=== PATIENT | male | born 1935 | race African-American/Black ===

== ENCOUNTER 2019-06-19 01:58 | Inpatient (IN) | payer MEDICARE, BC ==
[~2019-06-19] VITALS: Ht 160 cm; Wt 45.0 kg
[2019-06-19] VITALS (14 sets, daily range): BP systolic 89–118; BP diastolic 54–69
[2019-06-19 02:16] LABS: BASO # 0.1 x10^3/uL (0.0-0.2); BASO % 1 % (0-3); EOS # 0.1 x10^3/uL (0.0-0.7); EOS % 1 % (0-3); HEMATOCRIT 27.3 % (39.0-53.0); HEMOGLOBIN 8.3 g/dL (13.0-17.5); LYMPH # 0.4 x10^3/uL (1.0-4.8); LYMPH % 3 % (24-48); MEAN CORPUSCULAR HEMOGLOBIN 25 pg (25-35); MEAN CORPUSCULAR HGB CONC 31 g/dL (31-37); MEAN CORPUSCULAR VOLUME 82 fL (79-100); MONO % 7 % (0-9); NEUT # 12.7 x10^3/uL (1.8-7.7); NEUT % 90 % (31-73); PLATELET COUNT 272 x10^3/uL (140-400); RED BLOOD COUNT 3.32 x10^6/uL (4.30-5.70); RED CELL DISTRIBUTION WIDTH 20.6 % (11.5-14.5); WHITE BLOOD COUNT 14.2 x10^3/uL (4.0-11.0)
[2019-06-19 02:28] LABS: PROTHROMBIN TIME PATIENT 12.4 SEC (11.7-14.0)
[2019-06-19] MEDS ORDERED: methylPREDNISolone SOD SUCC PF 125 MG/2 ML VIAL. IV ONE (02:30)
[2019-06-19] MEDS ORDERED: ALBUTEROL SULFATE 2.5 MG/3 ML NEBU. CONT NEB ONE (02:30)
[2019-06-19 02:34] LABS: CALCIUM 9.3 mg/dL (8.5-10.1); CREATININE 0.8 mg/dL (0.7-1.3); GFR 111.2; POTASSIUM 4.4 mmol/L (3.5-5.1)
[2019-06-19 02:40] LABS: ALBUMIN 2.8 g/dL (3.4-5.0); ALBUMIN/GLOBULIN RATIO 0.6 (1.0-1.7); TOTAL BILIRUBIN 0.3 mg/dL (0.2-1.0); TOTAL PROTEIN 7.4 g/dL (6.4-8.2)
[2019-06-19] MEDS ORDERED: IV NORMAL SALINE 500ML BAG 500 ML IV ONE (03:00)
[2019-06-19] MEDS ORDERED: IV NORMAL SALINE 1000ML BAG 1,000 ML IV ONE (03:00)
[2019-06-19] MEDS ORDERED: PIPERACILLIN/TAZOBACTAM 3.375 GM in IV NORMAL SALINE 50ML 50 ML IV ONE (03:00)
[2019-06-19] MEDS ORDERED: NOREPINEPHRIN 8MG/250ML PREMIX 250 ML IV ONE (03:00)
[2019-06-19 03:03] LABS: BASE EXCESS ABG 10 mmol/L (-3-3); HCO3 ABG 36 mmol/L (21-28); PCO2 ABG 56 mmHg (35-46); PO2 ABG 85 mmHg (65-108); SAT O2 ABG 96 % (92-99)
[2019-06-19 03:14] LABS: FIO2 ABG 100
[2019-06-19] MEDS ORDERED: VANCOMYCIN 1.25 GM in IV NORMAL SALINE 250ML 250 ML IV ONE (03:30)
--- NOTE | 2019-06-19 04:18 | PHYS DOC ---
Adult General Chief Complaint Chief Complaint: DYSPNEA/RESPIRATOY DISTRESS HPI HPI Patient is a 84 year old male who is presenting with in by ambulance shortness of breath C MDM for history of present illness Review of Systems Review of Systems limited by acuity Current Medications Current Medications Current Medications Medications (Trade) Dose Ordered Sig/Roberta Start Time Stop Time Status Last Admin Dose Admin Albuterol Sulfate (Ventolin Neb Soln) 10 mg 1X ONCE 06/19/19 02:30 06/19/19 02:31 DC 06/19/19 02:47 10 MG Albuterol/ Ipratropium (Duoneb) 3 ml RTQID 06/19/19 08:00 06/20/19 07:59 UNV Methylprednisolone Sodium Succinate (SOLU-Medrol 125MG VIAL) 125 mg 1X ONCE 06/19/19 02:30 06/19/19 02:31 DC 06/19/19 02:27 125 MG Norepinephrine Bitartrate 250 ml @ 8.438 mls/ hr 1X ONCE 06/19/19 03:00 06/20/19 08:37 Piperacillin Sod/ Tazobactam Sod 3.375 gm/Sodium Chloride 50 ml @ 100 mls/hr 1X ONCE 06/19/19 03:00 06/19/19 03:29 DC 06/19/19 03:15 100 MLS/HR Sodium Chloride 500 ml @ 500 mls/hr 1X ONCE 06/19/19 03:00 06/19/19 03:59 DC Vancomycin HCl (Vanco Per Pharmacy) 1 each PRN DAILY PRN 06/19/19 02:45 UNV Vancomycin HCl 1.25 gm/Sodium Chloride 250 ml @ 166.667 mls/hr 1X ONCE 06/19/19 03:30 06/19/19 04:59 06/19/19 02:45 166.667 MLS/HR Allergies Allergies Allergies Coded Allergies Type Severity Reaction Last Updated Verified Unable to Assess 06/19/19 No Physical Exam Physical Exam Constitutional: Well developed cachectic and ill-appearing HENT: Normocephalic, atraumatic, bilateral external ears normal, oropharynx moist, no oral exudates, nose normal. [] Eyes: PERRLA Neck: Normal range of motion, no tenderness, supple, no stridor. [] Cardiovascular:Heart rate regular rhythm,difficult exam due to bipap Lungs & Thorax: Patient has decreased breath sounds throughout both lungs but worse on the right base there are some rhonchi there faint wheezing Abdomen: Bowel sounds normal, soft, no tenderness, no masses, no pulsatile masses. [] Skin: Warm, dry, no erythema, no rash. [] Back: No tenderness, no CVA tenderness. [] Extremities: No tenderness, no cyanosis, no clubbing, ROM intact 1+ edema bila terally Neurologic: Alert and oriented X 3, normal motor function, normal sensory function, no focal deficits noted. [] Psychologic: Affect normal, judgement normal, mood normal. [] Current Patient Data Vital Signs Vital Signs Date Time Temp Pulse Resp B/P (MAP) Pulse Ox O2 Delivery O2 Flow Rate FiO2 06/19/19 03:05 BiPAP/CPAP 06/19/19 02:30 93 Lab Values Laboratory Tests Test 06/19/19 02:02 06/19/19 02:03 White Blood Count 14.2 x10^3/uL (4.0-11.0) H Red Blood Count 3.32 x10^6/uL (4.30-5.70) L Hemoglobin 8.3 g/dL (13.0-17.5) L Hematocrit 27.3 % (39.0-53.0) L Mean Corpuscular Volume 82 fL (79-100) Mean Corpuscular Hemoglobin 25 pg (25-35) Mean Corpuscular Hemoglobin Concent 31 g/dL (31-37) Red Cell Distribution Width 20.6 % (11.5-14.5) H Platelet Count 272 x10^3/uL (140-400) Neutrophils (%) (Auto) 90 % (31-73) H Lymphocytes (%) (Auto) 3 % (24-48) L Monocytes (%) (Auto) 7 % (0-9) Eosinophils (%) (Auto) 1 % (0-3) Basophils (%) (Auto) 1 % (0-3) Neutrophils # (Auto) 12.7 x10^3/uL (1.8-7.7) H Lymphocytes # (Auto) 0.4 x10^3/uL (1.0-4.8) L Monocytes # (Auto) 1.0 x10^3/uL (0.0-1.1) Eosinophils # (Auto) 0.1 x10^3/uL (0.0-0.7) Basophils # (Auto) 0.1 x10^3/uL (0.0-0.2) Platelet Estimate Pending Prothrombin Time 12.4 SEC (11.7-14.0) Prothrombin Time INR 1.0 (0.8-1.1) Sodium Level 148 mmol/L (136-145) H Potassium Level 4.4 mmol/L (3.5-5.1) Chloride Level 104 mmol/L (98-107) Carbon Dioxide Level 39 mmol/L (21-32) H Anion Gap 5 (6-14) L Blood Urea Nitrogen 15 mg/dL (8-26) Creatinine 0.8 mg/dL (0.7-1.3) Estimated GFR (Cockcroft-Gault) 111.2 BUN/Creatinine Ratio 19 (6-20) Glucose Level 184 mg/dL (70-99) H Lactic Acid Level 1.0 mmol/L (0.4-2.0) Calcium Level 9.3 mg/dL (8.5-10.1) Total Bilirubin 0.3 mg/dL (0.2-1.0) Aspartate Amino Transferase (AST) 24 U/L (15-37) Alanine Aminotransferase (ALT) 23 U/L (16-63) Alkaline Phosphatase 80 U/L (46-116) Troponin I Quantitative < 0.017 ng/mL (0.000-0.055) TG-Xeb-J-Type Natriuretic Peptide 429 pg/mL (0-449) Total Protein 7.4 g/dL (6.4-8.2) Albumin 2.8 g/dL (3.4-5.0) L Albumin/Globulin Ratio 0.6 (1.0-1.7) L Procalcitonin < 0.10 ng/mL (0.00-0.10) O2 Saturation 96 % (92-99) Arterial Blood pH 7.43 (7.35-7.45) Arterial Blood pCO2 at Patient Temp 56 mmHg (35-46) H Arterial Blood pO2 at Patient Temp 85 mmHg (65-108) Arterial Blood HCO3 36 mmol/L (21-28) H Arterial Blood Base Excess 10 mmol/L (-3-3) H FiO2 100 Laboratory Tests 06/19/19 02:02 Laboratory Tests 06/19/19 02:02 EKG EKG [] Interpretation Time: EKG shows sinus tach rate 102 no acute ischemic changes noted QTC 484 Radiology/Procedures Radiology/Procedures [] Impressions: Right lower lobe pneumonia Course & Med Decision Making Course & Med Decision Making Pertinent Labs and Imaging studies reviewed. (See chart for details) [] Critical care time was 40 minutes exclusive of procedures. 84-year-old male with chief complaint of respiratory distress patient has a history of frequent recurrent pneumonia 8 times this year at according to the son history of CHF COPD basically just come home from rehabilitation yesterday and then today had increasing shortness of breath on bruise trimmer arrival was quite tachypneic and hypoxic they put patient on CPAP but only could get the oxygen up to the high 80s. Patient really denies chest pain has been coughing no fever that he knows of history is limited by the patient's acuity as well as the respiratory distress patient arrived on CPAP mdm/ed course Patient was immediately placed on cardiac monitors and BiPAP as well oxygenation did come up into the mid 90s which is quite. There was one she transient hypotensive episode down into around 60/40 however as soon as we initiated fluids and reposition the patient this resolved completely and did not recur as of the time of this dictation at 4:15 AM. We gave 30 mL per kilo fluid bolus we gave broad-spectrum antibiotics chest x- ray does show a right lower lobe pneumonia Lactic acid was 1.0 on reevaluation at 4:15 AM I noted the blood gas actually look pretty good there was no significant acidosis the oxygenation was adequate patient was stable on BiPAP I think we will keep him there for now. I spoke with his son who is in agreement patient is full code. i d/w sanjana for admit Dragon Disclaimer Dragon Disclaimer This electronic medical record was generated, in whole or in part, using a voice recognition dictation system. Departure Departure Impression: Primary Impression: Pneumonia Additional Impression: Acute respiratory failure Disposition: ADMITTED INPATIENT Admitting Physician: Clarence May Condition: GUARDED Referrals: VERONICA GUTIÉRREZ (PCP) Problem Qualifiers NYLA MILLS MD Jun 19, 2019 04:18
[2019-06-19] MEDS: VANCOMYCIN PER PHARMACY MC PRN ×2 (04:39→10:42)
--- NOTE | 2019-06-19 04:43 | NUR ---
Pharmacy Vancomycin Dosing Note S:Consulted to monitor and dose vancomycin started 06/19/19. O:LAVERNE HERRING is a 84 year old M with Pneumonia . Height: 5 feet, 3 inches Weight: 49.625230 kg [place] Body Weight: 56.90 Adjusted Body Weight: 54.10 Dosing Weight: Actual Other Antibiotics: ZOSYN 3.375GM IV X1 IN ER (06/19) LABS: Last BUN: 15 Last Creatinine: 0.8 Creatinine Clearance: 38 mL/min Last WBC: 14.2 Last Procalcitonin: Tmax (past 24 hours): Microbiology: I/O: Drug Levels: Last level: on at Last dose given at Vancomycin Dosing: Loading Dose: 1250 mg x1 06/19/19 0245 Dosing Weight: Actual Target Trough: 15-20 A: Based on: Actual Wt and CrCl P: 1. 06/20/19 0300 Vancomycin 750 mg IV q24h 2. Follow up Trough level on 06/21/19 at 0230 3. Pharmacy will continue to monitor, follow and adjust therapy as needed. KRISTA PHILLIPS RPH, 06/19/19 0443 Signed: 06/19/19 at 0444 by KRISTA PHILLIPS RPH PHA
--- NOTE | 2019-06-19 05:00 | NUR ---
pt admitted to ICU via bed at 0500. Pt is awake on Nasal canula and able to transfer self to ICU bed. Pt connected to monitor and vital signs taken. Pt requested to use the restroom and was able to walk over to toilet with minimal assistance. Pt walked back into bed and placed back on BIPAP. Current vital signs are HR 86, BP 118/61, RR 18, SP02 86%. SP02 trended up to 95% within 1 minute, pt is A/OX3 and was able to answer all admission questions. Pt currently stable, will continue to monitor.
[2019-06-19 05:01] LABS: % EOS 1 % (0-5); % LYMPHS 3 % (24-48); % SEGS 96 % (35-66); ANISOCYTOSIS MOD; PLT ESTIMATE ADEQUATE (ADEQUATE); POLYCHROMASIA SLIGHT; TARGET CELLS FEW
[2019-06-19] MEDS ORDERED: IPRATRPIUM/ALBUTEROL 0.5/2.5MG 3 ML NEBU. NEB SCH (08:00)
--- NOTE | 2019-06-19 08:40 | RAD ---
Indication:Shortness of breath. TECHNIQUE:Portable AP chest X-ray COMPARISON: None FINDINGS: Heart is normal in size. Opacification is seen of the right lower lung zone. Mild bronchiectasis in the medial aspect of the left upper lobe. Otherwise, left lung is clear. No pneumothorax. Visualized bony thorax is within normal limits. IMPRESSION: Opacification in the right lung base may be secondary to atelectasis, pneumonia or aspiration. Underlying lung malignancy not ruled out. Repeat chest x-ray recommended after medical therapy to ensure resolution. Electronically signed by: Sha Batista DO (06/19/2019 8:37 AM) [facility]
[2019-06-19] MEDS ORDERED: TORS20TA2 PO (09:31)
[2019-06-19] MEDS ORDERED: ENOX60DI SQ (09:31)
[2019-06-19] MEDS ORDERED: SITA100T PO (09:31)
[2019-06-19] MEDS ORDERED: TIOT4MIS3 IH (09:31)
[2019-06-19] MEDS ORDERED: AMIO200T4 PO (09:31)
[2019-06-19] MEDS ORDERED: MAGN300C PO (09:31)
[2019-06-19] MEDS ORDERED: GUAI600T47 PO (09:31)
[2019-06-19] MEDS ORDERED: CARV25TA2 PO (09:31)
[2019-06-19] MEDS ORDERED: SENN-37 PO (09:31)
[2019-06-19] MEDS ORDERED: PRED50TA PO (09:31)
[2019-06-19] MEDS ORDERED: TAMS0.4C97 PO (09:31)
[2019-06-19] MEDS ORDERED: LOVA20TA2 PO (09:31)
[2019-06-19] MEDS ORDERED: ASPI81TA59 PO (09:31)
--- NOTE | 2019-06-19 09:38 | CONS ---
DATE OF CONSULTATION: PULMONARY CONSULTATION ATTENDING PHYSICIAN: Clarence May MD REASON FOR CONSULTATION: Respiratory failure, pneumonia. HISTORY OF PRESENT ILLNESS: The patient is an 84-year-old male who was brought into [facility] because of shortness of breath. He has been coughing. He had no chest pain. No fever, no chills, no headaches, no nausea, vomiting or diarrhea. He was seen in the Emergency Room and I have reviewed the patient's chest x-ray, it shows extensive consolidation involving the right lower lobe. There is a pocket of air as well and possibility of lung abscess cannot be ruled out. The patient was started on vancomycin and Zosyn, I have been asked to see him for further evaluation. He was initially on BiPAP and currently on 6 liters cannula. His ABG showed a pH of 7.43, pCO2 of 56 and a pO2 of 85 with bicarbonate of 36 and 100% of oxygen. PAST MEDICAL HISTORY: Suspect severe COPD, smoked for at least 45-50 years. PAST SURGICAL HISTORY: No recent surgeries. ALLERGIES: None mentioned in [employer]. MEDICATIONS: Reviewed as listed in the MRAD. REVIEW OF SYSTEMS: Twelve-point system obtained. Pertinent positives discussed in my history of present illness, otherwise noncontributory. All systems that were negative were reviewed as well. FAMILY HISTORY: Noncontributory to lungs. PHYSICAL EXAMINATION: VITAL SIGNS: His blood pressure is on the low side 93 systolic, but not on any pressors. Pulse ox is around 95% on 5 liters. HEENT: Sclerae nonicteric. NECK: Supple. LUNGS: With diminished breath sounds, right base. CARDIOVASCULAR: With a regular rate. ABDOMEN: Soft. EXTREMITIES: With no pitting edema. LABORATORY DATA: Labs were reviewed. White cell count 14.2, hemoglobin 8.3 and platelets are 272. ABG discussed in my history of present illness. BUN and creatinine normal. IMPRESSION: 1. Acute on chronic hypoxic respiratory failure secondary to extensive community-acquired pneumonia involving the right lung. Cannot exclude the possibility of lung abscess. 2. Abnormal chest x-ray consistent with right lower lobe consolidation/pneumonia. 3. Moderate protein-calorie malnutrition. 4. Long history of tobacco use, suspect severe chronic obstructive pulmonary disease. 5. Mild hypernatremia. 6. Procalcitonin level less than 0.1, but clinical suspicion for pneumonia is high. RECOMMENDATIONS: 1. Continue with present oxygen at 5-6 liters. Keep saturation 94% and above and use p.r.n. BiPAP. 2. Noncontrast CT chest to better assess for consolidation and to rule out any abscess or empyema. 3. Broad-spectrum antibiotic with vancomycin and Zosyn. 4. We will follow the response to antibiotics in few days. 5. Obtain cultures if fever spikes. 6. Bronchodilators. 7. DVT prophylaxis. 8. Discussed with RN. Critical care time 35 minutes. HARIS ROBLEDO MD DR: ANNABELLA/rosanna JOB#: [id number] / [id number]
--- NOTE | 2019-06-19 10:31 | RAD ---
PQRS Compliance statement: One or more of the following individualized dose reduction techniques were utilized for this examination: 1. Automated exposure control. 2. Adjustment of the mA and/or kV according to patient size. 3. Use of iterative reconstruction technique. Indication:Pneumonia. TECHNIQUE: CT chest without IV contrast with multiplanar reformats. COMPARISON:None FINDINGS: Limited exam due to lack of IV contrast. Heart is moderately enlarged in size. No pericardial effusion. Trace loculated right pleural effusion. Ascending aortic ectasia measuring 3.8 cm in diameter. No enlarged axillary adenopathy. Enlarged mediastinal lymph nodes are seen, the largest measuring 1.7 x 1.3 cm. Evaluation of hilar lymphadenopathy is limited due to lack of IV contrast. Calcified subcarinal lymph nodes are seen likely old healed granulomatous disease. Mild emphysema. Subpleural scarring is seen along the medial aspect of the left upper lobe. Large area of consolidation is seen involving the entire right lower lobe with air bronchograms. Consolidation also seen of the right middle lobe with air bronchograms and interstitial opacities. Multifocal nodular opacities are seen in the dependent portion of the left lower lobe. Visualized noncontrast sections through the liver, spleen, pancreas, adrenals and kidneys within normal limits. Gallstones noted. Compression deformity seen of the T5 vertebral body. No suspicious bony lesion. IMPRESSION: 1. Mediastinal lymphadenopathy may be reactive or metastatic. 2. Large area of consolidations involving the right middle lobe and right lower lobe with air bronchograms. Differential diagnoses includes aspiration or pneumonia. Underlying lung malignancy is not ruled out. Follow-up imaging recommended after medical therapy to ensure resolution. 3. Loculated trace amount of right lower lobe pleural effusion likely parapneumonic effusion. 4. Few nodular opacities in the dependent portion of the left lower lobe likely infectious or aspiration 5. Moderate diffuse emphysema. Electronically signed by: Sha Batista DO (06/19/2019 10:28 AM) [facility]
--- NOTE | 2019-06-19 11:19 | EKG ---
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
--- NOTE | 2019-06-19 11:59 | PDOC ---
Provider Note Provider Note Pt seen.H&P dictated.#[id number]. RON CARBALLO MD Jun 19, 2019 11:59
[2019-06-19] MEDS ORDERED: SENNOSIDES/DOCUSATE 8.6/50MG TABLET. PO PRN (12:00)
[2019-06-19] MEDS ORDERED: DEXTROSE 50% 25 GM / 50ML DISP.SYRIN. IV PRN (12:00)
[2019-06-19] MEDS: PIPERACILLIN/TAZOBACTAM 3.375 GM in IV NORMAL SALINE 50ML 50 ML IV SCH ×3 (12:18→23:01)
[2019-06-19] MEDS: AMIODARONE HCL 200 MG TABLET. PO SCH (12:19)
[2019-06-19] MEDS: CARVEDILOL 3.125 MG TABLET. PO SCH ×2 (12:19→17:20)
[2019-06-19] MEDS: TAMSULOSIN 0.4 MG CAP.ER.24H. PO SCH (12:19)
[2019-06-19] MEDS: ASPIRIN CHEWABLE 81 MG TABLET. PO SCH (12:19)
[2019-06-19] MEDS: LINAGLIPTIN 5 MG TABLET PO SCH (12:19)
[2019-06-19] MEDS: ENOXAPARIN 40 MG/0.4 ML SYRINGE. SQ SCH ×2 (12:20→23:01)
[2019-06-19] MEDS: INSULIN LISPRO 300 UNITS/3 ML VIAL. SQ SCH ×2 (12:27→17:00)
[2019-06-19] MEDS: TORSEMIDE 20 MG TABLET. PO SCH (12:30)
[2019-06-19] MEDS: IPRATRPIUM/ALBUTEROL 0.5/2.5MG 3 ML NEBU. NEB SCH ×3 (12:36→20:00)
--- NOTE | 2019-06-19 13:44 | HP ---
ADMIT DATE: 06/19/2019 MEDICAL HISTORY AND PHYSICAL LOCATION: 107. REASON FOR ADMISSION TO THE HOSPITAL: Respiratory failure, pneumonia, community acquired. HISTORY OF PRESENT ILLNESS: The patient is an 84-year-old male, patient of Dr. Vu. He has been in and out of the hospital. He usually goes to [facility] and was there with pneumonia in the past. He came with shortness of breath, was hypoxic. X-ray shows right lung infiltrate. White count elevated to 14,000, was placed on BiPAP initially and his condition improved. He was also hypotension, was given fluids and was admitted to the ICU. The patient was seen by Dr. Gupta, Pulmonology and ordered a CT of the chest and the patient is started on broad-spectrum antibiotics. PAST MEDICAL HISTORY: Severe COPD, smoker for at least 50 years. Denies any heart problems, diabetes, heart disease. The patient has history of diabetes, hypertension, hyperlipidemia, COPD, and cardiac arrhythmias. PAST SURGICAL HISTORY: No surgeries. ALLERGIES: None available. MEDICATIONS AT HOME: Amiodarone 200 mg daily, aspirin 81 mg daily, Mucinex, senna, Flomax 0.4 daily, Lasix 20 mg daily, Coreg 25 mg twice a day, lovastatin 20 mg daily, magnesium daily, prednisone 10 mg daily, Januvia 100 mg daily, Stiolto daily. FAMILY HISTORY: Unremarkable. REVIEW OF SYMPTOMS: The patient says he is weak, has pain in the right side of the chest and coughing up some sputum. Rest of the 14-system was reviewed. PHYSICAL EXAMINATION: GENERAL: The patient looks older and cachectic. VITAL SIGNS: Temperature 97, pulse 107, respirations 28, blood pressure 115/66, 88 on BiPAP. HEENT: Head is atraumatic. Pupils equal. Oral cavity, slight congestion. NECK: Supple. Thyroid not enlarged. JVD not elevated. CHEST: COPD pattern. CARDIOVASCULAR: S1, S2. LUNGS: Diminished breath sounds and crackles in the right side of the base. ABDOMEN: Soft, bowel sounds present, no mass palpable. EXTERNAL GENITALIA: No Wright. RECTAL: Deferred. EXTREMITIES: No calf tenderness, no edema. NEUROLOGIC: Moving all extremities. LABORATORY DATA: Shows a white count of 14, hemoglobin 8.3, platelets 272. INR 1.0. Electrolytes show sodium 148, potassium 4.4, chloride 104, bicarbonate 39. BUN 15, creatinine 0.8, glucose 184. Lactic acid 1.0. LFTs normal. Troponin is negative. Blood gas shows pH 7.43, pCO2 of 56, pO2 of 85, bicarbonate 36, 96 saturation 100%, FiO2. Chest x-ray, right lung infiltrates. EKG done, report is pending. FINAL IMPRESSION: 1. Health care-acquired pneumonia. 2. Chronic obstructive pulmonary disease. 3. Acute hypoxic respiratory failure, requiring BiPAP. 4. History of cardiac arrhythmias, on amiodarone. 5. History of hypertension. 6. Diabetes. 7. Hyperlipidemia. 8. Benign prostatic hypertrophy. 9.H/o lung cancer 3 yrs ago ,had radiation and chemo, do not want to pursue any more. 10.Recent small pulmonary embolism, diagnosed at . PLAN: At this time, was admit to hospital after blood cultures, sputum and broad-spectrum antibiotics, Zosyn and vancomycin. Pulmonary is consulted and breathing treatments. Was given Solu-Medrol 1 dose and we will check for sputum and blood cultures. CT scan of the chest was ordered and see how the patient can respond and DVT prophylaxis.Poor health,poor prognosis. RON CARBALLO MD DR: MELVIN/rosanna JOB#: [id number] / [id number] VERONICA Crowley VINAYA MD MTDD
--- NOTE | 2019-06-19 15:33 | NUR ---
Bedside swallow evaluation completed. Please refer to full report in intervention section for additional information. Impressions: Mild oropharyngeal dysphagia. Pt demonstrated minimally prolonged mastication w/ solids and mildly increased respiratory effort especially as trials progressed as well as possible subtle s/s aspiration w/ straw drinking of thin liquids. .Suspect possible mild timing or weakness component. Pt has a significant history of multiple pneumonias as reported by pt and family including statement from family that "they have been told his recurrent pneumonia is due to aspiration." Pt and family report no knowledge of prior videoswallow assessment and no hx of modified diet such as soft food or thickened liquids when asked by PATHOLOGIST. Recommendations: Dysphagia II diet w/ thin liquids. No straws. ST f/u for dysphagia per POC. Consider possible videoswallow in future if concerns for aspiration are ongoing. Precautions d/w pt and family and posted in room.
--- NOTE | 2019-06-19 15:55 | NUR ---
Spoke with Dr. May regarding lovenox dosage. Orders received to keep current dosage till tomorrow and to get the most recent medication list from . Will continue to monitor. Addendum: 06/19/19 at 1715 by CURTIS SAWYER RN This RN spoke to pt daughter, whom stated that did not start the lovenox, [facility] did this past Thursday before discharge. This RN called R, spoke to CARLINE Ascencio who looked back into the chart and saw that the medication comment stated it is for PPX. This RN also made a copy of the medication report from [facility] that states the lovenox 60 mg SQ BID for PPX. The doctor following the patient at [facility] was Darline Maxwell, but no further information was able to be obtained at this time. Will continue to monitor.
[2019-06-19] MEDS: LACTOBACILLUS RHAMNOSUS GG 1 CAPSULE. PO SCH (23:00)
[2019-06-19] MEDS: ATORVASTATIN CALCIUM 10 MG TABLET. PO SCH (23:00)
[2019-06-20] VITALS (17 sets, daily range): BP systolic 92–127; BP diastolic 52–84
[2019-06-20] MEDS ORDERED: VANCOMYCIN 750 MG in IV NORMAL SALINE 250ML 250 ML IV SCH (03:00)
[2019-06-20 04:47] LABS: BASO % 0 % (0-3); EOS % 0 % (0-3); HEMATOCRIT 24.2 % (39.0-53.0); HEMOGLOBIN 7.3 g/dL (13.0-17.5); LYMPH # 0.2 x10^3/uL (1.0-4.8); LYMPH % 2 % (24-48); MEAN CORPUSCULAR HEMOGLOBIN 25 pg (25-35); MEAN CORPUSCULAR HGB CONC 30 g/dL (31-37); MEAN CORPUSCULAR VOLUME 82 fL (79-100); MONO % 7 % (0-9); NEUT # 13.9 x10^3/uL (1.8-7.7); NEUT % 91 % (31-73); PLATELET COUNT 224 x10^3/uL (140-400); RED BLOOD COUNT 2.95 x10^6/uL (4.30-5.70); RED CELL DISTRIBUTION WIDTH 20.6 % (11.5-14.5); WHITE BLOOD COUNT 15.2 x10^3/uL (4.0-11.0)
[2019-06-20 05:28] LABS: CALCIUM 9.2 mg/dL (8.5-10.1); CREATININE 0.8 mg/dL (0.7-1.3); GFR 111.2
[2019-06-20] MEDS: PIPERACILLIN/TAZOBACTAM 3.375 GM in IV NORMAL SALINE 50ML 50 ML IV SCH (05:40)
[2019-06-20] MEDS: IPRATRPIUM/ALBUTEROL 0.5/2.5MG 3 ML NEBU. NEB SCH ×4 (07:11→19:48)
[2019-06-20 07:15] LABS: BILIRUBIN,URINE NEGATIVE (NEG); CLARITY,URINE CLEAR; COLOR,URINE YELLOW; NITRITE,URINE NEGATIVE (NEG); PH,URINE 5.5; PROTEIN,URINE NEGATIVE (NEG-TRACE); UROBILINOGEN,URINE 0.2 mg/dL (0.2 mg/dL)
[2019-06-20 07:26] LABS: SQUAMOUS EPITHELIAL CELL,UR FEW /LPF
[2019-06-20 07:27] LABS: WBC,URINE OCC /HPF (0-4)
[2019-06-20 07:29] LABS: BACTERIA,URINE FEW /HPF (0-FEW); RBC,URINE OCC /HPF (0-2)
--- NOTE | 2019-06-20 08:05 | RAD ---
PORTABLE CHEST 1V 06/20/2019 5:00 AM INDICATION: Pneumonia COMPARISON: 06/19/2019 TECHNIQUE: Portable frontal view of the chest is provided. FINDINGS: The cardiomediastinal silhouette is similar in appearance. Airspace consolidation at the right lung base appears similar. There is increased patchy interstitial changes at the left lung base compared to prior examination. There is biapical pleural-parenchymal scarring, left greater than right. There is increased right hilar prominence which may represent lymphadenopathy versus vascular prominence. There are no significant pleural effusions. There is no pulmonary vascular congestion. No pneumothorax. IMPRESSION: There is worsened aeration of the left lung base with similar aeration of the right lung. Findings may reflect worsening pulmonary infiltrates. Persistent right hilar prominence which may represent lymphadenopathy versus vascular prominence. Electronically signed by: Arlette Bahena MD (06/20/2019 8:03 AM) [facility]
[2019-06-20] MEDS: LINAGLIPTIN 5 MG TABLET PO SCH (08:22)
[2019-06-20] MEDS: CARVEDILOL 3.125 MG TABLET. PO SCH ×2 (08:22→17:44)
[2019-06-20] MEDS: TORSEMIDE 20 MG TABLET. PO SCH (08:23)
[2019-06-20] MEDS: AMIODARONE HCL 200 MG TABLET. PO SCH (08:31)
[2019-06-20] MEDS: TAMSULOSIN 0.4 MG CAP.ER.24H. PO SCH (08:31)
[2019-06-20] MEDS: ASPIRIN CHEWABLE 81 MG TABLET. PO SCH (08:31)
[2019-06-20] MEDS: LACTOBACILLUS RHAMNOSUS GG 1 CAPSULE. PO SCH ×2 (08:31→20:36)
[2019-06-20] MEDS: ENOXAPARIN 40 MG/0.4 ML SYRINGE. SQ SCH ×3 (08:37→19:20)
[2019-06-20] MEDS: INSULIN LISPRO 300 UNITS/3 ML VIAL. SQ SCH ×3 (08:52→17:53)
[2019-06-20] MEDS ORDERED: NON FORMULARY ITEM (Tiotropium Br/Olodaterol HCl (Stiolto Respimat Inhal Spray) 4 GM) IH SCH (09:00)
[2019-06-20] MEDS ORDERED: ALBUTEROL SULFATE 2.5 MG/3 ML NEBU. NEB PRN (09:45)
--- NOTE | 2019-06-20 09:46 | PDOC ---
Infectious Disease Note Vital Sign Vital Signs Vital Signs Date Time Temp Pulse Resp B/P (MAP) Pulse Ox O2 Delivery O2 Flow Rate FiO2 06/20/19 08:31 114 117/75 06/20/19 08:00 Nasal Cannula 4.5 06/20/19 07:23 97.9 20 92 97.9 Labs Lab Laboratory Tests Test 06/19/19 12:22 06/19/19 16:43 06/20/19 03:35 06/20/19 06:15 Glucose (Fingerstick) 251 mg/dL (70-99) 183 mg/dL (70-99) White Blood Count 15.2 x10^3/uL (4.0-11.0) Red Blood Count 2.95 x10^6/uL (4.30-5.70) Hemoglobin 7.3 g/dL (13.0-17.5) Hematocrit 24.2 % (39.0-53.0) Mean Corpuscular Volume 82 fL (79-100) Mean Corpuscular Hemoglobin 25 pg (25-35) Mean Corpuscular Hemoglobin Concent 30 g/dL (31-37) Red Cell Distribution Width 20.6 % (11.5-14.5) Platelet Count 224 x10^3/uL (140-400) Neutrophils (%) (Auto) 91 % (31-73) Lymphocytes (%) (Auto) 2 % (24-48) Monocytes (%) (Auto) 7 % (0-9) Eosinophils (%) (Auto) 0 % (0-3) Basophils (%) (Auto) 0 % (0-3) Neutrophils # (Auto) 13.9 x10^3/uL (1.8-7.7) Lymphocytes # (Auto) 0.2 x10^3/uL (1.0-4.8) Monocytes # (Auto) 1.0 x10^3/uL (0.0-1.1) Eosinophils # (Auto) 0.0 x10^3/uL (0.0-0.7) Basophils # (Auto) 0.0 x10^3/uL (0.0-0.2) Sodium Level 149 mmol/L (136-145) Potassium Level 4.0 mmol/L (3.5-5.1) Chloride Level 108 mmol/L (98-107) Carbon Dioxide Level 36 mmol/L (21-32) Anion Gap 5 (6-14) Blood Urea Nitrogen 12 mg/dL (8-26) Creatinine 0.8 mg/dL (0.7-1.3) Estimated GFR (Cockcroft-Gault) 111.2 Glucose Level 165 mg/dL (70-99) Calcium Level 9.2 mg/dL (8.5-10.1) Urine Collection Type Unknown Urine Color Yellow Urine Clarity Clear Urine pH 5.5 Urine Specific [place] 1.020 Urine Protein Negative mg/dL (NEG-TRACE) Urine Glucose (UA) Negative mg/dL (NEG) Urine Ketones (Stick) Negative mg/dL (NEG) Urine Blood Negative (NEG) Urine Nitrite Negative (NEG) Urine Bilirubin Negative (NEG) Urine Urobilinogen Dipstick 0.2 mg/dL (0.2 mg/dL) Urine Leukocyte Esterase Negative (NEG) Urine RBC Occ /HPF (0-2) Urine WBC Occ /HPF (0-4) Urine Squamous Epithelial Cells Few /LPF Urine Bacteria Few /HPF (0-FEW) Urine Mucus Slight /LPF Test 06/20/19 08:46 Glucose (Fingerstick) 161 mg/dL (70-99) Micro Microbiology 06/19/19 Blood Culture - Preliminary, Resulted NO GROWTH AFTER 1 DAY Objective Assessment GNR sepsis - POA 06/19 Acute hypoxic resp failure Pneumonia cannot r/o ? Lung abscess Leukocytosis - S/p steroid DM Arrhythmias Plan Plan of Care Cont vanc Change to Meropenem to cover potential rest bacteria states he thinks he had been on abx at home Add Micafungin with abx exposure and risk for yeast in lung with ? abscess F/u labs and cults Thank you Tried to call daughter Cleo [phone] but no answer #[id number] NEIL ORELLANA MD Jun 20, 2019 09:46
--- NOTE | 2019-06-20 10:15 | PDOC ---
PROGRESS NOTES Subjective Subjective transferred out of ICU Objective Objective Vital Signs Date Time Temp Pulse Resp B/P (MAP) Pulse Ox O2 Delivery O2 Flow Rate FiO2 06/20/19 08:31 114 117/75 06/20/19 08:00 Nasal Cannula 4.5 06/20/19 07:23 97.9 20 92 97.9 Intake and Output 06/20/19 06:59 Intake Total 500 ml Output Total 1150 ml Balance -650 ml Intake Oral 200 ml IV Total 300 ml Output Urine Total 1150 ml Physical Exam Abdomen: Normal bowel sounds, Soft Heart: Regular rate, Normal S1 Extremities: Other (edema) General: mild distress Lungs: Other (dec breath sounds, wheezing and rales) Neck: Supple Neuro: Normal speech Psych/Mental Status: Mood NL Skin: No breakdown Assessment Assessment FINAL IMPRESSION:Gram neg bacteremia. 1. Health care associated pneumonia. 2. Chronic obstructive pulmonary disease. 3. Acute hypoxic respiratory failure, requiring BiPAP. 4. History of cardiac arrhythmias, on amiodarone. 5. History of hypertension. 6. Diabetes. 7. Hyperlipidemia. 8. Benign prostatic hypertrophy. 9.Lung cancer had radiation and chemo at [facility] 10.Recent PE on Lovenox PLAN: blood c/s positive for gram neg bactermia. spoke with pts daughter, he was in and out of hospitals with recenet Pneumonias. [facility] with [facility]enox bid shots. spoke with pulmoanry. ID on the case. poor prognosis. pt want everything done. At this time, was admit to hospital after blood cultures, sputum and broad-spectrum antibiotics, Zosyn and vancomycin. Pulmonary is consulted and breathing treatments. Was given Solu-Medrol 1 dose and we will check for sputum and blood cultures. CT scan of the chest was ordered and see how the patient can respond and DVT prophylaxis. Comment Review of Relevant I have reviewed the following items татьяна (where applicable) has been applied. Labs Laboratory Tests Test 06/19/19 12:22 06/19/19 16:43 06/20/19 03:35 06/20/19 06:15 Glucose (Fingerstick) 251 mg/dL (70-99) 183 mg/dL (70-99) White Blood Count 15.2 x10^3/uL (4.0-11.0) Red Blood Count 2.95 x10^6/uL (4.30-5.70) Hemoglobin 7.3 g/dL (13.0-17.5) Hematocrit 24.2 % (39.0-53.0) Mean Corpuscular Volume 82 fL (79-100) Mean Corpuscular Hemoglobin 25 pg (25-35) Mean Corpuscular Hemoglobin Concent 30 g/dL (31-37) Red Cell Distribution Width 20.6 % (11.5-14.5) Platelet Count 224 x10^3/uL (140-400) Neutrophils (%) (Auto) 91 % (31-73) Lymphocytes (%) (Auto) 2 % (24-48) Monocytes (%) (Auto) 7 % (0-9) Eosinophils (%) (Auto) 0 % (0-3) Basophils (%) (Auto) 0 % (0-3) Neutrophils # (Auto) 13.9 x10^3/uL (1.8-7.7) Lymphocytes # (Auto) 0.2 x10^3/uL (1.0-4.8) Monocytes # (Auto) 1.0 x10^3/uL (0.0-1.1) Eosinophils # (Auto) 0.0 x10^3/uL (0.0-0.7) Basophils # (Auto) 0.0 x10^3/uL (0.0-0.2) Sodium Level 149 mmol/L (136-145) Potassium Level 4.0 mmol/L (3.5-5.1) Chloride Level 108 mmol/L (98-107) Carbon Dioxide Level 36 mmol/L (21-32) Anion Gap 5 (6-14) Blood Urea Nitrogen 12 mg/dL (8-26) Creatinine 0.8 mg/dL (0.7-1.3) Estimated GFR (Cockcroft-Gault) 111.2 Glucose Level 165 mg/dL (70-99) Calcium Level 9.2 mg/dL (8.5-10.1) Urine Collection Type Unknown Urine Color Yellow Urine Clarity Clear Urine pH 5.5 Urine Specific [place] 1.020 Urine Protein Negative mg/dL (NEG-TRACE) Urine Glucose (UA) Negative mg/dL (NEG) Urine Ketones (Stick) Negative mg/dL (NEG) Urine Blood Negative (NEG) Urine Nitrite Negative (NEG) Urine Bilirubin Negative (NEG) Urine Urobilinogen Dipstick 0.2 mg/dL (0.2 mg/dL) Urine Leukocyte Esterase Negative (NEG) Urine RBC Occ /HPF (0-2) Urine WBC Occ /HPF (0-4) Urine Squamous Epithelial Cells Few /LPF Urine Bacteria Few /HPF (0-FEW) Urine Mucus Slight /LPF Test 06/20/19 08:46 Glucose (Fingerstick) 161 mg/dL (70-99) Microbiology 06/19/19 Blood Culture - Preliminary, Resulted NO GROWTH AFTER 1 DAY Medications Current Medications Albuterol Sulfate (Ventolin Neb Soln) 2.5 mg PRN Q4HRS PRN NEB SHORTNESS OF BREATH; Start 06/20/19 at 09:45 Albuterol/ Ipratropium (Duoneb) 3 ml RTQID NEB Last administered on 06/20/19 07:11; Start 06/19/19 at 12:00 Amiodarone HCl (Cordarone) 200 mg DAILY PO Last administered on 06/20/19 08:31; Start 06/19/19 at 12:30 Aspirin (Children'S Aspirin) 81 mg DAILY PO Last administered on 06/20/19 08:31; Start 06/19/19 at 12:30 Atorvastatin Calcium (Lipitor) 5 mg QHS PO Last administered on 06/19/19 23:00; Start 06/19/19 at 21:00 Carvedilol (Coreg) 3.125 mg BIDWMEALS PO Last administered on 06/20/19 08:22; Start 06/19/19 at 12:30 Dextrose (Dextrose 50%-Water Syringe) 12.5 gm PRN Q15MIN PRN IV SEE COMMENTS; Start 06/19/19 at 12:00 Enoxaparin Sodium (Lovenox 40mg Syringe) 40 mg Q12HR SQ Last administered on 06/19/19at 23:01; Start 06/19/19 at 12:30 Ferrous Sulfate (Iron Oral Solution) 300 mg BIDWMEALS PO ; Start 06/20/19 at 17:00 Guaifenesin (Mucinex) 600 mg BID PO Last administered on 06/20/19 08:31; Start 06/19/19 at 12:30 Insulin Human Lispro (HumaLOG) 0-7 UNITS TIDWMEALS SQ Last administered on 10/7/19at 08:52; Start 06/19/19 at 12:00 Lactobacillus Rhamnosus (Culturelle) 1 cap BID PO Last administered on 06/20/19 08:31; Start 06/19/19 at 21:00 Linagliptin (Tradjenta) 5 mg DAILY PO Last administered on 06/20/19 08:22; Start 06/19/19 at 12:30 Meropenem 500 mg/ Sodium Chloride 50 ml @ 100 mls/hr Q6HRS IV ; Start 06/20/19 at 12:00 Micafungin Sodium 100 mg/Dextrose 100 ml @ 100 mls/hr Q24H IV ; Start 06/20/19 at 11:00 Non-Formulary Medication (Tiotropium Br/ Olodaterol HCl (Stiolto Respimat Inhal [place])) 4 gm DAILY IH ; Start 06/20/19 at 09:00; Status UNV Piperacillin Sod/ Tazobactam Sod 3.375 gm/Sodium Chloride 50 ml @ 100 mls/hr Q6HRS IV Last administered on 06/20/19at 05:40; Start 06/19/19 at 12:00; Stop 06/20/19 at 09:37; Status DC Senna/Docusate Sodium (Senna Plus) 2 tab PRN BID PRN PO CONSTIPATION; Start 06/19/19 at 12:00 Tamsulosin HCl (Flomax) 0.8 mg DAILY PO Last administered on 06/20/19at 08:31; Start 06/19/19 at 12:30 Torsemide (Demadex) 5 mg DAILY PO Last administered on 06/20/19at 08:23; Start 06/19/19 at 12:30 Vancomycin HCl (Vancomycin Trough Level) 1 each 1X ONCE MC ; Start 06/21/19 at 02:30; Stop 06/21/19 at 02:31 Vancomycin HCl 750 mg/Sodium Chloride 250 ml @ 250 mls/hr Q24H IV Last administered on 06/20/19at 03:00; Start 06/20/19 at 03:00 Vitals/I & O Vital Sign - Last 24 Hours 06/19/19 06/19/19 06/19/19 06/19/19 12:00 12:19 12:19 12:36 Temp 97.9 97.9 Pulse 95 Resp 20 B/P (MAP) 111/64 (80) 111/64 111/64 Pulse Ox 100 90 O2 Delivery Nasal Cannula Nasal Cannula O2 Flow Rate 6.0 4.0 06/19/19 06/19/19 06/19/19 06/19/19 13:53 15:00 15:15 17:20 Temp 97.6 97.6 Pulse 95 116 Resp 24 B/P (MAP) 116/68 (84) 116/68 Pulse Ox 96 O2 Delivery Nasal Cannula Nasal Cannula Nasal Cannula O2 Flow Rate 6.0 6.0 4.0 06/19/19 06/19/19 06/19/19 06/19/19 19:15 19:35 20:06 22:20 Temp 97.9 97.9 Pulse 113 Resp 20 B/P (MAP) 113/65 (81) Pulse Ox 95 94 86 O2 Delivery Nasal Cannula Nasal Cannula Nasal Cannula BiPAP/CPAP O2 Flow Rate 6.0 6.0 6.0 06/19/19 06/20/19 06/20/19 06/20/19 23:36 03:18 03:32 05:44 Temp 97.9 97.6 97.9 97.6 Pulse 113 113 Resp 18 20 B/P (MAP) 102/69 (80) 107/64 (78) Pulse Ox 97 92 O2 Delivery BiPAP/CPAP Nasal Cannula BiPAP/CPAP BiPAP/CPAP O2 Flow Rate 6.0 06/20/19 06/20/19 06/20/19 06/20/19 07:11 07:23 08:00 08:22 Temp 97.9 97.9 Pulse 114 114 Resp 20 B/P (MAP) 117/75 (89) 117/75 Pulse Ox 91 92 O2 Delivery Nasal Cannula Nasal Cannula Nasal Cannula O2 Flow Rate 4.0 6.0 4.5 06/20/19 08:31 Pulse 114 B/P (MAP) 117/75 Intake and Output 06/19/19 06/19/19 06/20/19 14:59 22:59 06:59 Intake Total 500 ml Output Total 700 ml 450 ml Balance -700 ml 50 ml RON CARBALLO MD Jun 20, 2019 10:15
--- NOTE | 2019-06-20 10:44 | CONS ---
DATE OF CONSULTATION: 06/20/2019 LOCATION: The patient's room is 654. REQUESTING PHYSICIAN: Clarence May MD REASON FOR CONSULTATION: Positive blood cultures. HISTORY OF PRESENT ILLNESS: The patient is an 84-year-old gentleman, who is somewhat of a poor historian. According to the notes, he normally seeks care at and was apparently there recently for pneumonia. He presented to [facility] with shortness of breath and hypoxia. X-rays showed infiltrate with a white blood cell count elevation at 14,000. He underwent a chest CT, also showed some mediastinal lymphadenopathy, large area of consolidation involving the right middle lobe and right lower lobe with air bronchograms, and loculated trace amount of right lower lobe pleural effusion, likely parapneumonic and a few nodular opacities, likely infectious or aspiration and mild diffuse emphysema. He was placed on vancomycin and Zosyn. Blood cultures on are now positive for gram-negative rods. Currently, the patient is lying in bed. He is uncertain if he had fevers or chills or sweats prior to coming. He is coughing some sputum up. Has no gross chest pain. Denies any hemoptysis. No nausea, vomiting. No diarrhea. No dysuria, frequency, or urgency. PAST MEDICAL HISTORY: Positive for severe COPD, smoker for 50 years, diabetes, hypertension, hyperlipidemia, cardiac arrhythmias. Does have a history of pneumonia, and denies any history of Staph or strep, uncertain if he has ever had any urinary tract infections. REVIEW OF SYSTEMS: Otherwise negative. ALLERGIES: He denies any allergies. SOCIAL HISTORY: He is a former smoker. FAMILY HISTORY: Noncontributory. Denies any ill contacts. CURRENT MEDICATIONS: Include vancomycin, Zosyn, amiodarone, aspirin, Lipitor, Coreg, ferrous sulfate, guaifenesin, insulin, lactobacillus, Tradjenta, Flomax, torsemide. PHYSICAL EXAMINATION: VITAL SIGNS: He has been afebrile, current temperature is 97.9, pulse 114, respirations 20, blood pressure 117/75, 4.5 nasal cannula. CONSTITUTIONAL: He is alert. He looks tired. He is not in any acute distress. HEENT: He has normal conjunctivae. Oral cavity, oropharynx was dry. NECK: Without JVD. LUNGS: Without wheeze, decreased in the bases. HEART: S1, S2. ABDOMEN: Soft, no guarding, no rebound. EXTREMITIES: Thin. No clubbing, cyanosis. SKIN: Warm to touch without signs of rash. NEUROLOGIC: He is nonfocal, answered questions. PSYCHIATRIC: Affect appears tired, but was appropriate. LABORATORY DATA: Today, white count 15.2, hemoglobin 7.3, platelets of 91, lymphocytes are 2. Creatinine 0.8. Glucose of 165. Lactic acid was 1. Normal liver function study tests. Urine had a few bacteria, few squamous cells, occasional WBCs, nitrite and leukocyte esterase were negative. Radiology this morning, worsening aeration of left lung base compared to aeration of the right, may reflect worsening pulmonary infiltrates, persistent right hilar prominence. IMPRESSION: 1. Gram-negative sepsis, present on admission on 06/19. 2. Acute hypoxic respiratory failure. 3. Pneumonia, cannot rule out questionable lung abscess. 4. Leukocytosis, status post steroids. 5. Diabetes. 6. Arrhythmias. RECOMMENDATIONS: 1. We will continue vancomycin for now. We will change to meropenem to cover potential resistant bacteria. He states he thinks he had been on antibiotics at home. Also, we will add micafungin with antibiotic exposure risk for yeast in the lung with questionable abscess. 2. Follow up labs and cultures. I did try to call his daughter, Cleo, , but there was no answer. Thank you for allowing me to participate in the patient's care. Should you have any questions, please do not hesitate to contact me. NEIL ORELLANA MD DR: ROSA/rosanna JOB#: [id number] / [id number]
--- NOTE | 2019-06-20 10:56 | PDOC ---
PULMONARY PROGRESS NOTES Subjective MILD soa ON CANULA Vitals Vital Signs Date Time Temp Pulse Resp B/P (MAP) Pulse Ox O2 Delivery O2 Flow Rate FiO2 06/20/19 08:31 114 117/75 06/20/19 08:00 Nasal Cannula 4.5 06/20/19 07:23 97.9 20 92 97.9 General: Alert, Mild Distress Lungs: Other (crackles right side) Cardiovascular: S1 Abdomen: Soft Neuro Exam: Alert Extremities: No Edema Skin: Warm Labs Laboratory Tests Test 06/19/19 02:02 06/19/19 02:03 06/19/19 12:22 06/19/19 16:43 White Blood Count 14.2 x10^3/uL (4.0-11.0) Red Blood Count 3.32 x10^6/uL (4.30-5.70) Hemoglobin 8.3 g/dL (13.0-17.5) Hematocrit 27.3 % (39.0-53.0) Mean Corpuscular Volume 82 fL (79-100) Mean Corpuscular Hemoglobin 25 pg (25-35) Mean Corpuscular Hemoglobin Concent 31 g/dL (31-37) Red Cell Distribution Width 20.6 % (11.5-14.5) Platelet Count 272 x10^3/uL (140-400) Neutrophils (%) (Auto) 90 % (31-73) Lymphocytes (%) (Auto) 3 % (24-48) Monocytes (%) (Auto) 7 % (0-9) Eosinophils (%) (Auto) 1 % (0-3) Basophils (%) (Auto) 1 % (0-3) Neutrophils # (Auto) 12.7 x10^3/uL (1.8-7.7) Lymphocytes # (Auto) 0.4 x10^3/uL (1.0-4.8) Monocytes # (Auto) 1.0 x10^3/uL (0.0-1.1) Eosinophils # (Auto) 0.1 x10^3/uL (0.0-0.7) Basophils # (Auto) 0.1 x10^3/uL (0.0-0.2) Segmented Neutrophils % 96 % (35-66) Lymphocytes % 3 % (24-48) Eosinophils % 1 % (0-5) Platelet Estimate Adequate (ADEQUATE) Polychromasia Slight Anisocytosis Mod Target Cells Few Prothrombin Time 12.4 SEC (11.7-14.0) Prothromb Time International Ratio 1.0 (0.8-1.1) Sodium Level 148 mmol/L (136-145) Potassium Level 4.4 mmol/L (3.5-5.1) Chloride Level 104 mmol/L (98-107) Carbon Dioxide Level 39 mmol/L (21-32) Anion Gap 5 (6-14) Blood Urea Nitrogen 15 mg/dL (8-26) Creatinine 0.8 mg/dL (0.7-1.3) Estimated GFR (Cockcroft-Gault) 111.2 BUN/Creatinine Ratio 19 (6-20) Glucose Level 184 mg/dL (70-99) Lactic Acid Level 1.0 mmol/L (0.4-2.0) Calcium Level 9.3 mg/dL (8.5-10.1) Total Bilirubin 0.3 mg/dL (0.2-1.0) Aspartate Amino Transf (AST/SGOT) 24 U/L (15-37) Alanine Aminotransferase (ALT/SGPT) 23 U/L (16-63) Alkaline Phosphatase 80 U/L (46-116) Troponin I Quantitative < 0.017 ng/mL (0.000-0.055) WN-Tti-R-Type Natriuretic Peptide 429 pg/mL (0-449) Total Protein 7.4 g/dL (6.4-8.2) Albumin 2.8 g/dL (3.4-5.0) Albumin/Globulin Ratio 0.6 (1.0-1.7) Procalcitonin < 0.10 ng/mL (0.00-0.10) O2 Saturation 96 % (92-99) Arterial Blood pH 7.43 (7.35-7.45) Arterial Blood pCO2 at Patient Temp 56 mmHg (35-46) Arterial Blood pO2 at Patient Temp 85 mmHg (65-108) Arterial Blood HCO3 36 mmol/L (21-28) Arterial Blood Base Excess 10 mmol/L (-3-3) FiO2 100 Glucose (Fingerstick) 251 mg/dL (70-99) 183 mg/dL (70-99) Test 06/20/19 03:35 06/20/19 06:15 06/20/19 08:46 White Blood Count 15.2 x10^3/uL (4.0-11.0) Red Blood Count 2.95 x10^6/uL (4.30-5.70) Hemoglobin 7.3 g/dL (13.0-17.5) Hematocrit 24.2 % (39.0-53.0) Mean Corpuscular Volume 82 fL (79-100) Mean Corpuscular Hemoglobin 25 pg (25-35) Mean Corpuscular Hemoglobin Concent 30 g/dL (31-37) Red Cell Distribution Width 20.6 % (11.5-14.5) Platelet Count 224 x10^3/uL (140-400) Neutrophils (%) (Auto) 91 % (31-73) Lymphocytes (%) (Auto) 2 % (24-48) Monocytes (%) (Auto) 7 % (0-9) Eosinophils (%) (Auto) 0 % (0-3) Basophils (%) (Auto) 0 % (0-3) Neutrophils # (Auto) 13.9 x10^3/uL (1.8-7.7) Lymphocytes # (Auto) 0.2 x10^3/uL (1.0-4.8) Monocytes # (Auto) 1.0 x10^3/uL (0.0-1.1) Eosinophils # (Auto) 0.0 x10^3/uL (0.0-0.7) Basophils # (Auto) 0.0 x10^3/uL (0.0-0.2) Sodium Level 149 mmol/L (136-145) Potassium Level 4.0 mmol/L (3.5-5.1) Chloride Level 108 mmol/L (98-107) Carbon Dioxide Level 36 mmol/L (21-32) Anion Gap 5 (6-14) Blood Urea Nitrogen 12 mg/dL (8-26) Creatinine 0.8 mg/dL (0.7-1.3) Estimated GFR (Cockcroft-Gault) 111.2 Glucose Level 165 mg/dL (70-99) Calcium Level 9.2 mg/dL (8.5-10.1) Urine Collection Type Unknown Urine Color Yellow Urine Clarity Clear Urine pH 5.5 Urine Specific [place] 1.020 Urine Protein Negative mg/dL (NEG-TRACE) Urine Glucose (UA) Negative mg/dL (NEG) Urine Ketones (Stick) Negative mg/dL (NEG) Urine Blood Negative (NEG) Urine Nitrite Negative (NEG) Urine Bilirubin Negative (NEG) Urine Urobilinogen Dipstick 0.2 mg/dL (0.2 mg/dL) Urine Leukocyte Esterase Negative (NEG) Urine RBC Occ /HPF (0-2) Urine WBC Occ /HPF (0-4) Urine Squamous Epithelial Cells Few /LPF Urine Bacteria Few /HPF (0-FEW) Urine Mucus Slight /LPF Glucose (Fingerstick) 161 mg/dL (70-99) Laboratory Tests Test 06/19/19 12:22 06/19/19 16:43 06/20/19 03:35 06/20/19 06:15 Glucose (Fingerstick) 251 mg/dL (70-99) 183 mg/dL (70-99) White Blood Count 15.2 x10^3/uL (4.0-11.0) Red Blood Count 2.95 x10^6/uL (4.30-5.70) Hemoglobin 7.3 g/dL (13.0-17.5) Hematocrit 24.2 % (39.0-53.0) Mean Corpuscular Volume 82 fL (79-100) Mean Corpuscular Hemoglobin 25 pg (25-35) Mean Corpuscular Hemoglobin Concent 30 g/dL (31-37) Red Cell Distribution Width 20.6 % (11.5-14.5) Platelet Count 224 x10^3/uL (140-400) Neutrophils (%) (Auto) 91 % (31-73) Lymphocytes (%) (Auto) 2 % (24-48) Monocytes (%) (Auto) 7 % (0-9) Eosinophils (%) (Auto) 0 % (0-3) Basophils (%) (Auto) 0 % (0-3) Neutrophils # (Auto) 13.9 x10^3/uL (1.8-7.7) Lymphocytes # (Auto) 0.2 x10^3/uL (1.0-4.8) Monocytes # (Auto) 1.0 x10^3/uL (0.0-1.1) Eosinophils # (Auto) 0.0 x10^3/uL (0.0-0.7) Basophils # (Auto) 0.0 x10^3/uL (0.0-0.2) Sodium Level 149 mmol/L (136-145) Potassium Level 4.0 mmol/L (3.5-5.1) Chloride Level 108 mmol/L (98-107) Carbon Dioxide Level 36 mmol/L (21-32) Anion Gap 5 (6-14) Blood Urea Nitrogen 12 mg/dL (8-26) Creatinine 0.8 mg/dL (0.7-1.3) Estimated GFR (Cockcroft-Gault) 111.2 Glucose Level 165 mg/dL (70-99) Calcium Level 9.2 mg/dL (8.5-10.1) Urine Collection Type Unknown Urine Color Yellow Urine Clarity Clear Urine pH 5.5 Urine Specific [place] 1.020 Urine Protein Negative mg/dL (NEG-TRACE) Urine Glucose (UA) Negative mg/dL (NEG) Urine Ketones (Stick) Negative mg/dL (NEG) Urine Blood Negative (NEG) Urine Nitrite Negative (NEG) Urine Bilirubin Negative (NEG) Urine Urobilinogen Dipstick 0.2 mg/dL (0.2 mg/dL) Urine Leukocyte Esterase Negative (NEG) Urine RBC Occ /HPF (0-2) Urine WBC Occ /HPF (0-4) Urine Squamous Epithelial Cells Few /LPF Urine Bacteria Few /HPF (0-FEW) Urine Mucus Slight /LPF Test 06/20/19 08:46 Glucose (Fingerstick) 161 mg/dL (70-99) Medications Active Scripts Medications Dose Route/Sig Max Daily Dose Days Date Category Torsemide 20 Mg Tablet 5 Mg PO DAILY 06/19/19 Reported Flomax (Tamsulosin Hcl) 0.4 Mg Cap.er.24h 0.8 Mg PO DAILY 06/19/19 Reported Stiolto Respimat Inhal [place] (Tiotropium Br/Olodaterol HCl) 4 Gm Mist.inhal 4 Gm IH DAILY 06/19/19 Reported Januvia (Sitagliptin Phosphate) 100 Mg Tablet 1 Tab PO DAILY 06/19/19 Reported Senokot-S Tablet (Sennosides/Docusate Sodium) 1 Each Tablet 2 Tab PO PRN BID 06/19/19 Reported Magnesium 300 Mg Capsule (Magnesium Oxide/Mag Aa Chelate) 300 Mg Capsule 400 Mg PO DAILY 06/19/19 Reported Lovenox (Enoxaparin Sodium) 60 Mg/0.6 Ml Disp.syrin 60 Mg SQ BID 06/19/19 Reported Lovastatin 20 Mg Tablet 20 Mg PO HS 06/19/19 Reported Mucinex (Guaifenesin) 600 Mg Tablet.er 600 Mg PO BID 06/19/19 Reported Prednisone 50 Mg Tablet 10 Mg PO DAILY 06/19/19 Reported Carvedilol 25 Mg Tablet 3.125 Mg PO BIDWMEALS 06/19/19 Reported Children's Aspirin (Aspirin) 81 Mg Tab.chew 81 Mg PO DAILY 06/19/19 Reported Amiodarone Hcl 200 Mg Tablet 200 Mg PO DAILY 06/19/[address] CHEST IMPRESSION: 1. Mediastinal lymphadenopathy may be reactive or metastatic. 2. Large area of consolidations involving the right middle lobe and right lower lobe with air bronchograms. Differential diagnoses includes aspiration or pneumonia. Underlying lung malignancy is not ruled out. Follow-up imaging recommended after medical therapy to ensure resolution. 3. Loculated trace amount of right lower lobe pleural effusion likely parapneumonic effusion. 4. Few nodular opacities in the dependent portion of the left lower lobe likely infectious or aspiration 5. Moderate diffuse emphysema. Electronically signed by: Sha Batista DO (06/19/2019 10:28 AM) [email or web address] Impression . 1. Acute on chronic hypoxic respiratory failure secondary to extensive HCAP involving the right lung. 2. Per records from [facility], h/o Left lung cancer , treated with XRT/ Chemo at , ct chest with residual para-aortic SHERYL residual density 3. Moderate protein-calorie malnutrition. 4. Long history of tobacco use, suspect severe chronic obstructive pulmonary disease. 5. Mild hypernatremia. 6. Recent h/o pulmonary embolism at , will get records from , on lovenox. Plan . RECOMMENDATIONS: 1. Continue with present oxygen at 5-6 liters. Keep saturation 94% and above and use p.r.n. BiPAP. 2. CT chest reviewed. 3. Broad-spectrum antibiotic with vancomycin and Meropenum 4. We will follow the response to antibiotics in few days. 5. Obtain cultures if fever spikes. 6. Bronchodilators. 7. full dose AC 8. Obtain records from regarding PE, lung cancer history 9. Discussed with RN.and DR May d/w patient advance directives, wants full code but short term intubation if needed. HARIS ROBLEDO MD Jun 20, 2019 10:56
[2019-06-20] MEDS ORDERED: predniSONE 20 MG TABLET PO ONE (11:00)
[2019-06-20] MEDS: MICAFUNGIN 100 MG in IV DEXTROSE 5% 100ML 100 ML IV SCH (11:40)
--- NOTE | 2019-06-20 11:47 | NUR ---
Assumed care, Venous doppler completed
--- NOTE | 2019-06-20 11:51 | RAD ---
EXAM: Bilateral lower extremity venous Doppler. HISTORY: Bilateral lower extremity pain/swelling. Recent pulmonary embolism. Anticoagulated. COMPARISON: None. FINDINGS: Grayscale and Doppler analysis of the both lower extremity deep venous systems was performed with graded compression and augmentation. The common femoral, greater saphenous, superficial femoral, popliteal and calf veins were assessed. There is no evidence of deep venous thrombosis. IMPRESSION: 1. No evidence of deep venous thrombosis. Electronically signed by: Ron Hu MD (06/20/2019 11:49 AM) [email or web address]
[2019-06-20] MEDS: MEROPENEM 500 MG in IV NORMAL SALINE 50ML 50 ML IV SCH ×3 (12:27→23:56)
[2019-06-20 12:40] LABS: BASE EXCESS ABG 7 mmol/L (-3-3); HCO3 ABG 34 mmol/L (21-28); PO2 ABG 98 mmHg (65-108); SAT O2 ABG 97 % (92-99)
[2019-06-20 12:43] LABS: FIO2 ABG 65; PCO2 ABG 61 mmHg (35-46)
[2019-06-20] MEDS: methylPREDNISolone SOD SUCC PF 40 MG/ML VIAL. IV SCH ×2 (14:36→21:30)
--- NOTE | 2019-06-20 14:44 | NUR ---
1410 Up to bedside per request to use urinal, voided 200cc became unresponsive & fell back into bed, was on oxygen at 5L/nc, sat level 77%, placed back on Bi-pap with same settings as previous 03/05, rate 16 @ 65 %, sat level up to 85%, rearranged in bed, HOB elevated, called for rapid response, sat level 91% @ 1414 opening eyes, , vital signs 100/59-100, RR team present, Don Harrison RT, Jumana Duarte RN nursing dive supervisor, ICU Jodie Castillo RN also present, [address] May received order to transfer to ICU. Continues to cough up delgado sputum, HOB elevated.
--- NOTE | 2019-06-20 15:06 | NUR ---
Transferred to ICU per bed by Jodie Castillo< RN
[2019-06-20] MEDS: VANCOMYCIN PER PHARMACY MC PRN (15:11)
--- NOTE | 2019-06-20 15:15 | NUR ---
Rapid resp: Called to rm 654 for c/o resp distress, low sat upon standing to urinate.Pt was on 5l n/c at that time. Pt familiar to this nurse. On arrioval, pt on Bipap with sat 94%. A&O TURNER VSS. Pt denied any discomfort and talking under mask. pt spit up mod amt creamy foamy sputum unchanged from yesterday. Spoke with Dr Gupta and would prefer pt to be back in ICU with fragile resp status (pneumonia and lung cancer) To ICU per bed and NC 5L then Bipap in ICU
--- NOTE | 2019-06-20 15:45 | NUR ---
SW following pt for dc planning. Chart reviewed and discussed with RN. Pt is an ICU transfer from the weekend. Pt is currently living with his son and was admitted to [facility] after leaving a day before from [facility]. PT/OT- recommends home health but on hold today. ID following pt. Pt is going to be transferred to ICU. SW will provide a handoff to ICU SS.
--- NOTE | 2019-06-20 17:00 | NUR ---
Pt transferred to ICU RM 109 @ 1515 today. Bipap placed with 65% FiO2. Pt alert and oriented. No complaints of pain.
[2019-06-20] MEDS: FERROUS SULFATE ORAL 300 MG/5 ML SOLUTION. PO SCH (17:43)
--- NOTE | 2019-06-20 18:34 | PDOC2 ---
PALLIATIVE CARE Palliative Care Note Palliative Care Consult requested to address goals of care Medical Assessment per medical record;. 1. Acute on chronic hypoxic respiratory failure secondary to extensive HCAP involving the right lung. 2. Per records from [facility], h/o Left lung cancer , treated with XRT/ Chemo at , ct chest with residual para-aortic SHERYL residual density 3. Moderate protein-calorie malnutrition. 4. Long history of tobacco use, suspect severe chronic obstructive pulmonary disease. 5. Mild hypernatremia. 6. Recent h/o pulmonary embolism at , Patient alert. Spoke with daughter. States decisions are made as a family. Will arrange family meeting when family available. Full Code. ASHLEY FUENTES Jun 20, 2019 18:34
[2019-06-20] MEDS: ATORVASTATIN CALCIUM 10 MG TABLET. PO SCH (20:36)
[2019-06-21] VITALS (27 sets, daily range): BP systolic 84–125; BP diastolic 54–78
[2019-06-21] MEDS ORDERED: VANCOMYCIN 750 MG in IV NORMAL SALINE 250ML 250 ML IV SCH (03:00)
[2019-06-21 03:08] LABS: VANC TR 5.4 mcg/mL (10.0-20.0)
[2019-06-21] MEDS: VANCOMYCIN PER PHARMACY MC PRN (03:21)
--- NOTE | 2019-06-21 03:32 | NUR ---
Pharmacy Vancomycin Dosing Note S: Consulted to monitor and dose vancomycin started 06/19/19. O: LAVERNE HERRING is a 84 year old M with Pneumonia, . Other Antibiotics: MERREM 500MG IV Q6H (06/20 - ) MYCAMINE 100MG IV Q24H (06/20 - ) ZOSYN - D/C'D LABS: Last BUN: 12 Last Creatinine: 0.8 Creatinine Clearance: 34 mL/min Last WBC: 15.2 Last Procalcitonin: <0.1 Tmax (past 24 hours): 98.2 Microbiology: BLOOD: GNR IN / BOTTLES I/O: 500/1150 Drug Levels: Last Trough level: 5.4 on 06/21/19 at 0235 Last dose given 06/20/19 at 0300 Vancomycin Dosing: Dosing Weight: Actual Target Trough: 15-20 A: Based on: Katherine Church Wt and CrCl P: 1. 06/21/19 0300 Increase Vancomycin 750 mg IV q12h 2. Follow up Trough level on 06/22/19 at 0230 3. Pharmacy will continue to monitor, follow and adjust therapy as needed. KRISTA PHILLIPS RPH, 06/21/19331 Signed: 06/21/19 at 0333 by KRISTA PHILLIPS RPH PHA
[2019-06-21 04:56] LABS: BASO % 0 % (0-3); EOS % 0 % (0-3); HEMATOCRIT 23.1 % (39.0-53.0); LYMPH # 0.2 x10^3/uL (1.0-4.8); LYMPH % 2 % (24-48); MEAN CORPUSCULAR HEMOGLOBIN 25 pg (25-35); MEAN CORPUSCULAR HGB CONC 30 g/dL (31-37); MEAN CORPUSCULAR VOLUME 81 fL (79-100); MONO # 0.2 x10^3/uL (0.0-1.1); MONO % 2 % (0-9); NEUT # 11.3 x10^3/uL (1.8-7.7); NEUT % 96 % (31-73); PLATELET COUNT 183 x10^3/uL (140-400); RED BLOOD COUNT 2.84 x10^6/uL (4.30-5.70); RED CELL DISTRIBUTION WIDTH 20.2 % (11.5-14.5); WHITE BLOOD COUNT 11.8 x10^3/uL (4.0-11.0)
[2019-06-21 04:58] LABS: HEMOGLOBIN 6.9 g/dL (13.0-17.5)
[2019-06-21 05:02] LABS: CALCIUM 9.2 mg/dL (8.5-10.1); GFR 85.9; POTASSIUM 4.2 mmol/L (3.5-5.1)
[2019-06-21] MEDS: MEROPENEM 500 MG in IV NORMAL SALINE 50ML 50 ML IV SCH ×4 (05:35→23:51)
[2019-06-21] MEDS: methylPREDNISolone SOD SUCC PF 40 MG/ML VIAL. IV SCH ×4 (05:35→21:30)
--- NOTE | 2019-06-21 07:10 | PDOC ---
Infectious Disease Note Subjective Subjective More comfortable. Still cough but less. No blood No F/C/D/N/itch ROS ROS o/w neg Vital Sign Vital Signs Vital Signs Date Time Temp Pulse Resp B/P (MAP) Pulse Ox O2 Delivery O2 Flow Rate FiO2 06/21/19 06:00 80 18 98/62 (74) 95 BiPAP/CPAP 06/21/19 05:04 4.0 06/21/19 04:00 98.1 98.1 Physical Exam PHYSICAL EXAM CONSTITUTIONAL: He is alert. He looks less tired. He is not in any acute distress.Coop - looks kendrick HEENT: He has normal conjunctivae. Oral cavity, oropharynx was dry. NECK: Without JVD. LUNGS: mild right rhonchi HEART: S1, S2. ABDOMEN: Soft, no guarding, no rebound. EXTREMITIES: Thin. No clubbing, cyanosis. SKIN: Warm to touch without signs of rash. NEUROLOGIC: He is nonfocal, answered questions. PSYCHIATRIC: Affect appropriate Labs Lab Laboratory Tests Test 06/20/19 08:46 06/20/19 11:37 06/20/19 12:15 06/20/19 17:43 Glucose (Fingerstick) 161 mg/dL (70-99) 140 mg/dL (70-99) 153 mg/dL (70-99) O2 Saturation 97 % (92-99) Arterial Blood pH 7.36 (7.35-7.45) Arterial Blood pCO2 at Patient Temp 61 mmHg (35-46) Arterial Blood pO2 at Patient Temp 98 mmHg (65-108) Arterial Blood HCO3 34 mmol/L (21-28) Arterial Blood Base Excess 7 mmol/L (-3-3) FiO2 65 Test 06/20/19 20:35 06/21/19 02:35 06/21/19 04:30 Glucose (Fingerstick) 131 mg/dL (70-99) Vancomycin Level Trough 5.4 mcg/mL (10.0-20.0) Vancomycin Last Dose Date 06/20/19 Vancomycin Last Dose Time 0300 White Blood Count 11.8 x10^3/uL (4.0-11.0) Red Blood Count 2.84 x10^6/uL (4.30-5.70) Hemoglobin 6.9 g/dL (13.0-17.5) Hematocrit 23.1 % (39.0-53.0) Mean Corpuscular Volume 81 fL (79-100) Mean Corpuscular Hemoglobin 25 pg (25-35) Mean Corpuscular Hemoglobin Concent 30 g/dL (31-37) Red Cell Distribution Width 20.2 % (11.5-14.5) Platelet Count 183 x10^3/uL (140-400) Neutrophils (%) (Auto) 96 % (31-73) Lymphocytes (%) (Auto) 2 % (24-48) Monocytes (%) (Auto) 2 % (0-9) Eosinophils (%) (Auto) 0 % (0-3) Basophils (%) (Auto) 0 % (0-3) Neutrophils # (Auto) 11.3 x10^3/uL (1.8-7.7) Lymphocytes # (Auto) 0.2 x10^3/uL (1.0-4.8) Monocytes # (Auto) 0.2 x10^3/uL (0.0-1.1) Eosinophils # (Auto) 0.0 x10^3/uL (0.0-0.7) Basophils # (Auto) 0.0 x10^3/uL (0.0-0.2) Sodium Level 148 mmol/L (136-145) Potassium Level 4.2 mmol/L (3.5-5.1) Chloride Level 108 mmol/L (98-107) Carbon Dioxide Level 38 mmol/L (21-32) Anion Gap 2 (6-14) Blood Urea Nitrogen 16 mg/dL (8-26) Creatinine 1.0 mg/dL (0.7-1.3) Estimated GFR (Cockcroft-Gault) 85.9 Glucose Level 187 mg/dL (70-99) Calcium Level 9.2 mg/dL (8.5-10.1) Micro Microbiology 06/19/19 Blood Culture - Preliminary, Resulted NO GROWTH AFTER 1 DAY Objective Assessment GNR sepsis - POA 06/19 Acute hypoxic resp failure - U/S - neg for DVT - improved this am - on Bipap overnight Pneumonia cannot r/o ? Lung abscess Leukocytosis - S/p steroid - better Anemia DM Arrhythmias Plan Plan of Care Discont vanc as improving with low Level Cont Meropenem to cover potential rest bacteria states he thinks he had been on abx at home Cont Micafungin with abx exposure and risk for yeast in lung with ? abscess F/u labs and cults Anemia per primary D/w nursing NEIL ORELLANA MD Jun 21, 2019 07:10
--- NOTE | 2019-06-21 07:51 | RAD ---
PORTABLE CHEST 1V 06/21/2019 5:00 AM INDICATION: CHF, pneumonia COMPARISON: 06/20/2019 TECHNIQUE: Portable frontal view of the chest is provided. FINDINGS: The cardiomediastinal silhouette is similar in appearance. Similar consolidative change at the right lung base with small to moderate right pleural effusion. Coarse interstitial changes appears stable. Patchy interstitial airspace disease at the left lung base is not significantly changed. Similar left retrocardiac density is noted. No new airspace consolidation. No pneumothorax. Similar appearance of the visualized osseous structures. IMPRESSION: Aeration of the lungs appears similar to the prior examination. Electronically signed by: Arlette Bahena MD (06/21/2019 7:48 AM) [facility]
--- NOTE | 2019-06-21 08:14 | NUR ---
Pt transferred to ICU and will require new orders to resume therapy services. Will await new orders once medically stable. Addendum: 06/21/19 at 0815 by PARAG STOUT PT Amended: Links added.
[2019-06-21] MEDS: LACTOBACILLUS RHAMNOSUS GG 1 CAPSULE. PO SCH ×2 (08:26→21:29)
[2019-06-21] MEDS: FERROUS SULFATE ORAL 300 MG/5 ML SOLUTION. PO SCH ×2 (08:26→17:33)
[2019-06-21] MEDS: TORSEMIDE 20 MG TABLET. PO SCH (08:26)
[2019-06-21] MEDS: AMIODARONE HCL 200 MG TABLET. PO SCH (08:27)
[2019-06-21] MEDS: LINAGLIPTIN 5 MG TABLET PO SCH (08:27)
[2019-06-21] MEDS: ASPIRIN CHEWABLE 81 MG TABLET. PO SCH (08:27)
[2019-06-21] MEDS: TAMSULOSIN 0.4 MG CAP.ER.24H. PO SCH (08:27)
[2019-06-21] MEDS: CARVEDILOL 3.125 MG TABLET. PO SCH ×2 (08:27→17:34)
[2019-06-21] MEDS: BUMETANIDE 1 MG/4 ML VIAL. IV SCH ×2 (08:28→13:57)
[2019-06-21] MEDS: ENOXAPARIN 40 MG/0.4 ML SYRINGE. SQ SCH ×2 (08:28→21:29)
[2019-06-21] MEDS: INSULIN LISPRO 300 UNITS/3 ML VIAL. SQ SCH ×3 (08:28→17:35)
[2019-06-21] MEDS: IPRATRPIUM/ALBUTEROL 0.5/2.5MG 3 ML NEBU. NEB SCH ×4 (08:46→20:04)
[2019-06-21] MEDS ORDERED: predniSONE 10 MG TABLET PO SCH (09:00)
--- NOTE | 2019-06-21 09:30 | PDOC ---
PULMONARY PROGRESS NOTES Subjective TRANSFERRED TO ICU PLACE ON BIPAP LAST VONDA PT NOT MORE SOA NOW OFF BIPAP ON 02 Vitals Vital Signs Date Time Temp Pulse Resp B/P (MAP) Pulse Ox O2 Delivery O2 Flow Rate FiO2 06/21/19 09:19 98.7 102 20 110/63 98.7 06/21/19 08:46 97 Nasal Cannula 5.0 ROS: No Nausea, No Chest Pain, No Abdominal Pain, No Increase Cough General: Alert, Mild Distress Lungs: Crackles Cardiovascular: S1, S2 Abdomen: Soft Neuro Exam: Alert Extremities: No Edema Skin: Warm Labs Laboratory Tests Test 06/19/19 12:22 06/19/19 16:43 06/20/19 03:35 06/20/19 06:15 Glucose (Fingerstick) 251 mg/dL (70-99) 183 mg/dL (70-99) White Blood Count 15.2 x10^3/uL (4.0-11.0) Red Blood Count 2.95 x10^6/uL (4.30-5.70) Hemoglobin 7.3 g/dL (13.0-17.5) Hematocrit 24.2 % (39.0-53.0) Mean Corpuscular Volume 82 fL (79-100) Mean Corpuscular Hemoglobin 25 pg (25-35) Mean Corpuscular Hemoglobin Concent 30 g/dL (31-37) Red Cell Distribution Width 20.6 % (11.5-14.5) Platelet Count 224 x10^3/uL (140-400) Neutrophils (%) (Auto) 91 % (31-73) Lymphocytes (%) (Auto) 2 % (24-48) Monocytes (%) (Auto) 7 % (0-9) Eosinophils (%) (Auto) 0 % (0-3) Basophils (%) (Auto) 0 % (0-3) Neutrophils # (Auto) 13.9 x10^3/uL (1.8-7.7) Lymphocytes # (Auto) 0.2 x10^3/uL (1.0-4.8) Monocytes # (Auto) 1.0 x10^3/uL (0.0-1.1) Eosinophils # (Auto) 0.0 x10^3/uL (0.0-0.7) Basophils # (Auto) 0.0 x10^3/uL (0.0-0.2) Sodium Level 149 mmol/L (136-145) Potassium Level 4.0 mmol/L (3.5-5.1) Chloride Level 108 mmol/L (98-107) Carbon Dioxide Level 36 mmol/L (21-32) Anion Gap 5 (6-14) Blood Urea Nitrogen 12 mg/dL (8-26) Creatinine 0.8 mg/dL (0.7-1.3) Estimated GFR (Cockcroft-Gault) 111.2 Glucose Level 165 mg/dL (70-99) Calcium Level 9.2 mg/dL (8.5-10.1) Urine Collection Type Unknown Urine Color Yellow Urine Clarity Clear Urine pH 5.5 Urine Specific [place] 1.020 Urine Protein Negative mg/dL (NEG-TRACE) Urine Glucose (UA) Negative mg/dL (NEG) Urine Ketones (Stick) Negative mg/dL (NEG) Urine Blood Negative (NEG) Urine Nitrite Negative (NEG) Urine Bilirubin Negative (NEG) Urine Urobilinogen Dipstick 0.2 mg/dL (0.2 mg/dL) Urine Leukocyte Esterase Negative (NEG) Urine RBC Occ /HPF (0-2) Urine WBC Occ /HPF (0-4) Urine Squamous Epithelial Cells Few /LPF Urine Bacteria Few /HPF (0-FEW) Urine Mucus Slight /LPF Test 06/20/19 08:46 06/20/19 11:37 06/20/19 12:15 06/20/19 17:43 Glucose (Fingerstick) 161 mg/dL (70-99) 140 mg/dL (70-99) 153 mg/dL (70-99) O2 Saturation 97 % (92-99) Arterial Blood pH 7.36 (7.35-7.45) Arterial Blood pCO2 at Patient Temp 61 mmHg (35-46) Arterial Blood pO2 at Patient Temp 98 mmHg (65-108) Arterial Blood HCO3 34 mmol/L (21-28) Arterial Blood Base Excess 7 mmol/L (-3-3) FiO2 65 Test 06/20/19 20:35 06/21/19 02:35 06/21/19 04:30 06/21/19 08:25 Glucose (Fingerstick) 131 mg/dL (70-99) 155 mg/dL (70-99) Vancomycin Level Trough 5.4 mcg/mL (10.0-20.0) Vancomycin Last Dose Date 06/20/19 Vancomycin Last Dose Time 0300 White Blood Count 11.8 x10^3/uL (4.0-11.0) Red Blood Count 2.84 x10^6/uL (4.30-5.70) Hemoglobin 6.9 g/dL (13.0-17.5) Hematocrit 23.1 % (39.0-53.0) Mean Corpuscular Volume 81 fL (79-100) Mean Corpuscular Hemoglobin 25 pg (25-35) Mean Corpuscular Hemoglobin Concent 30 g/dL (31-37) Red Cell Distribution Width 20.2 % (11.5-14.5) Platelet Count 183 x10^3/uL (140-400) Neutrophils (%) (Auto) 96 % (31-73) Lymphocytes (%) (Auto) 2 % (24-48) Monocytes (%) (Auto) 2 % (0-9) Eosinophils (%) (Auto) 0 % (0-3) Basophils (%) (Auto) 0 % (0-3) Neutrophils # (Auto) 11.3 x10^3/uL (1.8-7.7) Lymphocytes # (Auto) 0.2 x10^3/uL (1.0-4.8) Monocytes # (Auto) 0.2 x10^3/uL (0.0-1.1) Eosinophils # (Auto) 0.0 x10^3/uL (0.0-0.7) Basophils # (Auto) 0.0 x10^3/uL (0.0-0.2) Sodium Level 148 mmol/L (136-145) Potassium Level 4.2 mmol/L (3.5-5.1) Chloride Level 108 mmol/L (98-107) Carbon Dioxide Level 38 mmol/L (21-32) Anion Gap 2 (6-14) Blood Urea Nitrogen 16 mg/dL (8-26) Creatinine 1.0 mg/dL (0.7-1.3) Estimated GFR (Cockcroft-Gault) 85.9 Glucose Level 187 mg/dL (70-99) Calcium Level 9.2 mg/dL (8.5-10.1) Laboratory Tests Test 06/20/19 11:37 06/20/19 12:15 06/20/19 17:43 06/20/19 20:35 Glucose (Fingerstick) 140 mg/dL (70-99) 153 mg/dL (70-99) 131 mg/dL (70-99) O2 Saturation 97 % (92-99) Arterial Blood pH 7.36 (7.35-7.45) Arterial Blood pCO2 at Patient Temp 61 mmHg (35-46) Arterial Blood pO2 at Patient Temp 98 mmHg (65-108) Arterial Blood HCO3 34 mmol/L (21-28) Arterial Blood Base Excess 7 mmol/L (-3-3) FiO2 65 Test 06/21/19 02:35 06/21/19 04:30 06/21/19 08:25 Vancomycin Level Trough 5.4 mcg/mL (10.0-20.0) Vancomycin Last Dose Date 06/20/19 Vancomycin Last Dose Time 0300 White Blood Count 11.8 x10^3/uL (4.0-11.0) Red Blood Count 2.84 x10^6/uL (4.30-5.70) Hemoglobin 6.9 g/dL (13.0-17.5) Hematocrit 23.1 % (39.0-53.0) Mean Corpuscular Volume 81 fL (79-100) Mean Corpuscular Hemoglobin 25 pg (25-35) Mean Corpuscular Hemoglobin Concent 30 g/dL (31-37) Red Cell Distribution Width 20.2 % (11.5-14.5) Platelet Count 183 x10^3/uL (140-400) Neutrophils (%) (Auto) 96 % (31-73) Lymphocytes (%) (Auto) 2 % (24-48) Monocytes (%) (Auto) 2 % (0-9) Eosinophils (%) (Auto) 0 % (0-3) Basophils (%) (Auto) 0 % (0-3) Neutrophils # (Auto) 11.3 x10^3/uL (1.8-7.7) Lymphocytes # (Auto) 0.2 x10^3/uL (1.0-4.8) Monocytes # (Auto) 0.2 x10^3/uL (0.0-1.1) Eosinophils # (Auto) 0.0 x10^3/uL (0.0-0.7) Basophils # (Auto) 0.0 x10^3/uL (0.0-0.2) Sodium Level 148 mmol/L (136-145) Potassium Level 4.2 mmol/L (3.5-5.1) Chloride Level 108 mmol/L (98-107) Carbon Dioxide Level 38 mmol/L (21-32) Anion Gap 2 (6-14) Blood Urea Nitrogen 16 mg/dL (8-26) Creatinine 1.0 mg/dL (0.7-1.3) Estimated GFR (Cockcroft-Gault) 85.9 Glucose Level 187 mg/dL (70-99) Calcium Level 9.2 mg/dL (8.5-10.1) Glucose (Fingerstick) 155 mg/dL (70-99) Medications Active Scripts Medications Dose Route/Sig Max Daily Dose Days Date Category Torsemide 20 Mg Tablet 5 Mg PO DAILY 06/19/19 Reported Flomax (Tamsulosin Hcl) 0.4 Mg Cap.er.24h 0.8 Mg PO DAILY 06/19/19 Reported Stiolto Respimat Inhal [place] (Tiotropium Br/Olodaterol HCl) 4 Gm Mist.inhal 4 Gm IH DAILY 06/19/19 Reported Januvia (Sitagliptin Phosphate) 100 Mg Tablet 1 Tab PO DAILY 06/19/19 Reported Senokot-S Tablet (Sennosides/Docusate Sodium) 1 Each Tablet 2 Tab PO PRN BID 06/19/19 Reported Magnesium 300 Mg Capsule (Magnesium Oxide/Mag Aa Chelate) 300 Mg Capsule 400 Mg PO DAILY 06/19/19 Reported Lovenox (Enoxaparin Sodium) 60 Mg/0.6 Ml Disp.syrin 60 Mg SQ BID 06/19/19 Reported Lovastatin 20 Mg Tablet 20 Mg PO HS 06/19/19 Reported Mucinex (Guaifenesin) 600 Mg Tablet.er 600 Mg PO BID 06/19/19 Reported Prednisone 50 Mg Tablet 10 Mg PO DAILY 06/19/19 Reported Carvedilol 25 Mg Tablet 3.125 Mg PO BIDWMEALS 06/19/19 Reported Children's Aspirin (Aspirin) 81 Mg Tab.chew 81 Mg PO DAILY 06/19/19 Reported Amiodarone Hcl 200 Mg Tablet 200 Mg PO DAILY 06/19/[address] CHEST IMPRESSION: 1. Mediastinal lymphadenopathy may be reactive or metastatic. 2. Large area of consolidations involving the right middle lobe and right lower lobe with air bronchograms. Differential diagnoses includes aspiration or pneumonia. Underlying lung malignancy is not ruled out. Follow-up imaging recommended after medical therapy to ensure resolution. 3. Loculated trace amount of right lower lobe pleural effusion likely parapneumonic effusion. 4. Few nodular opacities in the dependent portion of the left lower lobe likely infectious or aspiration 5. Moderate diffuse emphysema. Electronically signed by: Sha Batista DO (06/19/2019 10:28 AM) [facility] – [place], [id number] Impression . 1. Acute on chronic hypoxic respiratory failure secondary to extensive HCAP involving the right lung. SUPSPECT GRAM POS/ NEGATIVE 2. Per records from health care resort, h/o Left lung cancer , treated with XRT/ Chemo at , ct chest with residual para-aortic SHERYL residual density 3. Moderate protein-calorie malnutrition. 4. Long history of tobacco use, suspect severe chronic obstructive pulmonary disease. 5. Mild hypernatremia. 6. Recent h/o pulmonary embolism at , will get records from , on lovenox. 7. SEVERE MALNUTRITION POA 8. ACUTE BLOOD LOSS ANEMIA 9. VENOUS DOPPLER OF LOWER EXR NEGATIVE Plan . TRANSFUSE PRN BIPAP ANITBX PER ID ON ANTICOAGULANT IF CONTINUE TO DROP HGB MAY NEED TO HOLD AC NUTRITION SUPPORT CCT 30 MINUTES REVIEWING DATA/ XRAYS/ D/W FAMILY AT BEDSIDE/RN AND FORMULATION A PLAN GRETCHEN PAULSON MD Jun 21, 2019 09:30
--- NOTE | 2019-06-21 10:22 | PDOC ---
PROGRESS NOTES Subjective Subjective moved back to ICU last evening due to sob and hypoxia, rapid response. Objective Objective Vital Signs Date Time Temp Pulse Resp B/P (MAP) Pulse Ox O2 Delivery O2 Flow Rate FiO2 06/21/19 09:19 98.7 102 20 110/63 98.7 06/21/19 09:00 100 Nasal Cannula 5.0 Intake and Output 06/21/19 07:00 Intake Total 410 ml Output Total 1000 ml Balance -590 ml Intake Oral 60 ml IV Total 350 ml Output Urine Total 1000 ml Physical Exam Abdomen: Normal bowel sounds, Soft Heart: Regular rate, Normal S1 Extremities: Other (edema) General: mild distress Lungs: Other (dec breath sounds, wheezing and rales) Neck: Supple Neuro: Normal speech Psych/Mental Status: Mood NL Skin: No breakdown Assessment Assessment FINAL IMPRESSION: Gram neg bacteremia. 1. Health care associated pneumonia.left lung complete involment 2. Chronic obstructive pulmonary disease. 3. Acute hypoxic respiratory failure, requiring BiPAP. 4. History of cardiac arrhythmias, on amiodarone. 5. History of hypertension. 6. Diabetes. 7. Hyperlipidemia. 8. Benign prostatic hypertrophy. 9.Lung cancer had radiation and chemo at 10.Recent PE on Lovenox PLAN: hb 6.9, holding lovenox, transfused 1 unit blood c/s positive for gram neg bactermia. spoke with pts son at bedside, he was in and out of hospitals with recent Pneumonias.at least 5-6 times d/c from health care resort with lovenox bid shots. spoke with pulmoanry, reviewed records from . spoke with ID poor prognosis. Palliative team consult.,No intubation At this time, was admit to hospital after blood cultures, sputum and broad-spectrum antibiotics, Zosyn and vancomycin. Pulmonary is consulted and breathing treatments. Was given Solu-Medrol 1 dose and we will check for sputum and blood cultures. CT scan of the chest was ordered and see how the patient can respond and DVT prophylaxis. Comment Review of Relevant I have reviewed the following items татьяна (where applicable) has been applied. Labs Laboratory Tests Test 06/20/19 11:37 06/20/19 12:15 06/20/19 17:43 06/20/19 20:35 Glucose (Fingerstick) 140 mg/dL (70-99) 153 mg/dL (70-99) 131 mg/dL (70-99) O2 Saturation 97 % (92-99) Arterial Blood pH 7.36 (7.35-7.45) Arterial Blood pCO2 at Patient Temp 61 mmHg (35-46) Arterial Blood pO2 at Patient Temp 98 mmHg (65-108) Arterial Blood HCO3 34 mmol/L (21-28) Arterial Blood Base Excess 7 mmol/L (-3-3) FiO2 65 Test 06/21/19 02:35 06/21/19 04:30 06/21/19 08:25 Vancomycin Level Trough 5.4 mcg/mL (10.0-20.0) Vancomycin Last Dose Date 06/20/19 Vancomycin Last Dose Time 0300 White Blood Count 11.8 x10^3/uL (4.0-11.0) Red Blood Count 2.84 x10^6/uL (4.30-5.70) Hemoglobin 6.9 g/dL (13.0-17.5) Hematocrit 23.1 % (39.0-53.0) Mean Corpuscular Volume 81 fL (79-100) Mean Corpuscular Hemoglobin 25 pg (25-35) Mean Corpuscular Hemoglobin Concent 30 g/dL (31-37) Red Cell Distribution Width 20.2 % (11.5-14.5) Platelet Count 183 x10^3/uL (140-400) Neutrophils (%) (Auto) 96 % (31-73) Lymphocytes (%) (Auto) 2 % (24-48) Monocytes (%) (Auto) 2 % (0-9) Eosinophils (%) (Auto) 0 % (0-3) Basophils (%) (Auto) 0 % (0-3) Neutrophils # (Auto) 11.3 x10^3/uL (1.8-7.7) Lymphocytes # (Auto) 0.2 x10^3/uL (1.0-4.8) Monocytes # (Auto) 0.2 x10^3/uL (0.0-1.1) Eosinophils # (Auto) 0.0 x10^3/uL (0.0-0.7) Basophils # (Auto) 0.0 x10^3/uL (0.0-0.2) Sodium Level 148 mmol/L (136-145) Potassium Level 4.2 mmol/L (3.5-5.1) Chloride Level 108 mmol/L (98-107) Carbon Dioxide Level 38 mmol/L (21-32) Anion Gap 2 (6-14) Blood Urea Nitrogen 16 mg/dL (8-26) Creatinine 1.0 mg/dL (0.7-1.3) Estimated GFR (Cockcroft-Gault) 85.9 Glucose Level 187 mg/dL (70-99) Calcium Level 9.2 mg/dL (8.5-10.1) Glucose (Fingerstick) 155 mg/dL (70-99) Microbiology 06/19/19 Blood Culture - Preliminary, Resulted NO GROWTH AFTER 2 DAYS Medications Current Medications Bumetanide (Bumex) 1 mg BID92 IV Last administered on 06/21/19 08:28; Start 06/21/19 at 09:00 Ferrous Sulfate (Iron Oral Solution) 300 mg BIDWMEALS PO Last administered on 06/21/19at 08:26; Start 06/20/19 at 17:00 Meropenem 500 mg/ Sodium Chloride 50 ml @ 100 mls/hr Q6HRS IV Last administered on 06/21/19at 05:35; Start 06/20/19 at 12:00 Methylprednisolone Sodium Succinate (SOLU-Medrol 40MG VIAL) 60 mg Q8HRS IV Last administered on 06/21/19at 05:35; Start 06/20/19 at 14:00 Micafungin Sodium 100 mg/Dextrose 100 ml @ 100 mls/hr Q24H IV Last administered on 06/20/19at 11:40; Start 06/20/19 at 11:00 Prednisone (Prednisone) 10 mg DAILY PO ; Start 06/21/19 at 09:00; Stop 06/20/19 at 17:19; Status DC Prednisone (Prednisone) 20 mg 1X ONCE PO ; Start 06/20/19 at 11:00; Stop 06/20/19 at 11:01; Status DC Vancomycin HCl (Vancomycin Trough Level) 1 each 1X ONCE MC Last administered on 06/21/19at 02:30; Start 06/21/19 at 02:30; Stop 06/21/19 at 02:31; Status DC Vancomycin HCl (Vancomycin Trough Level) 1 each 1X ONCE MC Last administered on 06/21/19at 02:30; Start 06/21/19 at 02:30; Stop 06/21/19 at 07:00; Status DC Vancomycin HCl 750 mg/Sodium Chloride 250 ml @ 250 mls/hr Q12H IV Last administered on 06/21/19at 03:29; Start 06/21/19 at 03:00; Stop 06/21/19 at 07:21; Status DC Vitals/I & O Vital Sign - Last 24 Hours 06/20/19 06/20/19 06/20/19 06/20/19 10:45 11:39 14:37 15:15 Temp 98.2 98.1 98.2 98.1 Pulse 104 101 102 Resp 20 24 24 B/P (MAP) 127/84 (98) 121/72 (88) 107/70 (82) Pulse Ox 89 96 95 92 O2 Delivery BiPAP/CPAP Nasal Cannula Nasal Cannula O2 Flow Rate 6.0 6.0 6.0 06/20/19 06/20/19 06/20/19 06/20/19 15:30 15:45 16:00 16:00 Pulse 94 94 92 Resp 24 24 24 B/P (MAP) 101/63 (76) 104/57 (73) 93/64 (74) Pulse Ox 93 91 98 O2 Delivery BiPAP/CPAP BiPAP/CPAP Bi-pap BiPAP/CPAP 06/20/19 06/20/19 06/20/19 06/20/19 16:15 17:00 17:23 17:30 Pulse 100 88 88 Resp 24 24 24 B/P (MAP) 102/59 (73) 93/52 (66) 96/54 (68) Pulse Ox 98 100 94 100 O2 Delivery BiPAP/CPAP BiPAP/CPAP BiPAP/CPAP BiPAP/CPAP 06/20/19 06/20/19 06/20/19 06/20/19 17:44 18:00 19:00 19:30 Pulse 96 108 93 Resp 24 28 B/P (MAP) 96/54 92/52 (65) 96/57 (70) Pulse Ox 91 100 O2 Delivery Nasal Cannula Nasal Cannula O2 Flow Rate 6.0 6.0 6.0 06/20/19 06/20/19 06/20/19 06/20/19 19:30 19:50 19:56 20:56 Temp 98.0 98.0 Pulse 96 87 Resp 30 14 B/P (MAP) 101/58 (72) 92/59 (70) Pulse Ox 98 100 97 O2 Delivery Nasal Cannula Nasal Cannula Nasal Cannula Nasal Cannula O2 Flow Rate 6.0 6.0 5.0 5.0 06/20/19 06/20/19 06/20/19 06/20/19 21:25 22:08 22:08 23:00 Pulse 85 91 Resp 16 22 B/P (MAP) 105/62 (76) 96/53 (67) Pulse Ox 100 96 95 O2 Delivery BiPAP/CPAP BiPAP/CPAP BiPAP/CPAP O2 Flow Rate 06/20/19 06/21/19 06/21/19 06/21/19 23:25 00:00 00:00 00:28 Temp 98.5 98.5 Pulse 82 Resp 14 B/P (MAP) 101/58 (72) Pulse Ox 94 95 96 O2 Delivery BiPAP/CPAP BiPAP/CPAP Bi-pap BiPAP/CPAP 06/21/19 06/21/19 06/21/19 06/21/19 01:00 02:00 03:00 03:40 Pulse 83 78 77 Resp 18 15 16 B/P (MAP) 93/57 (69) 92/58 (69) 95/54 (68) Pulse Ox 96 98 97 O2 Delivery BiPAP/CPAP BiPAP/CPAP BiPAP/CPAP Nasal Cannula O2 Flow Rate 5.0 06/21/19 06/21/19 06/21/19 06/21/19 03:40 04:00 05:04 06:00 Temp 98.1 98.1 Pulse 81 80 80 Resp 12 16 18 B/P (MAP) 103/59 (74) 84/62 (69) 98/62 (74) Pulse Ox 100 98 95 O2 Delivery Nasal Cannula Nasal Cannula BiPAP/CPAP O2 Flow Rate 5.0 4.0 4.0 06/21/19 06/21/19 06/21/19 06/21/19 07:00 07:30 07:45 08:00 Temp 98.1 97.8 98.1 97.8 Pulse 83 83 87 Resp 20 20 21 B/P (MAP) 116/78 (91) 116/78 112/69 Pulse Ox 96 O2 Delivery Nasal Cannula O2 Flow Rate 5.0 5.0 06/21/19 06/21/19 06/21/19 06/21/19 08:00 08:00 08:27 08:27 Temp 97.8 97.8 Pulse 84 97 94 Resp 19 B/P (MAP) 113/69 (84) 120/71 120/71 Pulse Ox 95 O2 Delivery Nasal Cannula Nasal Cannula O2 Flow Rate 5.0 5.0 06/21/19 06/21/19 06/21/19 08:46 09:00 09:19 Temp 98.7 98.7 Pulse 98 102 Resp 23 20 B/P (MAP) 113/62 (79) 110/63 Pulse Ox 97 100 O2 Delivery Nasal Cannula Nasal Cannula O2 Flow Rate 5.0 5.0 Intake and Output 06/20/19 06/20/19 06/21/19 15:00 23:00 07:00 Intake Total 60 ml 50 ml 300 ml Output Total 200 ml 550 ml 250 ml Balance -140 ml -500 ml 50 ml RON CARBALLO MD Jun 21, 2019 10:21
[2019-06-21] MEDS: MICAFUNGIN 100 MG in IV DEXTROSE 5% 100ML 100 ML IV SCH (10:42)
[2019-06-21] MEDS ORDERED: FUROSEMIDE 20 MG/2 ML VIAL. IVP ONE (11:15)
--- NOTE | 2019-06-21 11:18 | PDOC2 ---
CARDIAC CONSULT DATE OF CONSULT Date of Consult DATE: 06/21/19 TIME: 10:41 REASON FOR CONSULT Reason for Consult: CHF REFERRING PHYSICIAN Referring Physician: Yadira SOURCE Source: Chart review, Patient HISTORY OF PRESENT ILLNESS HISTORY OF PRESENT ILLNESS This is a pleasant 84 yo male admitted for complains of SOA. Reports that he has been SOA for a while and came from [facility]. He has past hx of lung CA and treated with chemo and radiation. Upon admission he has been noted with pneumonia with severe COPD. He sees Dr. Velazquez as his pcb designer and has had pacemaker before but removed due to infection. He has not had any arrhythmias but has hx of AFIB. He also was noted with PE about 2 months ago and was on eliquis. He has Hgb 6.9 with unclear etiology. Presently he is slightly tachypneic. No CP and no prior hx of CAD. PAST MEDICAL HISTORY Cardiovascular: HTN, Hyperlipidemia Pulmonary: COPD, Pulmonary embolus, Pneumonia GI: GERD Heme/Onc: Cancer (lung) Hepatobiliary: No pertinent hx Psych: No pertinent hx Musculoskeletal: Osteoarthritis Rheumatologic: No pertinent hx Infectious disease: No pertinent hx ENT: No pertinent hx Renal/: Benign prostatic enlarg. Endocrine: No pertinent hx Dermatology: No pertinent hx PAST SURGICAL HISTORY Past Surgical History: Pacemaker (placement and removal. ), Cataract Removal FAMILY HISTORY Family History noncontributory SOCIAL HISTORY Smoke: Quit ALCOHOL: none Drugs: None Lives: Longterm CURRENT MEDICATIONS CURRENT MEDICATIONS Current Medications Medications (Trade) Dose Ordered Sig/Roberta Route PRN Reason Start Time Stop Time Status Last Admin Dose Admin Vancomycin HCl (Vancomycin Trough Level) 1 each 1X ONCE MC 06/21/19 02:30 06/21/19 02:31 DC 06/21/19 02:30 Ferrous Sulfate (Iron Oral Solution) 300 mg BIDWMEALS PO 06/20/19 17:00 06/21/19 08:26 Meropenem 500 mg/ Sodium Chloride 50 ml @ 100 mls/hr Q6HRS IV 06/20/19 12:00 06/21/19 05:35 Micafungin Sodium 100 mg/Dextrose 100 ml @ 100 mls/hr Q24H IV 06/20/19 11:00 06/20/19 11:40 Methylprednisolone Sodium Succinate (SOLU-Medrol 40MG VIAL) 60 mg Q8HRS IV 06/20/19 14:00 06/21/19 05:35 Bumetanide (Bumex) 1 mg BID92 IV 06/21/19 09:00 06/21/19 08:28 Vancomycin HCl 750 mg/Sodium Chloride 250 ml @ 250 mls/hr Q12H IV 06/21/19 03:00 06/21/19 07:21 DC 06/21/19 03:29 Vancomycin HCl (Vancomycin Trough Level) 1 each 1X ONCE 06/21/19 02:30 06/21/19 07:00 DC 06/21/19 02:30 ALLERGIES ALLERGIES: Coded Allergies: Unable to Assess (Unverified , 06/19/19) ROS Review of System 14 point ROS evaluated with pertinent positives noted per HPI PHYSICAL EXAM General: Alert, Oriented X3, Cooperative, mild distress, Other (emaciated) HEENT: Atraumatic, Mucous membr. moist/pink Lungs: Other (diminisehd, basilar crackles) Heart: Regular rate (SR), Other (distant heart sounds) Abdomen: Soft, No tenderness Extremities: No cyanosis, Other (3+ bilateral LE pitting edema) Skin: No breakdown Neuro: Normal speech, Sensation intact Psych/Mental Status: Mental status NL, Mood NL MUSCULOSKELETAL: Osteoarthritic changes both hands VITALS/I&O VITALS/I&O: Vital Signs Date Time Temp Pulse Resp B/P (MAP) Pulse Ox O2 Delivery O2 Flow Rate FiO2 06/21/19 09:19 98.7 102 20 110/63 98.7 06/21/19 09:00 100 Nasal Cannula 5.0 I & O 06/20/19 06/20/19 06/21/19 14:59 22:59 06:59 Intake Total 60 ml 50 ml 300 ml Output Total 200 ml 550 ml 250 ml Balance -140 ml -500 ml 50 ml LABS Lab: Laboratory Tests Test 06/20/19 11:37 06/20/19 12:15 06/20/19 17:43 06/20/19 20:35 Glucose (Fingerstick) 140 mg/dL (70-99) H 153 mg/dL (70-99) H 131 mg/dL (70-99) H O2 Saturation 97 % (92-99) Arterial Blood pH 7.36 (7.35-7.45) Arterial Blood pCO2 at Patient Temp 61 mmHg (35-46) *H Arterial Blood pO2 at Patient Temp 98 mmHg (65-108) Arterial Blood HCO3 34 mmol/L (21-28) H Arterial Blood Base Excess 7 mmol/L (-3-3) H FiO2 65 Test 06/21/19 02:35 06/21/19 04:30 06/21/19 08:25 Vancomycin Level Trough 5.4 mcg/mL (10.0-20.0) L Vancomycin Last Dose Date 06/20/19 Vancomycin Last Dose Time 0300 White Blood Count 11.8 x10^3/uL (4.0-11.0) H Red Blood Count 2.84 x10^6/uL (4.30-5.70) L Hemoglobin 6.9 g/dL (13.0-17.5) *L Hematocrit 23.1 % (39.0-53.0) L Mean Corpuscular Volume 81 fL (79-100) Mean Corpuscular Hemoglobin 25 pg (25-35) Mean Corpuscular Hemoglobin Concent 30 g/dL (31-37) L Red Cell Distribution Width 20.2 % (11.5-14.5) H Platelet Count 183 x10^3/uL (140-400) Neutrophils (%) (Auto) 96 % (31-73) H Lymphocytes (%) (Auto) 2 % (24-48) L Monocytes (%) (Auto) 2 % (0-9) Eosinophils (%) (Auto) 0 % (0-3) Basophils (%) (Auto) 0 % (0-3) Neutrophils # (Auto) 11.3 x10^3/uL (1.8-7.7) H Lymphocytes # (Auto) 0.2 x10^3/uL (1.0-4.8) L Monocytes # (Auto) 0.2 x10^3/uL (0.0-1.1) Eosinophils # (Auto) 0.0 x10^3/uL (0.0-0.7) Basophils # (Auto) 0.0 x10^3/uL (0.0-0.2) Sodium Level 148 mmol/L (136-145) H Potassium Level 4.2 mmol/L (3.5-5.1) Chloride Level 108 mmol/L (98-107) H Carbon Dioxide Level 38 mmol/L (21-32) H Anion Gap 2 (6-14) L Blood Urea Nitrogen 16 mg/dL (8-26) Creatinine 1.0 mg/dL (0.7-1.3) Estimated GFR (Cockcroft-Gault) 85.9 Glucose Level 187 mg/dL (70-99) H Calcium Level 9.2 mg/dL (8.5-10.1) Glucose (Fingerstick) 155 mg/dL (70-99) H Laboratory Tests 06/21/19 04:30 Laboratory Tests 06/21/19 04:30 ASSESSMENT/PLAN ASSESSMENT/PLAN 1. HCAP with GNR: ID and pulmonary following 2. AECOPD 3. Diastolic CHF: induced by above with protein malnutrition and post transfusion. Dyspnea mainly from COPD/PNA 4. Hx of PAFIB: hence amiodarone. Maintaining SR. 5. HTN: controlled 6. HLP 7. 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 No arrhythmias so far. 8. Recent PE: from 2 months ago: placed on eliquis. Defer to pulmonary 9. Normocytic anemia: Hgb trend down at 6.9 10. LE edema with protein malnutrition: Emaciated. Recommendations 1. Continue antibiotics as directed 2. Continue current bumex TTE today 3. Continue with coreg per BP trend. 4. Anticoagulation on hold currently with anemia. defer to PCP. 5. Continue with amiodarone and will check TSH. 6. Defer reevaluation of amiodarone use with Dr. Velazquez, cardiology whom he follows. Supportive care KIM RAMOS APRN Jun 21, 2019 11:18
--- NOTE | 2019-06-21 13:27 | CARD ---
MR#: [id number] Date of Study: 06/21/2019 Ordering Physician: RON CARBALLO, Referring Physician: RON CARBALLO, Tech: Jumana Maldonado APPROVED REPORT EXAM: Two-dimensional and M-mode echocardiogram with Doppler and color Doppler. Other Information Quality : AverageHR: 96bpm INDICATION Congestive Heart Failure 2D DIMENSIONS RVDd2.5 (2.9-3.5cm)Left Atrium(2D)1.7 (1.6-4.0cm) IVSd0.9 (0.7-1.1cm)Aortic Root(2D)3.7 (2.0-3.7cm) LVDd4.2 (3.9-5.9cm)LVOT Diameter1.9 (1.8-2.4cm) PWd1.0 (0.7-1.1cm)LVDs3.2 (2.5-4.0cm) FS (%) 23.9 %SV37.0 ml LVEF(%)48.1 (>50%) Aortic Valve AoV Peak Florentin.96.8cm/sAoV VTI15.0cm AO Peak GR.3.8mmHgLVOT VTI 11.93cm AO Mean GR.2mmHgAI P 1/2 [id number] Mitral Valve MV E Koiojhtw50.4cm/sMV A Orhqcign52.4cm/s E/A Ratio0.6 TDI Lateral E' P. V4.44cm/sMedial E' P. V5.28cm/s E/Lateral E'11.6E/Medial E'9.7 Tricuspid Valve TR P. [id number]/sRAP [id number] TR Peak Gr.66slVzNXVX82whUh Pulmonary Vein S1 Tlheubwq13.8cm/sS2 Nvxrknhg98.27cm/s D2 Icqqzpdm69.3cm/sPVa [id number] LEFT VENTRICLE The left ventricle is normal size. There is borderline concentric left ventricular hypertrophy. The l eft ventricular systolic function is normal. The Ejection Fraction is 50-55%. There is normal LV segm ental wall motion. Transmitral Doppler flow pattern is Grade I-abnormal relaxation pattern. RIGHT VENTRICLE The right ventricle is mildly dilated. There is normal right ventricular wall thickness. The right ve ntricular systolic function is normal. ATRIA The left atrium size is normal. The right atrium size is normal. The interatrial septum is intact wit h no evidence for an atrial septal defect or patent foramen ovale as noted on 2-D or Doppler imaging. AORTIC VALVE The aortic valve is thickened but opens well. Doppler and Color Flow revealed mild aortic regurgitati on. There is no significant aortic valvular stenosis. MITRAL VALVE The mitral valve is normal in structure and function. There is no evidence of mitral valve prolapse. There is no mitral valve stenosis. Doppler and Color Flow revealed no mitral valve regurgitation note d. TRICUSPID VALVE The tricuspid valve is normal in structure and function. Doppler and Color Flow revealed trace tricus pid regurgitation with an estimated PAP of 61 mmHg. There is moderate pulmonary hypertension. There i s no tricuspid valve stenosis. PULMONIC VALVE The pulmonic valve is not well visualized. Doppler and Color Flow revealed mild pulmonic valvular reg urgitation. GREAT VESSELS The aortic root is borderline enlarged. The ascending aorta is normal in size. The IVC is normal in s ize and collapses >50% with inspiration. PERICARDIAL EFFUSION There is no evidence of significant pericardial effusion. Critical Notification Critical Value: No <Conclusion> The left ventricular systolic function is normal. The Ejection Fraction is 50-55%. There is normal LV segmental wall motion. Transmitral Doppler flow pattern is Grade I-abnormal relaxation pattern. Mild aortic regurgitation. Trace tricuspid regurgitation with an estimated PAP of 61 mmHg. There is moderate pulmonary hypertension. There is no evidence of significant pericardial effusion. Signed by : Simón Klein, Electronically Approved : 06/21/2019 13:27:24
--- NOTE | 2019-06-21 16:31 | PDOC2 ---
PALLIATIVE CARE Palliative Care Note Palliative Care Patient sitting up in chair. Less respiratory distress today. Spoke with Moris/son. Plan family meeting tomorrow at 1800. ASHLEY FUENTES Jun 21, 2019 16:31
[2019-06-21] MEDS: ATORVASTATIN CALCIUM 10 MG TABLET. PO SCH (21:29)
[2019-06-22] VITALS (23 sets, daily range): BP systolic 98–128; BP diastolic 60–75
[2019-06-22 05:34] LABS: BASO % 0 % (0-3); EOS % 0 % (0-3); HEMATOCRIT 27.2 % (39.0-53.0); HEMOGLOBIN 8.6 g/dL (13.0-17.5); LYMPH # 0.2 x10^3/uL (1.0-4.8); LYMPH % 2 % (24-48); MEAN CORPUSCULAR HEMOGLOBIN 26 pg (25-35); MEAN CORPUSCULAR HGB CONC 32 g/dL (31-37); MEAN CORPUSCULAR VOLUME 82 fL (79-100); MONO # 0.4 x10^3/uL (0.0-1.1); MONO % 3 % (0-9); NEUT # 12.6 x10^3/uL (1.8-7.7); NEUT % 95 % (31-73); PLATELET COUNT 165 x10^3/uL (140-400); RED BLOOD COUNT 3.32 x10^6/uL (4.30-5.70); RED CELL DISTRIBUTION WIDTH 19.2 % (11.5-14.5); WHITE BLOOD COUNT 13.3 x10^3/uL (4.0-11.0)
[2019-06-22 05:50] LABS: CALCIUM 9.2 mg/dL (8.5-10.1); GFR 85.9; POTASSIUM 4.1 mmol/L (3.5-5.1)
[2019-06-22] MEDS: MEROPENEM 500 MG in IV NORMAL SALINE 50ML 50 ML IV SCH ×3 (06:04→17:33)
[2019-06-22] MEDS: methylPREDNISolone SOD SUCC PF 40 MG/ML VIAL. IV SCH ×3 (06:04→22:35)
--- NOTE | 2019-06-22 07:00 | PDOC ---
Infectious Disease Note Subjective Subjective More comfortable. Still cough. Occ SOA. No blood + Flatus but no BM No F/C/D/N/itch ROS ROS o/w neg Vital Sign Vital Signs Vital Signs Date Time Temp Pulse Resp B/P (MAP) Pulse Ox O2 Delivery O2 Flow Rate FiO2 06/22/19 06:00 87 20 121/75 (90) 94 Nasal Cannula 4.0 06/22/19 04:00 98.3 98.3 Physical Exam PHYSICAL EXAM CONSTITUTIONAL: He is alert.. He is not in any acute distress.Coop - looks better HEENT: He has normal conjunctivae. Oral cavity, oropharynx was dry. NECK: Without JVD. LUNGS: mild right rhonchi HEART: S1, S2. ABDOMEN: Soft, no guarding, no rebound. EXTREMITIES: Thin. No clubbing, cyanosis. SKIN: Warm to touch without signs of rash. NEUROLOGIC: He is nonfocal, answered questions. PSYCHIATRIC: Affect appropriate Labs Lab Laboratory Tests Test 06/21/19 08:25 06/21/19 12:19 06/21/19 17:26 06/21/19 21:40 Glucose (Fingerstick) 155 mg/dL (70-99) 192 mg/dL (70-99) 196 mg/dL (70-99) 245 mg/dL (70-99) Test 06/22/19 05:07 White Blood Count 13.3 x10^3/uL (4.0-11.0) Red Blood Count 3.32 x10^6/uL (4.30-5.70) Hemoglobin 8.6 g/dL (13.0-17.5) Hematocrit 27.2 % (39.0-53.0) Mean Corpuscular Volume 82 fL (79-100) Mean Corpuscular Hemoglobin 26 pg (25-35) Mean Corpuscular Hemoglobin Concent 32 g/dL (31-37) Red Cell Distribution Width 19.2 % (11.5-14.5) Platelet Count 165 x10^3/uL (140-400) Neutrophils (%) (Auto) 95 % (31-73) Lymphocytes (%) (Auto) 2 % (24-48) Monocytes (%) (Auto) 3 % (0-9) Eosinophils (%) (Auto) 0 % (0-3) Basophils (%) (Auto) 0 % (0-3) Neutrophils # (Auto) 12.6 x10^3/uL (1.8-7.7) Lymphocytes # (Auto) 0.2 x10^3/uL (1.0-4.8) Monocytes # (Auto) 0.4 x10^3/uL (0.0-1.1) Eosinophils # (Auto) 0.0 x10^3/uL (0.0-0.7) Basophils # (Auto) 0.0 x10^3/uL (0.0-0.2) Sodium Level 146 mmol/L (136-145) Potassium Level 4.1 mmol/L (3.5-5.1) Chloride Level 104 mmol/L (98-107) Carbon Dioxide Level 42 mmol/L (21-32) Anion Gap 0 (6-14) Blood Urea Nitrogen 23 mg/dL (8-26) Creatinine 1.0 mg/dL (0.7-1.3) Estimated GFR (Cockcroft-Gault) 85.9 Glucose Level 244 mg/dL (70-99) Calcium Level 9.2 mg/dL (8.5-10.1) Micro Microbiology 06/19/19 Blood Culture - Preliminary, Resulted NO GROWTH AFTER 1 DAY Objective Assessment GNR sepsis - POA 06/19 ID pending Acute hypoxic resp failure - U/S - neg for DVT - improved this am - on Bipap overnight Pneumonia cannot r/o ? Lung abscess Leukocytosis - S/p steroid/PRBCs Anemia - PRBCs 06/21 DM Arrhythmias Plan Plan of Care Cont Meropenem to cover potential rest bacteria states he thinks he had been on abx at home Cont Micafungin with abx exposure and risk for yeast in lung with ? abscess F/u labs and cults May need f/u imaging D/w nursing NEIL ORELLANA MD Jun 22, 2019 07:00
[2019-06-22] MEDS: BUMETANIDE 1 MG/4 ML VIAL. IV SCH ×2 (08:13→14:08)
[2019-06-22] MEDS: FERROUS SULFATE ORAL 300 MG/5 ML SOLUTION. PO SCH ×2 (08:13→17:31)
[2019-06-22] MEDS: LACTOBACILLUS RHAMNOSUS GG 1 CAPSULE. PO SCH ×2 (08:14→20:31)
[2019-06-22] MEDS: CARVEDILOL 3.125 MG TABLET. PO SCH ×2 (08:14→17:31)
[2019-06-22] MEDS: TAMSULOSIN 0.4 MG CAP.ER.24H. PO SCH (08:14)
[2019-06-22] MEDS: ASPIRIN CHEWABLE 81 MG TABLET. PO SCH (08:14)
[2019-06-22] MEDS: LINAGLIPTIN 5 MG TABLET PO SCH (08:14)
[2019-06-22] MEDS: AMIODARONE HCL 200 MG TABLET. PO SCH (08:15)
[2019-06-22] MEDS: INSULIN LISPRO 300 UNITS/3 ML VIAL. SQ SCH ×3 (08:17→17:39)
[2019-06-22] MEDS: ENOXAPARIN 40 MG/0.4 ML SYRINGE. SQ SCH ×2 (08:20→20:31)
[2019-06-22] MEDS: IPRATRPIUM/ALBUTEROL 0.5/2.5MG 3 ML NEBU. NEB SCH ×4 (08:31→19:43)
--- NOTE | 2019-06-22 09:33 | PDOC ---
PULMONARY PROGRESS NOTES Subjective PT FEELS BETTER DOES NOT LIKE BIPAP COUGH AT TIMES PRODUCTIVE PT NOT MORE SOA NOW OFF BIPAP ON 02 Vitals Vital Signs Date Time Temp Pulse Resp B/P (MAP) Pulse Ox O2 Delivery O2 Flow Rate FiO2 06/22/19 09:00 97.6 105 26 105/69 (81) 89 Nasal Cannula 6.0 97.6 ROS: No Nausea, No Chest Pain, No Abdominal Pain, No Increase Cough General: Alert Lungs: Crackles Cardiovascular: S1, S2 Abdomen: Soft Neuro Exam: Alert Extremities: No Edema Skin: Warm Labs Laboratory Tests Test 06/20/19 11:37 06/20/19 12:15 06/20/19 17:43 06/20/19 20:35 Glucose (Fingerstick) 140 mg/dL (70-99) 153 mg/dL (70-99) 131 mg/dL (70-99) O2 Saturation 97 % (92-99) Arterial Blood pH 7.36 (7.35-7.45) Arterial Blood pCO2 at Patient Temp 61 mmHg (35-46) Arterial Blood pO2 at Patient Temp 98 mmHg (65-108) Arterial Blood HCO3 34 mmol/L (21-28) Arterial Blood Base Excess 7 mmol/L (-3-3) FiO2 65 Test 06/21/19 02:35 06/21/19 04:30 06/21/19 08:25 06/21/19 12:19 Vancomycin Level Trough 5.4 mcg/mL (10.0-20.0) Vancomycin Last Dose Date 06/20/19 Vancomycin Last Dose Time 0300 White Blood Count 11.8 x10^3/uL (4.0-11.0) Red Blood Count 2.84 x10^6/uL (4.30-5.70) Hemoglobin 6.9 g/dL (13.0-17.5) Hematocrit 23.1 % (39.0-53.0) Mean Corpuscular Volume 81 fL (79-100) Mean Corpuscular Hemoglobin 25 pg (25-35) Mean Corpuscular Hemoglobin Concent 30 g/dL (31-37) Red Cell Distribution Width 20.2 % (11.5-14.5) Platelet Count 183 x10^3/uL (140-400) Neutrophils (%) (Auto) 96 % (31-73) Lymphocytes (%) (Auto) 2 % (24-48) Monocytes (%) (Auto) 2 % (0-9) Eosinophils (%) (Auto) 0 % (0-3) Basophils (%) (Auto) 0 % (0-3) Neutrophils # (Auto) 11.3 x10^3/uL (1.8-7.7) Lymphocytes # (Auto) 0.2 x10^3/uL (1.0-4.8) Monocytes # (Auto) 0.2 x10^3/uL (0.0-1.1) Eosinophils # (Auto) 0.0 x10^3/uL (0.0-0.7) Basophils # (Auto) 0.0 x10^3/uL (0.0-0.2) Sodium Level 148 mmol/L (136-145) Potassium Level 4.2 mmol/L (3.5-5.1) Chloride Level 108 mmol/L (98-107) Carbon Dioxide Level 38 mmol/L (21-32) Anion Gap 2 (6-14) Blood Urea Nitrogen 16 mg/dL (8-26) Creatinine 1.0 mg/dL (0.7-1.3) Estimated GFR (Cockcroft-Gault) 85.9 Glucose Level 187 mg/dL (70-99) Calcium Level 9.2 mg/dL (8.5-10.1) BQ-Soz-J-Type Natriuretic Peptide 4319 pg/mL (0-449) Thyroid Stimulating Hormone (TSH) 0.824 uIU/mL (0.358-3.74) Glucose (Fingerstick) 155 mg/dL (70-99) 192 mg/dL (70-99) Test 06/21/19 17:26 06/21/19 21:40 06/22/19 05:07 Glucose (Fingerstick) 196 mg/dL (70-99) 245 mg/dL (70-99) White Blood Count 13.3 x10^3/uL (4.0-11.0) Red Blood Count 3.32 x10^6/uL (4.30-5.70) Hemoglobin 8.6 g/dL (13.0-17.5) Hematocrit 27.2 % (39.0-53.0) Mean Corpuscular Volume 82 fL (79-100) Mean Corpuscular Hemoglobin 26 pg (25-35) Mean Corpuscular Hemoglobin Concent 32 g/dL (31-37) Red Cell Distribution Width 19.2 % (11.5-14.5) Platelet Count 165 x10^3/uL (140-400) Neutrophils (%) (Auto) 95 % (31-73) Lymphocytes (%) (Auto) 2 % (24-48) Monocytes (%) (Auto) 3 % (0-9) Eosinophils (%) (Auto) 0 % (0-3) Basophils (%) (Auto) 0 % (0-3) Neutrophils # (Auto) 12.6 x10^3/uL (1.8-7.7) Lymphocytes # (Auto) 0.2 x10^3/uL (1.0-4.8) Monocytes # (Auto) 0.4 x10^3/uL (0.0-1.1) Eosinophils # (Auto) 0.0 x10^3/uL (0.0-0.7) Basophils # (Auto) 0.0 x10^3/uL (0.0-0.2) Sodium Level 146 mmol/L (136-145) Potassium Level 4.1 mmol/L (3.5-5.1) Chloride Level 104 mmol/L (98-107) Carbon Dioxide Level 42 mmol/L (21-32) Anion Gap 0 (6-14) Blood Urea Nitrogen 23 mg/dL (8-26) Creatinine 1.0 mg/dL (0.7-1.3) Estimated GFR (Cockcroft-Gault) 85.9 Glucose Level 244 mg/dL (70-99) Calcium Level 9.2 mg/dL (8.5-10.1) Laboratory Tests Test 06/21/19 12:19 06/21/19 17:26 06/21/19 21:40 06/22/19 05:07 Glucose (Fingerstick) 192 mg/dL (70-99) 196 mg/dL (70-99) 245 mg/dL (70-99) White Blood Count 13.3 x10^3/uL (4.0-11.0) Red Blood Count 3.32 x10^6/uL (4.30-5.70) Hemoglobin 8.6 g/dL (13.0-17.5) Hematocrit 27.2 % (39.0-53.0) Mean Corpuscular Volume 82 fL (79-100) Mean Corpuscular Hemoglobin 26 pg (25-35) Mean Corpuscular Hemoglobin Concent 32 g/dL (31-37) Red Cell Distribution Width 19.2 % (11.5-14.5) Platelet Count 165 x10^3/uL (140-400) Neutrophils (%) (Auto) 95 % (31-73) Lymphocytes (%) (Auto) 2 % (24-48) Monocytes (%) (Auto) 3 % (0-9) Eosinophils (%) (Auto) 0 % (0-3) Basophils (%) (Auto) 0 % (0-3) Neutrophils # (Auto) 12.6 x10^3/uL (1.8-7.7) Lymphocytes # (Auto) 0.2 x10^3/uL (1.0-4.8) Monocytes # (Auto) 0.4 x10^3/uL (0.0-1.1) Eosinophils # (Auto) 0.0 x10^3/uL (0.0-0.7) Basophils # (Auto) 0.0 x10^3/uL (0.0-0.2) Sodium Level 146 mmol/L (136-145) Potassium Level 4.1 mmol/L (3.5-5.1) Chloride Level 104 mmol/L (98-107) Carbon Dioxide Level 42 mmol/L (21-32) Anion Gap 0 (6-14) Blood Urea Nitrogen 23 mg/dL (8-26) Creatinine 1.0 mg/dL (0.7-1.3) Estimated GFR (Cockcroft-Gault) 85.9 Glucose Level 244 mg/dL (70-99) Calcium Level 9.2 mg/dL (8.5-10.1) Medications Active Scripts Medications Dose Route/Sig Max Daily Dose Days Date Category Torsemide 20 Mg Tablet 5 Mg PO DAILY 06/19/19 Reported Flomax (Tamsulosin Hcl) 0.4 Mg Cap.er.24h 0.8 Mg PO DAILY 06/19/19 Reported Stiolto Respimat Inhal [place] (Tiotropium Br/Olodaterol HCl) 4 Gm Mist.inhal 4 Gm IH DAILY 06/19/19 Reported Januvia (Sitagliptin Phosphate) 100 Mg Tablet 1 Tab PO DAILY 06/19/19 Reported Senokot-S Tablet (Sennosides/Docusate Sodium) 1 Each Tablet 2 Tab PO PRN BID 06/19/19 Reported Magnesium 300 Mg Capsule (Magnesium Oxide/Mag Aa Chelate) 300 Mg Capsule 400 Mg PO DAILY 06/19/19 Reported Lovenox (Enoxaparin Sodium) 60 Mg/0.6 Ml Disp.syrin 60 Mg SQ BID 06/19/19 Reported Lovastatin 20 Mg Tablet 20 Mg PO HS 06/19/19 Reported Mucinex (Guaifenesin) 600 Mg Tablet.er 600 Mg PO BID 06/19/19 Reported Prednisone 50 Mg Tablet 10 Mg PO DAILY 06/19/19 Reported Carvedilol 25 Mg Tablet 3.125 Mg PO BIDWMEALS 06/19/19 Reported Children's Aspirin (Aspirin) 81 Mg Tab.chew 81 Mg PO DAILY 06/19/19 Reported Amiodarone Hcl 200 Mg Tablet 200 Mg PO DAILY 06/19/[address] CHEST IMPRESSION: 1. Mediastinal lymphadenopathy may be reactive or metastatic. 2. Large area of consolidations involving the right middle lobe and right lower lobe with air bronchograms. Differential diagnoses includes aspiration or pneumonia. Underlying lung malignancy is not ruled out. Follow-up imaging recommended after medical therapy to ensure resolution. 3. Loculated trace amount of right lower lobe pleural effusion likely parapneumonic effusion. 4. Few nodular opacities in the dependent portion of the left lower lobe likely infectious or aspiration 5. Moderate diffuse emphysema. Electronically signed by: Sha Batista DO (06/19/2019 10:28 AM) [facility] Impression . 1. Acute on chronic hypoxic respiratory failure secondary to extensive HCAP involving the right lung. SUPSPECT GRAM POS/ NEGATIVE 2. Per records from [facility], h/o Left lung cancer , treated with XRT/ Chemo at , ct chest with residual para-aortic SHERYL residual density 3. Moderate protein-calorie malnutrition. 4. Long history of tobacco use, suspect severe chronic obstructive pulmonary disease. 5. Mild hypernatremia. 6. Recent h/o pulmonary embolism at , will get records from , on lovenox. 7. SEVERE MALNUTRITION POA 8. ACUTE BLOOD LOSS ANEMIA S/P TRANSFUSION 9. VENOUS DOPPLER OF LOWER EXR NEGATIVE 10. POSSIBLE LUNG ABSCESS Plan . MONITOR H/H PRN BIPAP ANITBX PER ID PT/OT NUTRITION SUPPORT CCT 30 MINUTES REVIEWING DATA/ XRAYS/ D/W /RN AND FORMULATION A PLAN GRETCHEN PAULSON MD Jun 22, 2019 09:33
--- NOTE | 2019-06-22 10:26 | PDOC ---
PROGRESS NOTES Subjective Subjective still sob Objective Objective Vital Signs Date Time Temp Pulse Resp B/P (MAP) Pulse Ox O2 Delivery O2 Flow Rate FiO2 06/22/19 09:00 97.6 105 26 105/69 (81) 89 Nasal Cannula 6.0 97.6 Intake and Output 06/22/19 07:00 Intake Total 1684 ml Output Total 2575 ml Balance -891 ml Intake Oral 554 ml IV Total 250 ml Blood Product IV Normal Saline Flush 880 ml Output Urine Total 2575 ml Physical Exam Abdomen: Soft, No tenderness Heart: Regular rate (SR), Other (distant heart sounds) Extremities: No cyanosis, Other (3+ bilateral LE pitting edema) General: Alert, Oriented X3, Cooperative, mild distress, Other (emaciated) HEENT: Atraumatic, Mucous membr. moist/pink Lungs: Other (diminisehd, basilar crackles) MUSCULOSKELETAL: Osteoarthritic changes both hands Neck: Supple Neuro: Normal speech, Sensation intact Psych/Mental Status: Mental status NL, Mood NL Skin: No breakdown Assessment Assessment FINAL IMPRESSION: Gram neg bacteremia. 1. Health care associated pneumonia.. 2. Chronic obstructive pulmonary disease. 3. Acute hypoxic respiratory failure, requiring BiPAP. 4. History of cardiac arrhythmias, on amiodarone. 5. History of hypertension. 6. Diabetes. 7. Hyperlipidemia. 8. Benign prostatic hypertrophy. 9.Lung cancer had radiation and chemo at 10.Recent PE on Lovenox PLAN:family meeting today. HB 8,6 after transfusion 1 u prbc. resume lovenox,bid for PE. blood c/s positive for gram neg bactermia. Echo good lvf ,pul htn. IV antibiotics for pneumonia. spoke with pts son at bedside, he was in and out of hospitals with recent Pneumonias.at least 5-6 times d/c from [facility] with lovenox bid shots. spoke with pulmoanry, reviewed records from . spoke with ID poor prognosis. Palliative team consult.,No intubation At this time, was admit to hospital after blood cultures, sputum and broad-spectrum antibiotics, Zosyn and vancomycin. Pulmonary is consulted and breathing treatments. Was given Solu-Medrol 1 dose and we will check for sputum and blood cultures. CT scan of the chest was ordered and see how the patient can respond and DVT prophylaxis. Comment Review of Relevant I have reviewed the following items татьяна (where applicable) has been applied. Labs Laboratory Tests Test 06/21/19 12:19 06/21/19 17:26 06/21/19 21:40 06/22/19 05:07 Glucose (Fingerstick) 192 mg/dL (70-99) 196 mg/dL (70-99) 245 mg/dL (70-99) White Blood Count 13.3 x10^3/uL (4.0-11.0) Red Blood Count 3.32 x10^6/uL (4.30-5.70) Hemoglobin 8.6 g/dL (13.0-17.5) Hematocrit 27.2 % (39.0-53.0) Mean Corpuscular Volume 82 fL (79-100) Mean Corpuscular Hemoglobin 26 pg (25-35) Mean Corpuscular Hemoglobin Concent 32 g/dL (31-37) Red Cell Distribution Width 19.2 % (11.5-14.5) Platelet Count 165 x10^3/uL (140-400) Neutrophils (%) (Auto) 95 % (31-73) Lymphocytes (%) (Auto) 2 % (24-48) Monocytes (%) (Auto) 3 % (0-9) Eosinophils (%) (Auto) 0 % (0-3) Basophils (%) (Auto) 0 % (0-3) Neutrophils # (Auto) 12.6 x10^3/uL (1.8-7.7) Lymphocytes # (Auto) 0.2 x10^3/uL (1.0-4.8) Monocytes # (Auto) 0.4 x10^3/uL (0.0-1.1) Eosinophils # (Auto) 0.0 x10^3/uL (0.0-0.7) Basophils # (Auto) 0.0 x10^3/uL (0.0-0.2) Sodium Level 146 mmol/L (136-145) Potassium Level 4.1 mmol/L (3.5-5.1) Chloride Level 104 mmol/L (98-107) Carbon Dioxide Level 42 mmol/L (21-32) Anion Gap 0 (6-14) Blood Urea Nitrogen 23 mg/dL (8-26) Creatinine 1.0 mg/dL (0.7-1.3) Estimated GFR (Cockcroft-Gault) 85.9 Glucose Level 244 mg/dL (70-99) Calcium Level 9.2 mg/dL (8.5-10.1) Microbiology 06/19/19 - Final, Resulted 06/19/19 - Final, Resulted 06/19/19 - Final, Resulted 06/19/19 Gram Stain Evaluation - Final, Resulted 06/19/19 Sputum Culture, Resulted Pending 06/19/19 Blood Culture - Preliminary, Resulted NO GROWTH AFTER 3 DAYS Medications Current Medications Furosemide (Lasix) 20 mg 1X ONCE IVP Last administered on 06/21/19at 12:16; Start 06/21/19 at 11:15; Stop 06/21/19 at 11:16; Status DC Methylprednisolone Sodium Succinate (SOLU-Medrol 40MG VIAL) 30 mg Q8HRS IV Last administered on 06/22/19at 06:04; Start 06/21/19 at 12:45 Vitals/I & O Vital Sign - Last 24 Hours 06/21/19 06/21/19 06/21/19 06/21/19 12:00 12:00 12:22 12:56 Temp 97.8 97.8 Pulse 89 Resp 16 B/P (MAP) 99/62 (74) Pulse Ox 97 96 O2 Delivery Nasal Cannula Nasal Cannula Nasal Cannula O2 Flow Rate 5.0 5.0 6.0 5.0 06/21/19 06/21/19 06/21/19 06/21/19 13:00 14:00 15:00 16:00 Pulse 102 82 90 Resp 25 24 17 B/P (MAP) 125/67 (86) 107/72 (84) 116/67 (83) Pulse Ox 100 95 94 O2 Delivery Nasal Cannula Nasal Cannula Nasal Cannula Nasal Cannula O2 Flow Rate 5.0 5.0 5.0 5.0 06/21/19 06/21/19 06/21/19 06/21/19 16:00 16:00 16:54 17:00 Temp 97.9 97.9 Pulse 90 88 Resp 14 15 B/P (MAP) 109/66 (80) 121/69 (86) Pulse Ox 96 98 100 O2 Delivery Nasal Cannula Nasal Cannula Nasal Cannula O2 Flow Rate 5.0 5.0 5.0 5.0 06/21/19 06/21/19 06/21/19 06/21/19 17:34 18:00 19:00 20:00 Temp 98.3 98.3 Pulse 100 95 92 86 Resp 19 20 18 B/P (MAP) 111/67 100/71 (81) 102/67 (79) 109/71 (84) Pulse Ox 100 96 96 O2 Delivery Nasal Cannula Nasal Cannula Nasal Cannula O2 Flow Rate 5.0 5.0 5.0 06/21/19 06/21/19 06/21/19 06/21/19 20:00 20:03 21:00 22:00 Pulse 90 81 Resp 20 18 B/P (MAP) 84/61 (69) 106/68 (81) Pulse Ox 95 96 96 O2 Delivery Nasal Cannula Nasal Cannula Nasal Cannula Nasal Cannula O2 Flow Rate 5.0 5.0 5.0 5.0 06/21/19 06/21/19 06/21/19 06/21/19 23:00 23:40 23:59 23:59 Temp 98.5 98.5 Pulse 83 80 Resp 14 20 B/P (MAP) 102/59 (73) 99/63 (75) Pulse Ox 95 91 95 O2 Delivery Nasal Cannula BiPAP/CPAP Bi-pap BiPAP/CPAP O2 Flow Rate 5.0 06/22/19 06/22/19 06/22/19 06/22/19 01:00 01:34 02:00 03:00 Pulse 78 75 82 Resp 16 16 20 B/P (MAP) 102/61 (75) 109/60 (76) 108/68 (81) Pulse Ox 94 95 94 94 O2 Delivery BiPAP/CPAP BiPAP/CPAP BiPAP/CPAP BiPAP/CPAP 06/22/19 06/22/19 06/22/19 06/22/19 04:00 04:00 04:04 05:00 Temp 98.3 98.3 Pulse 98 88 Resp 22 22 B/P (MAP) 109/67 (81) 107/67 (80) Pulse Ox 99 96 92 O2 Delivery Nasal Cannula Nasal Cannula BiPAP/CPAP Nasal Cannula O2 Flow Rate 4.0 4.0 4.0 06/22/19 06/22/19 06/22/19 06/22/19 06:00 07:00 08:00 08:00 Pulse 87 93 99 Resp 20 22 28 B/P (MAP) 121/75 (90) 111/67 (82) 111/65 (80) Pulse Ox 94 95 96 O2 Delivery Nasal Cannula Nasal Cannula Nasal Cannula Nasal Cannula O2 Flow Rate 4.0 4.0 4.0 4.0 06/22/19 06/22/19 06/22/19 06/22/19 08:14 08:15 08:33 09:00 Temp 97.6 97.6 Pulse 99 99 105 Resp 26 B/P (MAP) 111/65 111/65 105/69 (81) Pulse Ox 96 89 O2 Delivery Nasal Cannula Nasal Cannula O2 Flow Rate 4.0 6.0 Intake and Output 06/21/19 06/21/19 06/22/19 15:00 23:00 07:00 Intake Total 1266 ml 368 ml 50 ml Output Total 1275 ml 950 ml 350 ml Balance -9 ml -582 ml -300 ml Nutrition Consultation Dietary Evaluation: Recommendations by RD: Increase Calorie Intake, Protein supplementation Comments: Continue w/dysphagia II ADA/cardiac diet w/thin liquid diet REC Glucerna BID Expected Outcomes/Goals: PO intake to meet >75% est needs Malnutrition Findings: Body Fat Depletion (Non Severe: Mild Depletion Weight Status: Underweight RON CARBALLO MD Jun 22, 2019 10:26
[2019-06-22] MEDS: MICAFUNGIN 100 MG in IV DEXTROSE 5% 100ML 100 ML IV SCH (10:58)
--- NOTE | 2019-06-22 12:48 | PDOC ---
TEDDY SHI CASING TESTER 06/22/19 1248: CARDIO Progress Notes Date and Time Date of Service 06/22/19 Time of Evaluation 1110 Subjective Subjective: No Chest Pain, No Palpitations, Other (beathing better) Vitals Vitals Vital Signs Date Time Temp Pulse Resp B/P (MAP) Pulse Ox O2 Delivery O2 Flow Rate FiO2 06/22/19 12:36 99 Nasal Cannula 4.0 06/22/19 09:00 97.6 105 26 105/69 (81) 97.6 Weight Weight [ ] Input and Output Intake and Output Intake and Output 06/22/19 07:02 Intake Total 1684 ml Output Total 2575 ml Balance -891 ml Intake Oral 554 ml IV Total 250 ml Blood Product IV Normal Saline Flush 880 ml Output Urine Total 2575 ml Laboratory Labs Laboratory Tests Test 06/21/19 17:26 06/21/19 21:40 06/22/19 05:07 Glucose (Fingerstick) 196 mg/dL (70-99) 245 mg/dL (70-99) White Blood Count 13.3 x10^3/uL (4.0-11.0) Red Blood Count 3.32 x10^6/uL (4.30-5.70) Hemoglobin 8.6 g/dL (13.0-17.5) Hematocrit 27.2 % (39.0-53.0) Mean Corpuscular Volume 82 fL (79-100) Mean Corpuscular Hemoglobin 26 pg (25-35) Mean Corpuscular Hemoglobin Concent 32 g/dL (31-37) Red Cell Distribution Width 19.2 % (11.5-14.5) Platelet Count 165 x10^3/uL (140-400) Neutrophils (%) (Auto) 95 % (31-73) Lymphocytes (%) (Auto) 2 % (24-48) Monocytes (%) (Auto) 3 % (0-9) Eosinophils (%) (Auto) 0 % (0-3) Basophils (%) (Auto) 0 % (0-3) Neutrophils # (Auto) 12.6 x10^3/uL (1.8-7.7) Lymphocytes # (Auto) 0.2 x10^3/uL (1.0-4.8) Monocytes # (Auto) 0.4 x10^3/uL (0.0-1.1) Eosinophils # (Auto) 0.0 x10^3/uL (0.0-0.7) Basophils # (Auto) 0.0 x10^3/uL (0.0-0.2) Sodium Level 146 mmol/L (136-145) Potassium Level 4.1 mmol/L (3.5-5.1) Chloride Level 104 mmol/L (98-107) Carbon Dioxide Level 42 mmol/L (21-32) Anion Gap 0 (6-14) Blood Urea Nitrogen 23 mg/dL (8-26) Creatinine 1.0 mg/dL (0.7-1.3) Estimated GFR (Cockcroft-Gault) 85.9 Glucose Level 244 mg/dL (70-99) Calcium Level 9.2 mg/dL (8.5-10.1) Microbiology Micro Microbiology 06/19/19 - Final, Resulted 06/19/19 - Final, Resulted 06/19/19 - Final, Resulted 06/19/19 Gram Stain Evaluation - Final, Resulted 06/19/19 Sputum Culture, Resulted Pending 06/19/19 Blood Culture - Preliminary, Resulted NO GROWTH AFTER 3 DAYS Physical Exam HEENT: Neck Supple W Full Motion Chest: Symmetric LUNGS: Other (diminished throughout ) Heart: S1S2, RRR Abdomen: Soft N/T Extremities: Other (trace bilateral LE edema ) Neurology: alert, oriented, follow commands Assessment Assessment 1. Acute respiratory failure with HCAP with GNR: ID and pulmonary following 2. AECOPD 3. Mild diastolic CHF: induced by above. Dyspnea mainly from COPD/PNA. Echo with preserved LV systolic function 4. PAFIB: Maintaining SR with Amiodarone 5. HTN: controlled 6. HLP; statin 7. 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 No arrhythmias so far. 8. Recent PE 9. Normocytic anemia: s/p 1 unit PRBCs. Eliquis on hold Recommendations Ongoing treatment of PNA Monitor H and H Supportive care Follow up with primary material chaser, Dr. Velazquez upon discharge DENISE LOPES MD 06/23/19 0900: CARDIO Progress Notes Assessment Assessment Patient seen and examined 06/22/19. Agree with WIRE BRUSHER's assessment and plan. Mild acute on chronic diastolic heart failure better compensated PAF maintaining sinus rhythm Continue current medical regimen and follow-up with primary material chaser upon discharge TEDDY SHI APRN Jun 22, 2019 12:48 DENISE LOPES MD Jun 23, 2019 09:00
--- NOTE | 2019-06-22 19:27 | PDOC2 ---
PALLIATIVE CARE Palliative Care Note Palliative Care Patient alert. Sitting up in chair. Visiting with family. Met with children; Moris Gallo, Daryl (per phone); Jseph and 2 granddaughter. Family is able to accurately provide medical information from their discussion with Dr. May Patient adamantly says "we don't need to discuss this because my family knows what I want" Patient has been in medical facility approx. 4-5 weeks out of the past 6 weeks. Moris shared that from his discussion with Dr. May that his illness has progressed. After discussion of options for care patient states he wants to continue with full aggressive care as long as there is a chance to live. He is consistent about not wanting intubation. Long discussion about risk of chest compressions without intubation to provide oxygen. Family acknowledged understanding and will continue to honor patient's wishes. Discussed discharge. [facility] may be an options to continue current aggressive care. Further care at SNU may be needed if patient is able to oxygenate will enough to participate in therapy. Plan: No intubation Continue aggressive care. ASHLEY FUENTES Jun 22, 2019 19:27
[2019-06-22] MEDS: ATORVASTATIN CALCIUM 10 MG TABLET. PO SCH (20:31)
[2019-06-23] VITALS (15 sets, daily range): BP systolic 97–125; BP diastolic 57–80
[2019-06-23] MEDS: MEROPENEM 500 MG in IV NORMAL SALINE 50ML 50 ML IV SCH ×4 (00:11→17:15)
[2019-06-23] MEDS: methylPREDNISolone SOD SUCC PF 40 MG/ML VIAL. IV SCH ×2 (05:34→17:59)
[2019-06-23 06:17] LABS: BASO % 0 % (0-3); EOS % 0 % (0-3); HEMATOCRIT 29.1 % (39.0-53.0); HEMOGLOBIN 9.1 g/dL (13.0-17.5); LYMPH # 0.1 x10^3/uL (1.0-4.8); LYMPH % 1 % (24-48); MEAN CORPUSCULAR HEMOGLOBIN 26 pg (25-35); MEAN CORPUSCULAR HGB CONC 31 g/dL (31-37); MEAN CORPUSCULAR VOLUME 82 fL (79-100); MONO # 0.3 x10^3/uL (0.0-1.1); MONO % 2 % (0-9); NEUT # 11.4 x10^3/uL (1.8-7.7); NEUT % 97 % (31-73); PLATELET COUNT 179 x10^3/uL (140-400); RED BLOOD COUNT 3.54 x10^6/uL (4.30-5.70); RED CELL DISTRIBUTION WIDTH 19.4 % (11.5-14.5); WHITE BLOOD COUNT 11.8 x10^3/uL (4.0-11.0)
[2019-06-23 06:37] LABS: BLOOD UREA NITROGEN 24 mg/dL (8-26); CALCIUM 9.2 mg/dL (8.5-10.1); CARBON DIOXIDE > 45 mmol/L (21-32); CHLORIDE 101 mmol/L (98-107); GFR 85.9; GLUCOSE 272 mg/dL (70-99); POTASSIUM 4.1 mmol/L (3.5-5.1); SODIUM 145 mmol/L (136-145)
--- NOTE | 2019-06-23 06:51 | PDOC ---
Infectious Disease Note Subjective Subjective More comfortable - better. Still cough but less. Occ SOA better. No blood + Flatus but no BM. urinating well No F/C/D/N/itch ROS ROS o/w neg Vital Sign Vital Signs Vital Signs Date Time Temp Pulse Resp B/P (MAP) Pulse Ox O2 Delivery O2 Flow Rate FiO2 06/23/19 06:00 73 16 125/75 (92) 99 Nasal Cannula 5.0 06/23/19 04:00 97.6 97.6 Physical Exam PHYSICAL EXAM CONSTITUTIONAL: He is alert.. He is not in any acute distress.Coop - looks even better HEENT: He has normal conjunctivae. Oral cavity, oropharynx was dry. NECK: Without JVD. LUNGS: CTA HEART: S1, S2. ABDOMEN: Soft, no guarding, no rebound. EXTREMITIES: Thin. No clubbing, cyanosis. SKIN: Warm to touch without signs of rash. NEUROLOGIC: He is nonfocal, answered questions. PSYCHIATRIC: Affect appropriate IV: clean Labs Lab Laboratory Tests Test 06/22/19 16:47 06/22/19 20:30 06/23/19 06:05 Glucose (Fingerstick) 353 mg/dL (70-99) 288 mg/dL (70-99) White Blood Count 11.8 x10^3/uL (4.0-11.0) Red Blood Count 3.54 x10^6/uL (4.30-5.70) Hemoglobin 9.1 g/dL (13.0-17.5) Hematocrit 29.1 % (39.0-53.0) Mean Corpuscular Volume 82 fL (79-100) Mean Corpuscular Hemoglobin 26 pg (25-35) Mean Corpuscular Hemoglobin Concent 31 g/dL (31-37) Red Cell Distribution Width 19.4 % (11.5-14.5) Platelet Count 179 x10^3/uL (140-400) Neutrophils (%) (Auto) 97 % (31-73) Lymphocytes (%) (Auto) 1 % (24-48) Monocytes (%) (Auto) 2 % (0-9) Eosinophils (%) (Auto) 0 % (0-3) Basophils (%) (Auto) 0 % (0-3) Neutrophils # (Auto) 11.4 x10^3/uL (1.8-7.7) Lymphocytes # (Auto) 0.1 x10^3/uL (1.0-4.8) Monocytes # (Auto) 0.3 x10^3/uL (0.0-1.1) Eosinophils # (Auto) 0.0 x10^3/uL (0.0-0.7) Basophils # (Auto) 0.0 x10^3/uL (0.0-0.2) Sodium Level 145 mmol/L (136-145) Potassium Level 4.1 mmol/L (3.5-5.1) Chloride Level 101 mmol/L (98-107) Carbon Dioxide Level > 45 mmol/L (21-32) Anion Gap (6-14) Blood Urea Nitrogen 24 mg/dL (8-26) Creatinine 1.0 mg/dL (0.7-1.3) Estimated GFR (Cockcroft-Gault) 85.9 Glucose Level 272 mg/dL (70-99) Calcium Level 9.2 mg/dL (8.5-10.1) Micro 06/19 BLD CULT RESULT 1 Preliminary [place] [employer] Microbiology 06/19/19 Blood Culture - Preliminary, Resulted NO GROWTH AFTER 1 DAY Objective Assessment [place] sepsis - POA 06/19 sensitivities pending Acute hypoxic resp failure - better- U/S - neg for DVT Pneumonia cannot r/o ? Lung abscess Leukocytosis - S/p steroid/PRBCs - better Anemia - PRBCs 06/21 DM Arrhythmias Plan Plan of Care Cont Meropenem to cover potential rest bacteria/anerobes Cont Micafungin with abx exposure and risk for yeast in lung with ? abscess F/u labs and cults - sens May need f/u imaging D/w nursing NEIL ORELLANA MD Jun 23, 2019 06:51
[2019-06-23] MEDS: IPRATRPIUM/ALBUTEROL 0.5/2.5MG 3 ML NEBU. NEB SCH ×4 (07:53→19:36)
[2019-06-23] MEDS: TAMSULOSIN 0.4 MG CAP.ER.24H. PO SCH (09:03)
[2019-06-23] MEDS: ENOXAPARIN 40 MG/0.4 ML SYRINGE. SQ SCH ×2 (09:03→19:58)
[2019-06-23] MEDS: ASPIRIN CHEWABLE 81 MG TABLET. PO SCH (09:03)
[2019-06-23] MEDS: LINAGLIPTIN 5 MG TABLET PO SCH (09:03)
[2019-06-23] MEDS: FERROUS SULFATE ORAL 300 MG/5 ML SOLUTION. PO SCH ×2 (09:03→17:15)
[2019-06-23] MEDS: LACTOBACILLUS RHAMNOSUS GG 1 CAPSULE. PO SCH ×2 (09:03→19:58)
[2019-06-23] MEDS: BUMETANIDE 1 MG/4 ML VIAL. IV SCH ×2 (09:04→14:14)
[2019-06-23] MEDS: CARVEDILOL 3.125 MG TABLET. PO SCH ×2 (09:04→17:15)
[2019-06-23] MEDS: AMIODARONE HCL 200 MG TABLET. PO SCH (09:04)
[2019-06-23] MEDS: INSULIN LISPRO 300 UNITS/3 ML VIAL. SQ SCH ×3 (09:08→17:20)
--- NOTE | 2019-06-23 09:21 | PDOC ---
PULMONARY PROGRESS NOTES Subjective SLEPT WELL OFF BIPAP NO NEW COMPLAINTS COUGH AT TIMES PRODUCTIVE ON 02 Vitals Vital Signs Date Time Temp Pulse Resp B/P (MAP) Pulse Ox O2 Delivery O2 Flow Rate FiO2 06/23/19 09:04 90 103/79 06/23/19 08:00 14 99 Nasal Cannula 5.0 06/23/19 04:00 97.6 97.6 ROS: No Nausea, No Chest Pain, No Abdominal Pain, No Increase Cough General: Alert Lungs: Crackles Cardiovascular: S1, S2 Abdomen: Soft Neuro Exam: Alert Extremities: No Edema Skin: Warm Labs Laboratory Tests Test 06/21/19 12:19 06/21/19 17:26 06/21/19 21:40 06/22/19 05:07 Glucose (Fingerstick) 192 mg/dL (70-99) 196 mg/dL (70-99) 245 mg/dL (70-99) White Blood Count 13.3 x10^3/uL (4.0-11.0) Red Blood Count 3.32 x10^6/uL (4.30-5.70) Hemoglobin 8.6 g/dL (13.0-17.5) Hematocrit 27.2 % (39.0-53.0) Mean Corpuscular Volume 82 fL (79-100) Mean Corpuscular Hemoglobin 26 pg (25-35) Mean Corpuscular Hemoglobin Concent 32 g/dL (31-37) Red Cell Distribution Width 19.2 % (11.5-14.5) Platelet Count 165 x10^3/uL (140-400) Neutrophils (%) (Auto) 95 % (31-73) Lymphocytes (%) (Auto) 2 % (24-48) Monocytes (%) (Auto) 3 % (0-9) Eosinophils (%) (Auto) 0 % (0-3) Basophils (%) (Auto) 0 % (0-3) Neutrophils # (Auto) 12.6 x10^3/uL (1.8-7.7) Lymphocytes # (Auto) 0.2 x10^3/uL (1.0-4.8) Monocytes # (Auto) 0.4 x10^3/uL (0.0-1.1) Eosinophils # (Auto) 0.0 x10^3/uL (0.0-0.7) Basophils # (Auto) 0.0 x10^3/uL (0.0-0.2) Sodium Level 146 mmol/L (136-145) Potassium Level 4.1 mmol/L (3.5-5.1) Chloride Level 104 mmol/L (98-107) Carbon Dioxide Level 42 mmol/L (21-32) Anion Gap 0 (6-14) Blood Urea Nitrogen 23 mg/dL (8-26) Creatinine 1.0 mg/dL (0.7-1.3) Estimated GFR (Cockcroft-Gault) 85.9 Glucose Level 244 mg/dL (70-99) Calcium Level 9.2 mg/dL (8.5-10.1) Test 06/22/19 16:47 06/22/19 20:30 06/23/19 06:05 Glucose (Fingerstick) 353 mg/dL (70-99) 288 mg/dL (70-99) White Blood Count 11.8 x10^3/uL (4.0-11.0) Red Blood Count 3.54 x10^6/uL (4.30-5.70) Hemoglobin 9.1 g/dL (13.0-17.5) Hematocrit 29.1 % (39.0-53.0) Mean Corpuscular Volume 82 fL (79-100) Mean Corpuscular Hemoglobin 26 pg (25-35) Mean Corpuscular Hemoglobin Concent 31 g/dL (31-37) Red Cell Distribution Width 19.4 % (11.5-14.5) Platelet Count 179 x10^3/uL (140-400) Neutrophils (%) (Auto) 97 % (31-73) Lymphocytes (%) (Auto) 1 % (24-48) Monocytes (%) (Auto) 2 % (0-9) Eosinophils (%) (Auto) 0 % (0-3) Basophils (%) (Auto) 0 % (0-3) Neutrophils # (Auto) 11.4 x10^3/uL (1.8-7.7) Lymphocytes # (Auto) 0.1 x10^3/uL (1.0-4.8) Monocytes # (Auto) 0.3 x10^3/uL (0.0-1.1) Eosinophils # (Auto) 0.0 x10^3/uL (0.0-0.7) Basophils # (Auto) 0.0 x10^3/uL (0.0-0.2) Sodium Level 145 mmol/L (136-145) Potassium Level 4.1 mmol/L (3.5-5.1) Chloride Level 101 mmol/L (98-107) Carbon Dioxide Level > 45 mmol/L (21-32) Anion Gap (6-14) Blood Urea Nitrogen 24 mg/dL (8-26) Creatinine 1.0 mg/dL (0.7-1.3) Estimated GFR (Cockcroft-Gault) 85.9 Glucose Level 272 mg/dL (70-99) Calcium Level 9.2 mg/dL (8.5-10.1) Laboratory Tests Test 06/22/19 16:47 06/22/19 20:30 06/23/19 06:05 Glucose (Fingerstick) 353 mg/dL (70-99) 288 mg/dL (70-99) White Blood Count 11.8 x10^3/uL (4.0-11.0) Red Blood Count 3.54 x10^6/uL (4.30-5.70) Hemoglobin 9.1 g/dL (13.0-17.5) Hematocrit 29.1 % (39.0-53.0) Mean Corpuscular Volume 82 fL (79-100) Mean Corpuscular Hemoglobin 26 pg (25-35) Mean Corpuscular Hemoglobin Concent 31 g/dL (31-37) Red Cell Distribution Width 19.4 % (11.5-14.5) Platelet Count 179 x10^3/uL (140-400) Neutrophils (%) (Auto) 97 % (31-73) Lymphocytes (%) (Auto) 1 % (24-48) Monocytes (%) (Auto) 2 % (0-9) Eosinophils (%) (Auto) 0 % (0-3) Basophils (%) (Auto) 0 % (0-3) Neutrophils # (Auto) 11.4 x10^3/uL (1.8-7.7) Lymphocytes # (Auto) 0.1 x10^3/uL (1.0-4.8) Monocytes # (Auto) 0.3 x10^3/uL (0.0-1.1) Eosinophils # (Auto) 0.0 x10^3/uL (0.0-0.7) Basophils # (Auto) 0.0 x10^3/uL (0.0-0.2) Sodium Level 145 mmol/L (136-145) Potassium Level 4.1 mmol/L (3.5-5.1) Chloride Level 101 mmol/L (98-107) Carbon Dioxide Level > 45 mmol/L (21-32) Anion Gap (6-14) Blood Urea Nitrogen 24 mg/dL (8-26) Creatinine 1.0 mg/dL (0.7-1.3) Estimated GFR (Cockcroft-Gault) 85.9 Glucose Level 272 mg/dL (70-99) Calcium Level 9.2 mg/dL (8.5-10.1) Medications Active Scripts Medications Dose Route/Sig Max Daily Dose Days Date Category Torsemide 20 Mg Tablet 5 Mg PO DAILY 06/19/19 Reported Flomax (Tamsulosin Hcl) 0.4 Mg Cap.er.24h 0.8 Mg PO DAILY 06/19/19 Reported Stiolto Respimat Inhal Lloyd (Tiotropium Br/Olodaterol HCl) 4 Gm Mist.inhal 4 Gm IH DAILY 06/19/19 Reported Januvia (Sitagliptin Phosphate) 100 Mg Tablet 1 Tab PO DAILY 06/19/19 Reported Senokot-S Tablet (Sennosides/Docusate Sodium) 1 Each Tablet 2 Tab PO PRN BID 06/19/19 Reported Magnesium 300 Mg Capsule (Magnesium Oxide/Mag Aa Chelate) 300 Mg Capsule 400 Mg PO DAILY 06/19/19 Reported Lovenox (Enoxaparin Sodium) 60 Mg/0.6 Ml Disp.syrin 60 Mg SQ BID 06/19/19 Reported Lovastatin 20 Mg Tablet 20 Mg PO HS 06/19/19 Reported Mucinex (Guaifenesin) 600 Mg Tablet.er 600 Mg PO BID 06/19/19 Reported Prednisone 50 Mg Tablet 10 Mg PO DAILY 06/19/19 Reported Carvedilol 25 Mg Tablet 3.125 Mg PO BIDWMEALS 06/19/19 Reported Children's Aspirin (Aspirin) 81 Mg Tab.chew 81 Mg PO DAILY 06/19/19 Reported Amiodarone Hcl 200 Mg Tablet 200 Mg PO DAILY 06/19/[address] CHEST IMPRESSION: 1. Mediastinal lymphadenopathy may be reactive or metastatic. 2. Large area of consolidations involving the right middle lobe and right lower lobe with air bronchograms. Differential diagnoses includes aspiration or pneumonia. Underlying lung malignancy is not ruled out. Follow-up imaging recommended after medical therapy to ensure resolution. 3. Loculated trace amount of right lower lobe pleural effusion likely parapneumonic effusion. 4. Few nodular opacities in the dependent portion of the left lower lobe likely infectious or aspiration 5. Moderate diffuse emphysema. Electronically signed by: Sha Batista DO (06/19/2019 10:28 AM) [facility] [place] [facility] [place] Impression . 1. Acute on chronic hypoxic respiratory failure secondary to extensive HCAP involving the right lung. SUPSPECT GRAM POS/ NEGATIVE 2. Per records from health care resort, h/o Left lung cancer , treated with XRT/ Chemo at , ct chest with residual para-aortic SHERYL residual density 3. Moderate protein-calorie malnutrition. 4. Long history of tobacco use, suspect severe chronic obstructive pulmonary disease. 5. Mild hypernatremia. 6. Recent h/o pulmonary embolism at , will get records from , on lovenox. 7. SEVERE MALNUTRITION POA 8. ACUTE BLOOD LOSS ANEMIA S/P TRANSFUSION 9. VENOUS DOPPLER OF LOWER EXR NEGATIVE 10. POSSIBLE LUNG ABSCESS Plan . MONITOR H/H STABLE FOR NOW TRANSFER TO [facility] POSSIBLE TRANSFER TO FLOOR NEES PT D/C BIPAP REPEAT CT CHEST IN 4-6 WEEKS ANITBX PER ID PT/OT NUTRITION SUPPORT CCT 30 MINUTES REVIEWING DATA/ XRAYS/ D/W /RN AND FORMULATION A PLAN GRETCHEN PAULSON MD Jun 23, 2019 09:21
--- NOTE | 2019-06-23 09:49 | PDOC ---
PROGRESS NOTES Subjective Subjective feels better today Objective Objective Vital Signs Date Time Temp Pulse Resp B/P (MAP) Pulse Ox O2 Delivery O2 Flow Rate FiO2 06/23/19 09:04 90 103/79 06/23/19 09:00 98.0 22 95 Nasal Cannula 5.0 98.0 Intake and Output 06/23/19 07:00 Intake Total 1490 ml Output Total 2000 ml Balance -510 ml Intake Oral 1340 ml IV Total 150 ml Output Urine Total 2000 ml Physical Exam Abdomen: Soft, No tenderness Heart: Regular rate (SR), Other (distant heart sounds) Extremities: No cyanosis, Other (3+ bilateral LE pitting edema) General: Alert, Oriented X3, Cooperative, mild distress, Other (emaciated) HEENT: Atraumatic, Mucous membr. moist/pink Lungs: Other (diminisehd, basilar crackles) MUSCULOSKELETAL: Osteoarthritic changes both hands Neck: Supple Neuro: Normal speech, Sensation intact Psych/Mental Status: Mental status NL, Mood NL Skin: No breakdown Assessment Assessment FINAL IMPRESSION: Gram neg bacteremia. BLD CULT RESULT 1 Preliminary [place]gl[place] 1. Health care associated pneumonia.. 2. Chronic obstructive pulmonary disease. 3. Acute hypoxic respiratory failure, requiring BiPAP. 4. History of cardiac arrhythmias, on amiodarone. 5. History of hypertension. 6. Diabetes. 7. Hyperlipidemia. 8. Benign prostatic hypertrophy. 9.Lung cancer had radiation and chemo at 10.Recent PE on Lovenox PLAN:family meeting done, continue aggresive treatment except intubation HB 9,6 after transfusion 1 u prbc. resume lovenox,bid for PE. blood c/s positive for gram neg bactermia. Echo good lvf ,pul htn. IV antibiotics for pneumonia.Meropenum and micofungin. [facility] speech consult spoke with pts son at bedside, he was in and out of hospitals with recent Pneumonias.at least 5-6 times d/c from [facility] with lovenox bid shots. spoke with pulmoanry, reviewed records from . spoke with ID poor prognosis. Palliative team consult.,No intubation At this time, was admit to hospital after blood cultures, sputum and broad-spectrum antibiotics, Zosyn and vancomycin. Pulmonary is consulted and breathing treatments. Was given Solu-Medrol 1 dose and we will check for sputum and blood cultures. CT scan of the chest was ordered and see how the patient can respond and DVT prophylaxis. Comment Review of Relevant I have reviewed the following items татьяна (where applicable) has been applied. Labs Laboratory Tests Test 06/22/19 16:47 06/22/19 20:30 06/23/19 06:05 Glucose (Fingerstick) 353 mg/dL (70-99) 288 mg/dL (70-99) White Blood Count 11.8 x10^3/uL (4.0-11.0) Red Blood Count 3.54 x10^6/uL (4.30-5.70) Hemoglobin 9.1 g/dL (13.0-17.5) Hematocrit 29.1 % (39.0-53.0) Mean Corpuscular Volume 82 fL (79-100) Mean Corpuscular Hemoglobin 26 pg (25-35) Mean Corpuscular Hemoglobin Concent 31 g/dL (31-37) Red Cell Distribution Width 19.4 % (11.5-14.5) Platelet Count 179 x10^3/uL (140-400) Neutrophils (%) (Auto) 97 % (31-73) Lymphocytes (%) (Auto) 1 % (24-48) Monocytes (%) (Auto) 2 % (0-9) Eosinophils (%) (Auto) 0 % (0-3) Basophils (%) (Auto) 0 % (0-3) Neutrophils # (Auto) 11.4 x10^3/uL (1.8-7.7) Lymphocytes # (Auto) 0.1 x10^3/uL (1.0-4.8) Monocytes # (Auto) 0.3 x10^3/uL (0.0-1.1) Eosinophils # (Auto) 0.0 x10^3/uL (0.0-0.7) Basophils # (Auto) 0.0 x10^3/uL (0.0-0.2) Sodium Level 145 mmol/L (136-145) Potassium Level 4.1 mmol/L (3.5-5.1) Chloride Level 101 mmol/L (98-107) Carbon Dioxide Level > 45 mmol/L (21-32) Anion Gap (6-14) Blood Urea Nitrogen 24 mg/dL (8-26) Creatinine 1.0 mg/dL (0.7-1.3) Estimated GFR (Cockcroft-Gault) 85.9 Glucose Level 272 mg/dL (70-99) Calcium Level 9.2 mg/dL (8.5-10.1) Microbiology 06/19/19 - Final, Resulted 06/19/19 - Final, Resulted 06/19/19 - Final, Resulted 06/19/19 Gram Stain Evaluation - Final, Resulted 06/19/19 Sputum Culture, Resulted Pending 06/19/19 Blood Culture - Preliminary, Resulted 06/19/19 Blood Culture Result 1 (AIDEE) - Preliminary, Resulted Vitals/I & O Vital Sign - Last 24 Hours 06/22/19 06/22/19 06/22/19 06/22/19 10:00 11:00 12:00 12:00 Temp 98.4 98.4 Pulse 90 96 82 Resp 30 23 18 B/P (MAP) 121/74 (90) 128/74 (92) 107/68 (81) Pulse Ox 90 96 82 O2 Delivery Nasal Cannula Nasal Cannula Nasal Cannula Nasal Cannula O2 Flow Rate 6.0 6.0 4.0 6.0 06/22/19 06/22/19 06/22/19 06/22/19 12:36 13:00 14:00 15:00 Pulse 96 88 90 Resp 32 13 17 B/P (MAP) 113/68 (83) 117/68 (84) 113/69 (84) Pulse Ox 99 96 91 95 O2 Delivery Nasal Cannula Nasal Cannula Nasal Cannula Nasal Cannula O2 Flow Rate 4.0 6.0 3.0 4.0 06/22/19 06/22/19 06/22/19 06/22/19 15:59 16:00 16:41 17:00 Temp 97.7 97.7 Pulse 91 92 Resp 15 22 B/P (MAP) 112/65 (81) 115/71 (86) Pulse Ox 96 97 92 O2 Delivery Nasal Cannula Nasal Cannula Nasal Cannula Nasal Cannula O2 Flow Rate 4.0 4.0 3.0 5.0 06/22/19 06/22/19 06/22/19 06/22/19 17:31 18:00 19:00 19:43 Pulse 94 102 98 Resp 26 26 B/P (MAP) 115/71 118/68 (85) 112/73 (86) Pulse Ox 95 98 98 O2 Delivery Nasal Cannula Nasal Cannula Nasal Cannula O2 Flow Rate 5.0 5.0 5.0 06/22/19 06/22/19 06/22/19 06/22/19 20:00 20:00 21:00 22:00 Temp 97.6 97.6 Pulse 98 86 80 Resp 26 15 12 B/P (MAP) 112/73 (86) 120/68 (85) 98/62 (74) Pulse Ox 98 95 100 O2 Delivery Nasal Cannula Nasal Cannula Nasal Cannula Nasal Cannula O2 Flow Rate 5.0 5.0 5.0 5.0 06/22/19 06/23/19 06/23/19 06/23/19 23:00 00:00 00:00 01:00 Temp 97.6 97.6 Pulse 86 76 74 Resp 20 18 18 B/P (MAP) 105/66 (79) 115/70 (85) 110/63 (79) Pulse Ox 96 100 100 O2 Delivery Nasal Cannula Nasal Cannula Nasal Cannula Nasal Cannula O2 Flow Rate 5.0 5.0 5.0 5.0 06/23/19 06/23/19 06/23/19 06/23/19 02:00 03:00 04:00 04:00 Temp 97.6 97.6 Pulse 72 74 75 Resp 12 12 12 B/P (MAP) 107/65 (79) 105/67 (80) 97/57 (70) Pulse Ox 99 98 97 O2 Delivery Nasal Cannula Nasal Cannula Nasal Cannula Nasal Cannula O2 Flow Rate 5.0 5.0 5.0 5.0 06/23/19 06/23/19 06/23/19 06/23/19 05:00 06:00 07:00 07:53 Pulse 77 73 87 Resp 24 16 22 B/P (MAP) 111/69 (83) 125/75 (92) 103/72 (82) Pulse Ox 100 99 95 92 O2 Delivery Nasal Cannula Nasal Cannula Nasal Cannula Nasal Cannula O2 Flow Rate 5.0 5.0 5.0 4.0 06/23/19 06/23/19 06/23/19 06/23/19 08:00 08:00 09:00 09:04 Temp 98.0 98.0 Pulse 72 96 90 Resp 14 22 B/P (MAP) 119/78 (92) 103/79 (87) 103/79 Pulse Ox 99 95 O2 Delivery Nasal Cannula Nasal Cannula Nasal Cannula O2 Flow Rate 5.0 5.0 5.0 06/23/19 09:04 Pulse 90 B/P (MAP) 103/79 Intake and Output 06/22/19 06/22/19 06/23/19 15:00 23:00 07:00 Intake Total 1140 ml 350 ml Output Total 950 ml 450 ml 600 ml Balance 190 ml -100 ml -600 ml Nutrition Consultation Dietary Evaluation: Recommendations by RD: Increase Calorie Intake, Protein supplementation Comments: Continue w/dysphagia II ADA/cardiac diet w/thin liquid diet REC Glucerna BID Expected Outcomes/Goals: PO intake to meet >75% est needs Malnutrition Findings: Body Fat Depletion (Non Severe: Mild Depletion Weight Status: Underweight RON CARBALLO MD Jun 23, 2019 09:49
[2019-06-23] MEDS: MICAFUNGIN 100 MG in IV DEXTROSE 5% 100ML 100 ML IV SCH (11:18)
[2019-06-23] MEDS ORDERED: BARIUM SULFATE 40% (APPLE) 148 GM PWD. PO ONE (13:15)
--- NOTE | 2019-06-23 14:12 | NUR ---
SS following for discharge planning. SS phoned and faxed referral to [facility], ; fax [phone]. SS will await acceptance decision and will proceed accordingly with discharge planning.
--- NOTE | 2019-06-23 14:40 | RAD ---
Exam: Video Swallowing Study Date: 06/23/2019 History: Clinical suspicion for aspiration Comparison: None Procedure: Video fluoroscopy of the neck was performed from the lateral projection following ingestion of various consistency barium which was administered by the speech pathologist. Fluoroscopy time: 2.4 minutes Findings/ Impression: There was transient laryngeal penetration with thin consistency barium. Otherwise no laryngeal penetration or aspiration of nectar, honey thick, puree or solid consistency barium observed. Please see speech pathology's report for further details of examination. Electronically signed by: Peter Knox MD (06/23/2019 2:37 PM) [facility]
--- NOTE | 2019-06-23 15:27 | NUR ---
SS following up with discharge planning. Pt accepted at [facility], ; fax [phone]. Discharge orders received and faxed to [facility]. SS was notified that they had no beds tonight and would contact SS after 829 tomorrow with update. SS will continue to follow for discharge planning. Pt's RN and pt's family notified.
--- NOTE | 2019-06-23 15:38 | PDOC ---
CARDIO Progress Notes Date and Time Date of Service 06/23/19 Time of Evaluation 1110 Subjective Subjective: No Chest Pain, No Palpitations, Other (beathing better) Vitals Vitals Vital Signs Date Time Temp Pulse Resp B/P (MAP) Pulse Ox O2 Delivery O2 Flow Rate FiO2 06/23/19 12:00 76 19 117/67 (84) 98 Nasal Cannula 5.0 06/23/19 09:00 98.0 98.0 Weight Weight [ ] Input and Output Intake and Output Intake and Output 06/23/19 07:00 Intake Total 1490 ml Output Total 2000 ml Balance -510 ml Intake Oral 1340 ml IV Total 150 ml Output Urine Total 2000 ml Laboratory Labs Laboratory Tests Test 06/22/19 16:47 06/22/19 20:30 06/23/19 06:05 06/23/19 11:17 Glucose (Fingerstick) 353 mg/dL (70-99) 288 mg/dL (70-99) 294 mg/dL (70-99) White Blood Count 11.8 x10^3/uL (4.0-11.0) Red Blood Count 3.54 x10^6/uL (4.30-5.70) Hemoglobin 9.1 g/dL (13.0-17.5) Hematocrit 29.1 % (39.0-53.0) Mean Corpuscular Volume 82 fL (79-100) Mean Corpuscular Hemoglobin 26 pg (25-35) Mean Corpuscular Hemoglobin Concent 31 g/dL (31-37) Red Cell Distribution Width 19.4 % (11.5-14.5) Platelet Count 179 x10^3/uL (140-400) Neutrophils (%) (Auto) 97 % (31-73) Lymphocytes (%) (Auto) 1 % (24-48) Monocytes (%) (Auto) 2 % (0-9) Eosinophils (%) (Auto) 0 % (0-3) Basophils (%) (Auto) 0 % (0-3) Neutrophils # (Auto) 11.4 x10^3/uL (1.8-7.7) Lymphocytes # (Auto) 0.1 x10^3/uL (1.0-4.8) Monocytes # (Auto) 0.3 x10^3/uL (0.0-1.1) Eosinophils # (Auto) 0.0 x10^3/uL (0.0-0.7) Basophils # (Auto) 0.0 x10^3/uL (0.0-0.2) Sodium Level 145 mmol/L (136-145) Potassium Level 4.1 mmol/L (3.5-5.1) Chloride Level 101 mmol/L (98-107) Carbon Dioxide Level > 45 mmol/L (21-32) Anion Gap (6-14) Blood Urea Nitrogen 24 mg/dL (8-26) Creatinine 1.0 mg/dL (0.7-1.3) Estimated GFR (Cockcroft-Gault) 85.9 Glucose Level 272 mg/dL (70-99) Calcium Level 9.2 mg/dL (8.5-10.1) Microbiology Micro Microbiology 06/19/19 - Final, Resulted 06/19/19 - Final, Resulted 06/19/19 - Final, Resulted 06/19/19 - Preliminary, Resulted 06/19/19 - Preliminary, Resulted 06/19/19 - Preliminary, Resulted 06/19/19 Gram Stain Evaluation - Final, Resulted 06/19/19 Sputum Culture - Final, Resulted 06/19/19 Sputum Result 1 - Final, Resulted 06/19/19 Blood Culture - Preliminary, Resulted 06/19/19 Blood Culture Result 1 (AIDEE) - Preliminary, Resulted Physical Exam HEENT: Neck Supple W Full Motion Chest: Symmetric LUNGS: Other (diminished throughout ) Heart: S1S2, RRR Abdomen: Soft N/T Extremities: Other (trace bilateral LE edema ) Neurology: alert, oriented, follow commands Assessment Assessment 1. Acute respiratory failure with HCAP with GNR: ID and pulmonary following 2. AECOPD 3. Mild diastolic CHF: induced by above. Dyspnea mainly from COPD/PNA. Echo with preserved LV systolic function 4. PAFIB: Maintaining SR with Amiodarone 5. HTN: controlled 6. HLP; statin 7. 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 No arrhythmias so far. 8. Recent PE 9. Normocytic anemia: s/p 1 unit PRBCs. Eliquis on hold. Hgb stable Recommendations Ongoing treatment of PNA Monitor H and H Supportive care Follow up with primary director of annual giving, Dr. Velazquez upon discharge TEDDY SHI APRN Jun 23, 2019 15:38
--- NOTE | 2019-06-23 18:15 | NUR ---
Pt transferred from ICU to room 675. Report received from CARLINE Amos. Pt transported via wheelchair, pt daughter at bedside. Agree with all previous charting.
[2019-06-23] MEDS: ATORVASTATIN CALCIUM 10 MG TABLET. PO SCH (19:57)
[2019-06-23] MEDS ORDERED: METH40VI IV (22:23)
[2019-06-23] MEDS ORDERED: INSU100I11 SQ (22:23)
[2019-06-23] MEDS ORDERED: IPRA3AMP29 NEB (22:23)
[2019-06-23] MEDS ORDERED: MICA100V3 IV (22:23)
[2019-06-23] MEDS ORDERED: ENOX40DI3 SQ (22:23)
[2019-06-23] MEDS ORDERED: MERO500V15 IV (22:23)
--- NOTE | 2019-06-23 22:26 | SNU/HH DC ---
DISCHARGE ORDERS DISCHARGE INFORMATION: DISCHARGE DATE: Jun 24, 2019 CONDITION ON DISCHARGE: Guarded CODE STATUS: Code Status: Other (no intubation) SNF: SNF STAY <30 DAYS: Yes HOSPICE: HOSPICE: No HOSPICE EVAL & TREAT: No LTAC: ADMIT TO LTAC: Yes POST DISCHARGE ORDERS: ACTIVITY ORDERS: Activity as tolerated WEIGHT BEARING STATUS: As tolerated DIET AFTER DISCHARGE: Cardiac CHECKS AFTER DISCHARGE: CHECKS AFTER DISCHARGE: Check blood press - daily, Check blood sugar, ac/hs TREATMENT/EQUIPMENT ORDERS: RESPIRATORY EQUIPMENT NEEDED: Oxygen, Nebulizer, CPAP (as needed) Physical Therapy For: Evalulation/Treatment Occupational Therapy For: Evaluation/Treatment DISCHARGE MEDICATIONS: Home Meds Active Scripts Insulin Lispro (HUMALOG) 100 Unit/1 Ml Insuln.pen, 0 SQ TIDWMEALS for dm for 30 Days, EACH Prov:RON CARBALLO MD 06/23/19 Methylprednisolone Sod Succ/Pf (SOLU-MEDROL 40 MG VIAL) 40 Mg/1 Ml Vial, 40 MG IV Q12H for copd for 5 Days, EACH Prov:RON CARBALLO MD 06/23/19 Micafungin Sodium (MYCAMINE) 100 Mg Vial, 100 MG IV DAILY for pneumonia for 10 Days, #10 EACH Prov:RON CARBALLO MD 06/23/19 Meropenem (MEROPENEM) 500 Mg Vial, 500 MG IV Q6HRS for pneumonia for 10 Days, #40 EACH Prov:RON CARBALLO MD 06/23/19 Ipratropium/Albuterol Sulfate (DUONEB 0.5-3(2.5) MG/3 ML) 3 Ml Ampul.neb, 3 ML NEB RTQID for pneumonia for 30 Days, #120 EACH Prov:RON CARBALLO MD 06/23/19 Enoxaparin Sodium (ENOXAPARIN SODIUM) 40 Mg/0.4 Ml Disp.syrin, 40 MG SQ Q12HR for PE for 30 Days, DIS.SYR Prov:RON CARBALLO MD 06/23/19 Reported Medications Torsemide (TORSEMIDE) 20 Mg Tablet, 5 MG PO DAILY for ., TAB 06/19/19 Tamsulosin Hcl (FLOMAX) 0.4 Mg Cap.er.24h, 0.8 MG PO DAILY for ., TAB 06/19/19 Sitagliptin Phosphate (JANUVIA) 100 Mg Tablet, 1 TAB PO DAILY for ., #30 TAB 5 Refills 06/19/19 Sennosides/Docusate Sodium (SENOKOT-S TABLET) 1 Each Tablet, 2 TAB PO PRN BID for ., #30 TAB 06/19/19 Magnesium Oxide/Mag Aa Chelate (MAGNESIUM 300 MG CAPSULE) 300 Mg Capsule, 400 MG PO DAILY for ., CAP 06/19/19 Lovastatin (LOVASTATIN) 20 Mg Tablet, 20 MG PO HS for ., TAB 06/19/19 Guaifenesin (MUCINEX) 600 Mg Tablet.er, 600 MG PO BID for ., TAB.SR 06/19/19 Carvedilol (CARVEDILOL) 25 Mg Tablet, 3.125 MG PO BIDWMEALS for CARDIAC, TAB 06/19/19 Aspirin (Children's Aspirin) 81 Mg Tab.chew, 81 MG PO DAILY for ., TAB.CHEW 06/19/19 Amiodarone Hcl (AMIODARONE HCL) 200 Mg Tablet, 200 MG PO DAILY for ., TAB 06/19/19 Discontinued Reported Medications Tiotropium Br/Olodaterol HCl (Stiolto Respimat Inhal [place]) 4 Gm Mist.inhal, 4 GM IH DAILY for ., SPRAY 06/19/19 Enoxaparin Sodium (LOVENOX) 60 Mg/0.6 Ml Disp.syrin, 60 MG SQ BID for ANTI- COAGULANT, DIS.SYR 06/19/19 Prednisone (PREDNISONE) 50 Mg Tablet, 10 MG PO DAILY for ., TAB 06/19/19 RON CARBALLO MD Jun 23, 2019 22:26
[2019-06-24] MEDS: MEROPENEM 500 MG in IV NORMAL SALINE 50ML 50 ML IV SCH ×4 (01:01→17:46)
[2019-06-24 03:22] VITALS: BP 110/68
[2019-06-24] MEDS: methylPREDNISolone SOD SUCC PF 40 MG/ML VIAL. IV SCH ×2 (05:52→18:17)
--- NOTE | 2019-06-24 06:09 | NUR ---
pt states he does not remember his allergies at this time.
[2019-06-24] MEDS: IPRATRPIUM/ALBUTEROL 0.5/2.5MG 3 ML NEBU. NEB SCH ×5 (06:59→20:53)
[2019-06-24 07:20] VITALS: BP 118/75
--- NOTE | 2019-06-24 07:51 | PDOC ---
Infectious Disease Note Subjective Subjective More comfortable - better. Still cough but less and less sputum. Occ SOA better. No blood + Flatus but no BM. urinating well No F/C/D/N/itch Vital Sign Vital Signs Vital Signs Date Time Temp Pulse Resp B/P (MAP) Pulse Ox O2 Delivery O2 Flow Rate FiO2 06/24/19 07:20 97.7 73 18 118/75 (89) 97 Nasal Cannula 5.0 97.7 Physical Exam PHYSICAL EXAM CONSTITUTIONAL: He is alert.. He is not in any acute distress.Coop - looks even better HEENT: He has normal conjunctivae. Oral cavity, oropharynx was dry. NECK: Without JVD. LUNGS: CTA HEART: S1, S2. ABDOMEN: Soft, no guarding, no rebound. EXTREMITIES: Thin. No clubbing, cyanosis. SKIN: Warm to touch without signs of rash. NEUROLOGIC: He is nonfocal, answered questions. PSYCHIATRIC: Affect appropriate IV: clean Labs Lab Laboratory Tests Test 06/23/19 11:17 06/23/19 16:59 06/23/19 20:17 Glucose (Fingerstick) 294 mg/dL (70-99) 181 mg/dL (70-99) 182 mg/dL (70-99) Micro BLD CULT RESULT 1 Final [place]gl[place] Performed at: [facility] [id number], [place], [place] [id number] Sales Review Clerk: MATTY Benites MD, Phone: [phone] ANTIMICROBIAL SUSCEPTIBILITY Final Comment S = Susceptible; I = Intermediate; R = Resistant P = Positive; N = Negative MICS are expressed in micrograms per mL Antibiotic RSLT#1 RSLT#2 RSLT#3 RSLT#4 Amoxicillin/Clavulanate S =8/4 Cefepime S<=2 Ceftriaxone R =4 Cefuroxime S<=4 Ciprofloxacin S<=1 Ertapenem S<=0.5 Gentamicin S<=1 Imipenem S<=1 Levofloxacin S<=1 Meropenem S<=1 Piperacillin/Tazobactam S<=8 Tobramycin S<=1 Trimethoprim/Sulfa S<=2/38 06/19 BLD CULT RESULT 1 Preliminary [place] Microbiology 06/19/19 Blood Culture - Preliminary, Resulted NO GROWTH AFTER 1 DAY Objective Assessment [place] sepsis - POA 06/19 resistant to Rocephin Acute hypoxic resp failure - better- U/S - neg for DVT Pneumonia cannot r/o ? Lung abscess - sputum cult is neg Leukocytosis - S/p steroid/PRBCs - better Anemia - PRBCs 06/21 DM Arrhythmias Aspiration with thin liquids Plan Plan of Care Cont Meropenem (06/20) to cover potential anerobes as well Will discont Micafungin today 06/20 - 06/23 F/u labs and cults - sens May need f/u imaging D/w nursing NEIL ORELLANA MD Jun 24, 2019 07:51
[2019-06-24] MEDS: INSULIN LISPRO 300 UNITS/3 ML VIAL. SQ SCH ×5 (08:00→17:51)
[2019-06-24] MEDS: LINAGLIPTIN 5 MG TABLET PO SCH (08:46)
[2019-06-24] MEDS: ASPIRIN CHEWABLE 81 MG TABLET. PO SCH (08:46)
[2019-06-24] MEDS: LACTOBACILLUS RHAMNOSUS GG 1 CAPSULE. PO SCH ×2 (08:46→21:38)
[2019-06-24] MEDS: ENOXAPARIN 40 MG/0.4 ML SYRINGE. SQ SCH ×2 (08:46→21:39)
[2019-06-24] MEDS: AMIODARONE HCL 200 MG TABLET. PO SCH (08:46)
[2019-06-24] MEDS: FERROUS SULFATE ORAL 300 MG/5 ML SOLUTION. PO SCH ×2 (08:46→17:46)
[2019-06-24] MEDS: CARVEDILOL 3.125 MG TABLET. PO SCH ×2 (08:47→17:46)
[2019-06-24] MEDS: TAMSULOSIN 0.4 MG CAP.ER.24H. PO SCH (08:47)
[2019-06-24] MEDS: BUMETANIDE 1 MG/4 ML VIAL. IV SCH ×2 (10:04→14:27)
--- NOTE | 2019-06-24 10:21 | PDOC ---
PROGRESS NOTES Subjective Subjective no new problems ,moved out of icu Objective Objective Vital Signs Date Time Temp Pulse Resp B/P (MAP) Pulse Ox O2 Delivery O2 Flow Rate FiO2 06/24/19 08:47 73 118/75 06/24/19 08:00 Nasal Cannula 5.0 06/24/19 07:20 97.7 18 97 97.7 Intake and Output 06/24/19 06:59 Intake Total 1750 ml Output Total 2400 ml Balance -650 ml Intake Oral 1500 ml IV Total 250 ml Output Urine Total 2400 ml # Bowel Movements 1 Physical Exam Abdomen: Soft, No tenderness Heart: Regular rate (SR), Other (distant heart sounds) Extremities: No cyanosis, Other (3+ bilateral LE pitting edema) General: Alert, Oriented X3, Cooperative, mild distress, Other (emaciated) HEENT: Atraumatic, Mucous membr. moist/pink Lungs: Other (diminisehd, basilar crackles) MUSCULOSKELETAL: Osteoarthritic changes both hands Neck: Supple Neuro: Normal speech, Sensation intact Psych/Mental Status: Mental status NL, Mood NL Skin: No breakdown Assessment Assessment FINAL IMPRESSION: Gram neg bacteremia. BLD CULT RESULT 1 Preliminary [place] 1. Health care associated pneumonia.. 2. Chronic obstructive pulmonary disease. 3. Acute hypoxic respiratory failure, requiring BiPAP. 4. History of cardiac arrhythmias, on amiodarone. 5. History of hypertension. 6. Diabetes. 7. Hyperlipidemia. 8. Benign prostatic hypertrophy. 9.Lung cancer had radiation and chemo at 10.Recent PE on Lovenox PLAN: d/c to [facility] today. family meeting done, continue aggresive treatment except intubation HB 9,6 after transfusion 1 u prbc. resume lovenox,bid for PE. blood c/s positive for gram neg bactermia. Echo good lvf ,pul htn. IV antibiotics for pneumonia.Meropenum and micofungin. [facility] speech consult spoke with pts son at bedside, he was in and out of hospitals with recent Pneumonias.at least 5-6 times d/c from [facility] with lovenox bid shots. spoke with pulmoanry, reviewed records from . spoke with ID poor prognosis. Palliative team consult.,No intubation At this time, was admit to hospital after blood cultures, sputum and broad-spectrum antibiotics, Zosyn and vancomycin. Pulmonary is consulted and breathing treatments. Was given Solu-Medrol 1 dose and we will check for sputum and blood cultures. CT scan of the chest was ordered and see how the patient can respond and DVT prophylaxis. Comment Review of Relevant I have reviewed the following items татьяна (where applicable) has been applied. Labs Laboratory Tests Test 06/23/19 11:17 06/23/19 16:59 06/23/19 20:17 06/24/19 08:20 Glucose (Fingerstick) 294 mg/dL (70-99) 181 mg/dL (70-99) 182 mg/dL (70-99) 238 mg/dL (70-99) Microbiology 06/19/19 - Final, Resulted 06/19/19 - Final, Resulted 06/19/19 - Final, Resulted 06/19/19 - Preliminary, Resulted 06/19/19 - Preliminary, Resulted 06/19/19 - Preliminary, Resulted 06/19/19 Gram Stain Evaluation - Final, Resulted 06/19/19 Sputum Culture - Final, Resulted 06/19/19 Sputum Result 1 - Final, Resulted 06/19/19 Blood Culture - Final, Complete 06/19/19 Blood Culture Result 1 (AIDEE) - Final, Complete 06/19/19 Antimicrobic Susceptibility - Final, Complete Medications Current Medications Barium Sulfate (Varibar Thin Liquid Apple) 148 gm 1X ONCE PO Last administered on 06/23/19at 13:30; Start 06/23/19 at 13:15; Stop 06/23/19 at 13:16; Status DC Methylprednisolone Sodium Succinate (SOLU-Medrol 40MG VIAL) 30 mg Q12H IV Last administered on 06/24/19at 05:52; Start 06/23/19 at 18:00 Vitals/I & O Vital Sign - Last 24 Hours 06/23/19 06/23/19 06/23/19 06/23/19 11:56 11:57 12:00 15:00 Temp 98.2 98.2 Pulse 76 85 Resp 19 13 B/P (MAP) 117/67 (84) 100/59 (73) Pulse Ox 94 98 94 O2 Delivery Nasal Cannula Nasal Cannula Nasal Cannula Nasal Cannula O2 Flow Rate 5.0 4.0 5.0 5.0 06/23/19 06/23/19 06/23/19 06/23/19 15:36 17:15 18:15 19:38 Temp 97.7 97.7 Pulse 88 90 Resp 18 B/P (MAP) 100/59 119/80 (93) Pulse Ox 98 98 95 O2 Delivery Nasal Cannula Nasal Cannula Nasal Cannula O2 Flow Rate 4.0 5.0 5.0 06/23/19 06/23/19 06/23/19 06/24/19 19:49 20:00 23:18 03:22 Temp 97.6 98.3 98.3 97.6 98.3 98.3 Pulse 87 78 73 Resp 20 16 16 B/P (MAP) 121/72 (88) 103/58 (73) 110/68 (82) Pulse Ox 95 99 98 O2 Delivery Nasal Cannula Nasal Cannula Nasal Cannula Nasal Cannula O2 Flow Rate 5.0 5.0 5.0 5.0 06/24/19 06/24/19 06/24/19 06/24/19 07:01 07:20 08:00 08:46 Temp 97.7 97.7 Pulse 73 73 Resp 18 B/P (MAP) 118/75 (89) 118/75 Pulse Ox 97 97 O2 Delivery Nasal Cannula Nasal Cannula Nasal Cannula O2 Flow Rate 5.0 5.0 5.0 06/24/19 08:47 Pulse 73 B/P (MAP) 118/75 Intake and Output 06/23/19 06/23/19 06/24/19 14:59 22:59 06:59 Intake Total 900 ml 650 ml 200 ml Output Total 800 ml 400 ml 1200 ml Balance 100 ml 250 ml -1000 ml Nutrition Consultation Dietary Evaluation: Recommendations by RD: Increase Calorie Intake, Protein supplementation Comments: Continue w/dysphagia II ADA/cardiac diet w/thin liquid diet REC Glucerna BID Expected Outcomes/Goals: PO intake to meet >75% est needs Malnutrition Findings: Body Fat Depletion (Non Severe: Mild Depletion Weight Status: Underweight RON CARBALLO MD Jun 24, 2019 10:21
--- NOTE | 2019-06-24 10:49 | PDOC ---
PULMONARY PROGRESS NOTES Subjective NOT MORE SOA NO NEW COMPLAINTS COUGH AT TIMES PRODUCTIVE ON 02 Vitals Vital Signs Date Time Temp Pulse Resp B/P (MAP) Pulse Ox O2 Delivery O2 Flow Rate FiO2 06/24/19 08:47 73 118/75 06/24/19 08:00 Nasal Cannula 5.0 06/24/19 07:20 97.7 18 97 97.7 ROS: No Nausea, No Chest Pain, No Abdominal Pain, No Increase Cough General: Alert Lungs: Crackles Cardiovascular: S1, S2 Abdomen: Soft Neuro Exam: Alert Extremities: No Edema Skin: Warm Labs Laboratory Tests Test 06/22/19 16:47 06/22/19 20:30 06/23/19 06:05 06/23/19 11:17 Glucose (Fingerstick) 353 mg/dL (70-99) 288 mg/dL (70-99) 294 mg/dL (70-99) White Blood Count 11.8 x10^3/uL (4.0-11.0) Red Blood Count 3.54 x10^6/uL (4.30-5.70) Hemoglobin 9.1 g/dL (13.0-17.5) Hematocrit 29.1 % (39.0-53.0) Mean Corpuscular Volume 82 fL (79-100) Mean Corpuscular Hemoglobin 26 pg (25-35) Mean Corpuscular Hemoglobin Concent 31 g/dL (31-37) Red Cell Distribution Width 19.4 % (11.5-14.5) Platelet Count 179 x10^3/uL (140-400) Neutrophils (%) (Auto) 97 % (31-73) Lymphocytes (%) (Auto) 1 % (24-48) Monocytes (%) (Auto) 2 % (0-9) Eosinophils (%) (Auto) 0 % (0-3) Basophils (%) (Auto) 0 % (0-3) Neutrophils # (Auto) 11.4 x10^3/uL (1.8-7.7) Lymphocytes # (Auto) 0.1 x10^3/uL (1.0-4.8) Monocytes # (Auto) 0.3 x10^3/uL (0.0-1.1) Eosinophils # (Auto) 0.0 x10^3/uL (0.0-0.7) Basophils # (Auto) 0.0 x10^3/uL (0.0-0.2) Sodium Level 145 mmol/L (136-145) Potassium Level 4.1 mmol/L (3.5-5.1) Chloride Level 101 mmol/L (98-107) Carbon Dioxide Level > 45 mmol/L (21-32) Anion Gap (6-14) Blood Urea Nitrogen 24 mg/dL (8-26) Creatinine 1.0 mg/dL (0.7-1.3) Estimated GFR (Cockcroft-Gault) 85.9 Glucose Level 272 mg/dL (70-99) Calcium Level 9.2 mg/dL (8.5-10.1) Test 06/23/19 16:59 06/23/19 20:17 06/24/19 08:20 Glucose (Fingerstick) 181 mg/dL (70-99) 182 mg/dL (70-99) 238 mg/dL (70-99) Laboratory Tests Test 06/23/19 11:17 06/23/19 16:59 06/23/19 20:17 06/24/19 08:20 Glucose (Fingerstick) 294 mg/dL (70-99) 181 mg/dL (70-99) 182 mg/dL (70-99) 238 mg/dL (70-99) Medications Active Scripts Medications Dose Route/Sig Max Daily Dose Days Date Category Torsemide 20 Mg Tablet 5 Mg PO DAILY 06/19/19 Reported Flomax (Tamsulosin Hcl) 0.4 Mg Cap.er.24h 0.8 Mg PO DAILY 06/19/19 Reported Stiolto Respimat Inhal [place] (Tiotropium Br/Olodaterol HCl) 4 Gm Mist.inhal 4 Gm IH DAILY 06/19/19 Reported Januvia (Sitagliptin Phosphate) 100 Mg Tablet 1 Tab PO DAILY 06/19/19 Reported Senokot-S Tablet (Sennosides/Docusate Sodium) 1 Each Tablet 2 Tab PO PRN BID 06/19/19 Reported Magnesium 300 Mg Capsule (Magnesium Oxide/Mag Aa Chelate) 300 Mg Capsule 400 Mg PO DAILY 06/19/19 Reported Lovenox (Enoxaparin Sodium) 60 Mg/0.6 Ml Disp.syrin 60 Mg SQ BID 06/19/19 Reported Lovastatin 20 Mg Tablet 20 Mg PO HS 06/19/19 Reported Mucinex (Guaifenesin) 600 Mg Tablet.er 600 Mg PO BID 06/19/19 Reported Prednisone 50 Mg Tablet 10 Mg PO DAILY 06/19/19 Reported Carvedilol 25 Mg Tablet 3.125 Mg PO BIDWMEALS 06/19/19 Reported Children's Aspirin (Aspirin) 81 Mg Tab.chew 81 Mg PO DAILY 06/19/19 Reported Amiodarone Hcl 200 Mg Tablet 200 Mg PO DAILY 06/19/[address] CHEST IMPRESSION: 1. Mediastinal lymphadenopathy may be reactive or metastatic. 2. Large area of consolidations involving the right middle lobe and right lower lobe with air bronchograms. Differential diagnoses includes aspiration or pneumonia. Underlying lung malignancy is not ruled out. Follow-up imaging recommended after medical therapy to ensure resolution. 3. Loculated trace amount of right lower lobe pleural effusion likely parapneumonic effusion. 4. Few nodular opacities in the dependent portion of the left lower lobe likely infectious or aspiration 5. Moderate diffuse emphysema. Electronically signed by: Sha Batista DO (06/19/2019 10:28 AM) [facility] Impression . 1. Acute on chronic hypoxic respiratory failure secondary to extensive HCAP involving the right lung. SUPSPECT GRAM POS/ NEGATIVE 2. Per records from [facility] care resort, h/o Left lung cancer , treated with XRT/ Chemo at , ct chest with residual para-aortic SHERYL residual density 3. Moderate protein-calorie malnutrition. 4. Long history of tobacco use, suspect severe chronic obstructive pulmonary disease. 5. Mild hypernatremia. 6. Recent h/o pulmonary embolism at , will get records from , on lovenox. 7. SEVERE MALNUTRITION POA 8. ACUTE BLOOD LOSS ANEMIA S/P TRANSFUSION 9. VENOUS DOPPLER OF LOWER EXR NEGATIVE 10. POSSIBLE LUNG ABSCESS Plan . RESP STATUS IS COMPENSATED TRANSFER TO [facility] WHEN BED AVAILABLE REPEAT CT CHEST IN 4-6 WEEKS ANITBX PER ID PT/OT NUTRITION SUPPORT GRETCHEN PAULSON MD Jun 24, 2019 10:49
[2019-06-24 11:08] VITALS: BP 118/73
[2019-06-24] MEDS ORDERED: INSULIN LISPRO 300 UNITS/3 ML VIAL. SQ SCH (12:15)
[2019-06-24 15:23] VITALS: BP 106/60
--- NOTE | 2019-06-24 16:15 | NUR ---
SW following pt. No beds [facility] today. [facility] reported [facility] will be [facility] pt tomorrow at 1230. Orders are already faxed to [facility] but transport will need to be arranged for tomorrow. Pt is notified about change in dc date. RN notified.
[2019-06-24 19:39] VITALS: BP 90/58
[2019-06-24] MEDS ORDERED: INSULIN GLARGINE SYRINGE. SQ SCH (21:00)
[2019-06-24] MEDS: ATORVASTATIN CALCIUM 10 MG TABLET. PO SCH (21:38)
[2019-06-24 23:44] VITALS: BP 96/56
[2019-06-25] MEDS: MEROPENEM 500 MG in IV NORMAL SALINE 50ML 50 ML IV SCH ×2 (00:48→05:44)
[2019-06-25 03:41] VITALS: BP 93/60
[2019-06-25] MEDS: methylPREDNISolone SOD SUCC PF 40 MG/ML VIAL. IV SCH (05:44)
[2019-06-25 07:57] VITALS: BP 99/67
[2019-06-25] MEDS: INSULIN LISPRO 300 UNITS/3 ML VIAL. SQ SCH ×4 (08:00→12:12)
[2019-06-25] MEDS: IPRATRPIUM/ALBUTEROL 0.5/2.5MG 3 ML NEBU. NEB SCH ×2 (08:05→11:44)
--- NOTE | 2019-06-25 08:47 | PDOC ---
IM PROGRESS NOTES- Subjective Subjective He has cough and congestion. Objective Vitals/I&O Vital Signs Date Time Temp Pulse Resp B/P (MAP) Pulse Ox O2 Delivery O2 Flow Rate FiO2 06/25/19 08:07 96 Nasal Cannula 4.0 06/25/19 07:57 98.3 76 18 99/67 (78) 98.3 I & O 06/24/19 06/24/19 06/25/19 15:00 23:00 07:00 Intake Total 640 ml 240 ml Output Total 1050 ml Balance 640 ml -810 ml Physical Exam Physical Exam General appearance - alert,ill appearing, and in no distress and oriented to person, place, and time Mental Status - alert, oriented to person, place, and time, affect appropriate to mood Head - normal Chest -bilateral coarse breath sounds. Heart - S1 and S2 normal Abdomen - soft, nontender, nondistended, no masses or organomegaly Neurological - alert and oriented Musculoskeletal - no muscular tenderness noted Extremities - no pedal edema Skin - warm and dry Labs Laboratory Tests Test 06/24/19 11:33 06/24/19 16:41 06/24/19 20:18 06/25/19 07:36 Glucose (Fingerstick) 371 mg/dL (70-99) H 303 mg/dL (70-99) H 104 mg/dL (70-99) H 81 mg/dL (70-99) Meds Current Medications Medications (Trade) Dose Ordered Sig/Roberta Route PRN Reason Start Time Stop Time Status Last Admin Dose Admin Insulin Human Lispro (HumaLOG) 5 units TIDWMEALS SQ 06/24/19 12:05 06/24/19 17:00 Insulin Glargine (Lantus Syringe) 10 unit QHS SQ 06/24/19 21:00 06/24/19 21:46 Assessment Assessment FINAL IMPRESSION: Gram neg bacteremia. BLD CULT RESULT 1 Preliminary Pantoea agglomerans 1. Health care associated pneumonia.. 2. Chronic obstructive pulmonary disease. 3. Acute hypoxic respiratory failure, requiring BiPAP. 4. History of cardiac arrhythmias, on amiodarone. 5. History of hypertension. 6. Diabetes. 7. Hyperlipidemia. 8. Benign prostatic hypertrophy. 9.Lung cancer had radiation and chemo at 10.Recent PE on Lovenox PLAN: d/c to [facility] today. family meeting done, continue aggresive treatment except intubation HB 9,6 after transfusion 1 u prbc. resume lovenox,bid for PE. blood c/s positive for gram neg bactermia. Echo good lvf ,pul htn. IV antibiotics for pneumonia.Meropenum and micofungin. [facility] speech consult He has recurrent pneumonia. [facility] with [facility]enox bid shots. Patient has a history of pulmonary embolism. Will change Lovenox to Apixaban after transfer. poor prognosis. Palliative team was consulted. Patient is DNI. [facility]. Long-term as well as short-term prognosis is very poor. Discharge management 35 minutes. Patient is on IV meropenem to cover anaerobes.. Micafungin was discontinued. Plan Plan For more details regarding further plans, please refer to the orders. Nutrition Consultation Dietary Evaluation: Recommendations by RD: Increase Calorie Intake, Protein supplementation Comments: Continue w/dysphagia II ADA/cardiac diet w/thin liquid diet Glucerna BID Expected Outcomes/Goals: PO intake to meet >75% est needs - goal ongoing Malnutrition Findings: Body Fat Depletion (Non Severe: Mild Depletion Weight Status: Underweight BIANKA HANKS MD Jun 25, 2019 08:47
[2019-06-25] MEDS: AMIODARONE HCL 200 MG TABLET. PO SCH (08:52)
[2019-06-25] MEDS: FERROUS SULFATE ORAL 300 MG/5 ML SOLUTION. PO SCH (08:52)
[2019-06-25] MEDS: LACTOBACILLUS RHAMNOSUS GG 1 CAPSULE. PO SCH (08:53)
[2019-06-25] MEDS: ASPIRIN CHEWABLE 81 MG TABLET. PO SCH (08:53)
[2019-06-25] MEDS: CARVEDILOL 3.125 MG TABLET. PO SCH (08:53)
[2019-06-25] MEDS: TAMSULOSIN 0.4 MG CAP.ER.24H. PO SCH (08:53)
[2019-06-25] MEDS: LINAGLIPTIN 5 MG TABLET PO SCH (08:53)
[2019-06-25] MEDS: BUMETANIDE 1 MG/4 ML VIAL. IV SCH (08:54)
[2019-06-25] MEDS: ENOXAPARIN 40 MG/0.4 ML SYRINGE. SQ SCH (08:54)
--- NOTE | 2019-06-25 10:00 | PDOC ---
PULMONARY PROGRESS NOTES Subjective Pt. is resting in bed comfortably, denies any SOA, denies increase in cough remains on 4 liters N/C which is baseline oxygen req. at home Vitals Vital Signs Date Time Temp Pulse Resp B/P (MAP) Pulse Ox O2 Delivery O2 Flow Rate FiO2 06/25/19 08:53 76 99/67 06/25/19 08:07 96 Nasal Cannula 4.0 06/25/19 07:57 98.3 18 98.3 ROS: No Nausea, No Chest Pain, No Abdominal Pain, No Increase Cough General: Oriented X4 Lungs: Crackles Cardiovascular: S1, S2 Abdomen: Soft Neuro Exam: Alert Extremities: No Edema Skin: Warm, Dry Labs Laboratory Tests Test 06/23/19 11:17 06/23/19 16:59 06/23/19 20:17 06/24/19 08:20 Glucose (Fingerstick) 294 mg/dL (70-99) 181 mg/dL (70-99) 182 mg/dL (70-99) 238 mg/dL (70-99) Test 06/24/19 11:33 06/24/19 16:41 06/24/19 20:18 06/25/19 07:36 Glucose (Fingerstick) 371 mg/dL (70-99) 303 mg/dL (70-99) 104 mg/dL (70-99) 81 mg/dL (70-99) Laboratory Tests Test 06/24/19 11:33 06/24/19 16:41 06/24/19 20:18 06/25/19 07:36 Glucose (Fingerstick) 371 mg/dL (70-99) 303 mg/dL (70-99) 104 mg/dL (70-99) 81 mg/dL (70-99) Medications Active Scripts Medications Dose Route/Sig Max Daily Dose Days Date Category Torsemide 20 Mg Tablet 5 Mg PO DAILY 06/19/19 Reported Flomax (Tamsulosin Hcl) 0.4 Mg Cap.er.24h 0.8 Mg PO DAILY 06/19/19 Reported Stiolto Respimat Inhal [place] (Tiotropium Br/Olodaterol HCl) 4 Gm Mist.inhal 4 Gm IH DAILY 06/19/19 Reported Januvia (Sitagliptin Phosphate) 100 Mg Tablet 1 Tab PO DAILY 06/19/19 Reported Senokot-S Tablet (Sennosides/Docusate Sodium) 1 Each Tablet 2 Tab PO PRN BID 06/19/19 Reported Magnesium 300 Mg Capsule (Magnesium Oxide/Mag Aa Chelate) 300 Mg Capsule 400 Mg PO DAILY 06/19/19 Reported Lovenox (Enoxaparin Sodium) 60 Mg/0.6 Ml Disp.syrin 60 Mg SQ BID 06/19/19 Reported Lovastatin 20 Mg Tablet 20 Mg PO HS 06/19/19 Reported Mucinex (Guaifenesin) 600 Mg Tablet.er 600 Mg PO BID 06/19/19 Reported Prednisone 50 Mg Tablet 10 Mg PO DAILY 06/19/19 Reported Carvedilol 25 Mg Tablet 3.125 Mg PO BIDWMEALS 06/19/19 Reported Children's Aspirin (Aspirin) 81 Mg Tab.chew 81 Mg PO DAILY 06/19/19 Reported Amiodarone Hcl 200 Mg Tablet 200 Mg PO DAILY 06/19/[address] CHEST IMPRESSION: 1. Mediastinal lymphadenopathy may be reactive or metastatic. 2. Large area of consolidations involving the right middle lobe and right lower lobe with air bronchograms. Differential diagnoses includes aspiration or pneumonia. Underlying lung malignancy is not ruled out. Follow-up imaging recommended after medical therapy to ensure resolution. 3. Loculated trace amount of right lower lobe pleural effusion likely parapneumonic effusion. 4. Few nodular opacities in the dependent portion of the left lower lobe likely infectious or aspiration 5. Moderate diffuse emphysema. Electronically signed by: Sah Batista DO (06/19/2019 10:28 AM) [facility] Impression . 1. Acute on chronic hypoxic respiratory failure secondary to extensive HCAP involving the right lung. SUPSPECT GRAM POS/ NEGATIVE 2. [facility] from [facility], h/o Left lung cancer , treated with XRT/ Chemo at , ct chest with residual para-aortic SHERYL residual density 3. Moderate protein-calorie malnutrition. 4. Long history of tobacco use, suspect severe chronic obstructive pulmonary disease. 5. Mild hypernatremia. 6. Recent h/o pulmonary embolism at , will get records from , on lovenox. 7. SEVERE MALNUTRITION POA 8. ACUTE BLOOD LOSS ANEMIA S/P TRANSFUSION 9. VENOUS DOPPLER OF LOWER EXR NEGATIVE 10. POSSIBLE LUNG ABSCESS Plan . 1. cont. supplemental oxygen at baseline 4 liter N/C 2. clincally improved 3. cont. PT/OT 4.cont. ABX per ID 5. Ok to D/C to [facility] meghann D/W RN and PT. GRETCHEN PAULSON MD Jun 25, 2019 10:00
[2019-06-25 11:00] VITALS: BP 108/67
--- NOTE | 2019-06-25 14:12 | NUR ---
Discharge Note: LAVERNE HERRING Discharge instructions and discharge home medications reviewed with Other facility and a copy given. All questions have been answered and understanding verbalized. The following instructions and handouts were given: patient visit report, medication information, education. Discontinued lines and drains: peripheral IV, tip intact. Patient discharged to LTAC with nursing services via transporation services. Patient left unit awake, in stable condition with all personal belongings. Report called to CARLINE Montague at [facility].
--- NOTE | 2019-06-27 10:17 | PDOC ---
Provider Note Provider Note Discharge summary dictated.#[id number]. RON CARBALLO MD Jun 27, 2019 10:17
--- NOTE | 2019-06-27 14:50 | DS ---
DATE OF DISCHARGE: 06/25/2019 REASON FOR ADMISSION TO THE HOSPITAL: Healthcare-associated pneumonia, respiratory failure. CONSULTATIONS: 1. Pulmonology. 2. Cardiology, CT chest, echocardiogram, and palliative team. 3. Infectious Disease; Dr. Ruffin. HOSPITAL COURSE: The patient is an 84-year-old male who has history of lung cancer on and off for 3-4 years. He had a radiation and chemo and did not want to pursue further treatments lately because of his ill health. The patient has been in and out of , most of the time at least 5-6 times with pneumonias. He was recently diagnosed with pulmonary embolism, was discharged on Lovenox shots. He came with shortness of breath to the hospital, was found to have infiltrates in the lung, healthcare-associated pneumonia, was treated with broad-spectrum antibiotics. The patient was admitted to the ICU, later on moved to the floor the next day, but he became short of breath third day and was moved back to the ICU and the patient had lot of scarring in the lung, pretty bad infiltrates in the lung, and seen by Pulmonology and Infectious Disease. The patient also has history of coronary artery disease, seen by Cardiology. Echocardiogram shows an ejection fraction of 50-55%, normal LV function. PA pressure was 61. The patient had an extensive discussion with palliative care, and he wishes no intubation but rest of the treatments, he is okay with that. The patient did improve slightly with IV antibiotics, but he needed another 10 days of IV antibiotics. The patient was transferred to skilled LTAC facility at [facility]. Gram-negative rods bacteremia, Pantoea agglomerans, sensitive to meropenem. Sputum shows routine clara. FINAL DIAGNOSES: 1. Healthcare-associated pneumonia. 2. 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 3. History of lung cancer with possible recurrence. 4. Hypertension. 5. Hyperlipidemia. 6. Diabetes. 7. General debility. 8. History of smoking. DISPOSITION: To LTAC facility. No intubation. Continue IV antibiotics, breathing treatments, and steroids. Poor prognosis. RON CARBALLO MD DR: EMLVIN/rosanna JOB#: [id number] / [id number] VERONICA Crowley
== END 2019-06-25 13:00 | DRG 871 ==
LOC: ER 01:58 → 1 WEST ICU 04:35 → 6 SOUTH 13:20 → 1 WEST ICU 06-20 14:58 → 6 SOUTH 06-23 18:15
PROVIDERS: ADMIT Internal Medicine; ATTEND Internal Medicine
PROC: 5A09357 Assistance with Respiratory Ventilation, Less than 24 Consecutive Hours, Continuous Positive Airway Pressure (ICD-10-PCS; 2019-06-19)
PROC: 5A09357 Assistance with Respiratory Ventilation, Less than 24 Consecutive Hours, Continuous Positive Airway Pressure (ICD-10-PCS; 2019-06-20)
PROC: 30233N1 Transfusion of Nonautologous Red Blood Cells into Peripheral Vein, Percutaneous Approach (ICD-10-PCS; principal; 2019-06-21)
PROC: 5A09357 Assistance with Respiratory Ventilation, Less than 24 Consecutive Hours, Continuous Positive Airway Pressure (ICD-10-PCS; 2019-06-21)
DX: A41.50 Gram-negative sepsis, unspecified (principal); J18.9 Pneumonia, unspecified organism; J96.21 Acute and chronic respiratory failure with hypoxia; I50.33 Acute on chronic diastolic (congestive) heart failure; E43 Unspecified severe protein-calorie malnutrition; Z68.1 Body mass index [BMI] 19.9 or less, adult; E87.0 Hyperosmolality and hypernatremia; J44.1 Chronic obstructive pulmonary disease with (acute) exacerbation; J44.0 Chronic obstructive pulmonary disease with (acute) lower respiratory infection; D62 Acute posthemorrhagic anemia; Z16.19 Resistance to other specified beta lactam antibiotics; R64 Cachexia; I95.9 Hypotension, unspecified; E11.9 Type 2 diabetes mellitus without complications; E78.5 Hyperlipidemia, unspecified; Y95 Nosocomial condition; N40.0 Benign prostatic hyperplasia without lower urinary tract symptoms; Z51.5 Encounter for palliative care; K21.9 Gastro-esophageal reflux disease without esophagitis; I11.0 Hypertensive heart disease with heart failure; M19.90 Unspecified osteoarthritis, unspecified site; I48.0 Paroxysmal atrial fibrillation; I25.10 Atherosclerotic heart disease of native coronary artery without angina pectoris; Z87.01 Personal history of pneumonia (recurrent); Z87.891 Personal history of nicotine dependence; Z79.899 Other long term (current) drug therapy; Z86.711 Personal history of pulmonary embolism; Z92.21 Personal history of antineoplastic chemotherapy; Z92.3 Personal history of irradiation; Z85.118 Personal history of other malignant neoplasm of bronchus and lung; Z95.0 Presence of cardiac pacemaker
CPT/HCPCS: 36415; 36430; 36600; 71045; 71250; 74230; 80048; 80053; 80202; 81001; 82805; 82962; 83605; 83880; 84145; 84443; 84484; 85007; 85025; 85610; 86850; 86900; 86901; 86920; 87040; 87070; 87077; 87205; 93005; 93306; 93970; 94640; 94644; 94660; 94760; 96365; 96366; 96368; 96375; J1650; J1815; J1940; J2185; J2248; J2543; J2920; J2930; J3370; J3490; J7030; J7040; J7050; J7613; J7620; P9016; 92526; 92610; 92611; 97116; 97530; 97535; 99291-25; G0378

== ENCOUNTER 2019-07-20 15:53 | Emergency (ER) | payer MEDICARE, BC ==
[~2019-07-20] VITALS: Ht 160 cm; Wt 44.9 kg
[~2019-07-20 15:53] MED LIST: AMIO200T4 PO; ASPI81TA59 PO; CARV25TA2 PO; ENOX40DI3 SQ; ENOX60DI SQ; GUAI600T47 PO; INSU100I11 SQ; IPRA3AMP29 NEB; LOVA20TA2 PO; MAGN300C PO; MERO500V15 IV; METH40VI IV; MICA100V3 IV; PRED50TA PO; SENN-37 PO; SITA100T PO; TAMS0.4C97 PO; TIOT4MIS3 IH; TORS20TA2 PO
[2019-07-20 16:18] LABS: BASO % 0 % (0-3); EOS % 0 % (0-3); HEMATOCRIT 22.9 % (39.0-53.0); HEMOGLOBIN 7.2 g/dL (13.0-17.5); LYMPH # 0.3 x10^3/uL (1.0-4.8); LYMPH % 2 % (24-48); MEAN CORPUSCULAR HEMOGLOBIN 26 pg (25-35); MEAN CORPUSCULAR HGB CONC 31 g/dL (31-37); MEAN CORPUSCULAR VOLUME 84 fL (79-100); MONO # 0.8 x10^3/uL (0.0-1.1); MONO % 5 % (0-9); NEUT # 14.2 x10^3/uL (1.8-7.7); NEUT % 93 % (31-73); PLATELET COUNT 201 x10^3/uL (140-400); RED BLOOD COUNT 2.73 x10^6/uL (4.30-5.70); RED CELL DISTRIBUTION WIDTH 20.9 % (11.5-14.5); WHITE BLOOD COUNT 15.3 x10^3/uL (4.0-11.0)
[2019-07-20 16:27] LABS: CALCIUM 8.3 mg/dL (8.5-10.1); CREATININE 1.2 mg/dL (0.7-1.3); GFR 69.6; POTASSIUM 3.5 mmol/L (3.5-5.1)
[2019-07-20 16:33] LABS: ALBUMIN 2.3 g/dL (3.4-5.0); ALBUMIN/GLOBULIN RATIO 0.6 (1.0-1.7); TOTAL BILIRUBIN 0.4 mg/dL (0.2-1.0); TOTAL PROTEIN 6.4 g/dL (6.4-8.2)
[2019-07-20 16:58] LABS: % BANDS 6 % (0-9); % MONOS 4 % (0-10); % SEGS 90 % (35-66); ANISOCYTOSIS MOD; PLT ESTIMATE ADEQUATE (ADEQUATE); POIKILOCYTOSIS SLIGHT
[2019-07-20 17:00] LABS: POLYCHROMASIA SLIGHT
[2019-07-20 17:01] LABS: SCHISTOCYTES OCC; TARGET CELLS FEW
--- NOTE | 2019-07-20 17:16 | RAD ---
CHEST AP ONLY History: Cough Comparison: June 21, 2019 Findings: Bilateral lower lung patchy opacities, decreased compared to prior. Resolved left pleural effusion. Small right pleural effusion. No pneumothorax. Normal heart size. Rightward curvature of the thoracic spine. Impression: 1. Decreased bilateral lower lung opacities compared to prior. 2. Decreased small right pleural effusion. Electronically signed by: Hayder Robert DO (07/20/2019 5:14 PM) [facility]
--- NOTE | 2019-07-20 18:43 | PHYS DOC ---
Past Medical History Past Medical History: Cancer, CHF, COPD Additional Past Medical Histor: LUNG AND PROSTATE CA (FANNY ROBERT APRN) Past Surgical History: No Surgical History (FANNY ROBERT APRN) Alcohol Use: None Drug Use: None (FANNY ROBERT APRN) Adult General Chief Complaint Chief Complaint: ABNORMAL LABS [facility] HPI Patient is a 84 year old male patient with history of COPD, CHF, who presents to the ED today from a local nursing to be evaluated for low hemoglobin, the report patient's hemoglobin yesterday was 6.3. Patient states his hemoglobin has been running low for a while. He does not have any complaints of rectal bleeding or vomiting. He reports [facility] (FANNY ROBERT APRN) Review of Systems Review of Systems Constitutional: Denies fever or chills [] Eyes: Denies change in visual acuity, redness, or eye pain [] HENT: Denies nasal congestion or sore throat [] Respiratory: Denies cough or shortness of breath [] Cardiovascular: Reports low hemoglobin. No additional information not addressed in HPI [] GI: Denies abdominal pain, nausea, vomiting, bloody stools or diarrhea [] : Denies dysuria or hematuria [] Musculoskeletal: Denies back pain or joint pain [] Integument: Denies rash or skin lesions [] Neurologic: Denies headache, focal weakness or sensory changes [] All other systems were reviewed and found to be within normal limits, except as documented in this note. (FANNY ROBERT APRN) Allergies Allergies Allergies Coded Allergies Type Severity Reaction Last Updated Verified amoxicillin Allergy Intermediate 07/20/19 Yes enalapril Allergy Intermediate 07/20/19 Yes (KRISTA ADAMSON DO) Physical Exam Physical Exam Constitutional: Denied. Patient, no acute distress, non-toxic appearance. [] HENT: Normocephalic, atraumatic, bilateral external ears normal, oropharynx moist, no oral exudates, nose normal. [] Eyes: PERRLA, EOMI, conjunctiva normal, no discharge. [] Neck: Normal range of motion, no tenderness, supple, no stridor. [] Cardiovascular:Heart rate regular rhythm, no murmur [] Lungs & Thorax: Slightly diminished posterior lung bases, oxygen chronically. Abdomen: Bowel sounds normal, soft, no tenderness, no masses, no pulsatile mas ses. [] Skin: PICC line noted on the right upper arm. Warm, dry, no erythema, no rash. [] Back: No tenderness, no CVA tenderness. [] Extremities: No tenderness, no cyanosis, no clubbing, ROM intact, no edema. [] Neurologic: Alert and oriented X 3, normal motor function, normal sensory function, no focal deficits noted. [] Psychologic: Affect normal, judgement normal, mood normal. [] (FANNY ROBERT APRN) Current Patient Data Vital Signs Vital Signs Date Time Temp Pulse Resp B/P (MAP) Pulse Ox O2 Delivery O2 Flow Rate FiO2 07/20/19 20:44 80 15 99/58 (72) 99 Nasal Cannula 3.0 07/20/19 16:00 97.0 97.0 (KRISTA ADAMSON DO) Lab Values Laboratory Tests Test 07/20/19 16:05 White Blood Count 15.3 x10^3/uL (4.0-11.0) H Red Blood Count 2.73 x10^6/uL (4.30-5.70) L Hemoglobin 7.2 g/dL (13.0-17.5) L Hematocrit 22.9 % (39.0-53.0) L Mean Corpuscular Volume 84 fL (79-100) Mean Corpuscular Hemoglobin 26 pg (25-35) Mean Corpuscular Hemoglobin Concent 31 g/dL (31-37) Red Cell Distribution Width 20.9 % (11.5-14.5) H Platelet Count 201 x10^3/uL (140-400) Neutrophils (%) (Auto) 93 % (31-73) H Lymphocytes (%) (Auto) 2 % (24-48) L Monocytes (%) (Auto) 5 % (0-9) Eosinophils (%) (Auto) 0 % (0-3) Basophils (%) (Auto) 0 % (0-3) Neutrophils # (Auto) 14.2 x10^3/uL (1.8-7.7) H Lymphocytes # (Auto) 0.3 x10^3/uL (1.0-4.8) L Monocytes # (Auto) 0.8 x10^3/uL (0.0-1.1) Eosinophils # (Auto) 0.0 x10^3/uL (0.0-0.7) Basophils # (Auto) 0.0 x10^3/uL (0.0-0.2) Segmented Neutrophils % 90 % (35-66) H Band Neutrophils % 6 % (0-9) Monocytes % 4 % (0-10) Platelet Estimate Adequate (ADEQUATE) Polychromasia Slight Hypochromasia Poikilocytosis Slight Anisocytosis Mod Target Cells Few Schistocytes Occ Sodium Level 137 mmol/L (136-145) Potassium Level 3.5 mmol/L (3.5-5.1) Chloride Level 94 mmol/L (98-107) L Carbon Dioxide Level 41 mmol/L (21-32) H Anion Gap 2 (6-14) L Blood Urea Nitrogen 33 mg/dL (8-26) H Creatinine 1.2 mg/dL (0.7-1.3) Estimated GFR (Cockcroft-Gault) 69.6 BUN/Creatinine Ratio 28 (6-20) H Glucose Level 82 mg/dL (70-99) Calcium Level 8.3 mg/dL (8.5-10.1) L Total Bilirubin 0.4 mg/dL (0.2-1.0) Aspartate Amino Transferase (AST) 34 U/L (15-37) Alanine Aminotransferase (ALT) 110 U/L (16-63) H Alkaline Phosphatase 106 U/L (46-116) Total Protein 6.4 g/dL (6.4-8.2) Albumin 2.3 g/dL (3.4-5.0) L Albumin/Globulin Ratio 0.6 (1.0-1.7) L Laboratory Tests 07/20/19 16:05 Laboratory Tests 07/20/19 16:05 (KRISTA ADAMSON DO) EKG EKG [] (FANNY ROBERT APRN) Radiology/Procedures Radiology/Procedures []PROCEDURE: CHEST AP ONLY CHEST AP ONLY History: Cough Comparison: June 21, 2019 Findings: Bilateral lower lung patchy opacities, decreased compared to prior. Resolved left pleural effusion. Small right pleural effusion. No pneumothorax. Normal heart size. Rightward curvature of the thoracic spine. Impression: 1. Decreased bilateral lower lung opacities compared to prior. 2. Decreased small right pleural effusion. Electronically signed by: Hayder Robert DO (07/20/2019 5:14 PM) [facility] DICTATED and SIGNED BY: HAYDER ROBERT DO DATE: 07/20/19 1714 (FANNY ROBERT APRN) Course & Med Decision Making Course & Med Decision Making Pertinent Labs and Imaging studies reviewed. (See chart for details) This is a 84-year-old male patient presenting to the ED today to be evaluated for low hemoglobin. FDC number was 6.3 drawn yesterday. Patient's hemoglobin in the ED 7.2, hematocrit 22.9. WBC was 15.2, chest x-ray shows improving infiltrates. Patient is [facility]. He is in no distress. He has low hemoglobin since June 2019. I [facility] to [facility] his [facility] treatments. He can follow-up with his own PCP. (FANNY ROBERT APRN) Dragon Disclaimer Dragon Disclaimer This electronic medical record was generated, in whole or in part, using a voice recognition dictation system. (FANNY ROBERT APRN) Departure Departure Impression: Primary Impression: Anemia Additional Impression: Pneumonia Disposition: 01 HOME, SELF-CARE Condition: STABLE Referrals: KELSY HOWARD MD (PCP) follow up next week Patient Instructions: Anemia, FAQs Additional Instructions: You were elevated in the emergency room, your hemoglobin in the ED is 7.2 with hematocrit of 22.9. Your chest x-ray shows you pneumonia is improving. Continue your antibiotic treatment. Follow-up with your own doctor. Attending Signature Attending Signature I have reviewed the PA/TRANSFERRER's note and plan of care. I was available for consult ation as needed during the patient's visit in the emergency department. I agree with the clinical impression, plan, and disposition. (KRISTA ADAMSON DO) Problem Qualifiers Primary Impression: Anemia Anemia type: unspecified type Qualified Codes: D64.9 - Anemia, unspecified Additional Impression: Pneumonia Pneumonia type: due to unspecified organism Laterality: bilateral Lung location: lower lobe of lung Qualified Codes: J18.1 - Lobar pneumonia, unspecified organism FANNY ROBERT APRN Jul 20, 2019 18:43 KRISTA ADAMSON DO Jul 21, 2019 02:53
[2019-07-20 20:44] VITALS: BP 99/58
--- NOTE | 2019-07-21 07:10 | EKG ---
[facility] [address] [place] [address] Test Date: 2019-07-20 Test Time: 16:15:06 Pat Name: LAVERNE HERRING Department: Room: Gender: M Pie Maker: : [id number] Requested By: FANNY ROBERT Order Number: [id number] Reading MD: Measurements Intervals [place] Rate: 82 P: 112 AL: 158 QRS: 102 QRSD: 100 T: 114 QT: 430 QTc: 506 Interpretive Statements SINUS RHYTHM RIGHTWARD AXIS LOW LIMB LEAD VOLTAGE QRS(T) CONTOUR ABNORMALITY CONSIDER ANTEROLATERAL MYOCARDIAL DAMAGE PROLONGED QT POSSIBLY ABNORMAL ECG RI6.01 No previous ECG available for comparison
== END 2019-07-20 21:35 | disposition home or self-care (01) ==
LOC: ER 15:53
DX: D64.9 Anemia, unspecified (principal); J18.1 Lobar pneumonia, unspecified organism; J44.9 Chronic obstructive pulmonary disease, unspecified; Z86.79 Personal history of other diseases of the circulatory system; Z88.1 Allergy status to other antibiotic agents; Z88.8 Allergy status to other drugs, medicaments and biological substances
CPT/HCPCS: 36415; 71045; 80053; 85007; 85025; 86850; 86900; 86901; 93005; 99285-25

== ENCOUNTER → 2019-11-03 | Outpatient (CLI) | payer MEDICARE, BC ==
[2019-09-21 15:00] VITALS: BP 114/69
[~2019-11-03] MED LIST changes: +ALBU2.5V5 NEB; +APIX5TAB PO; +ATOR10TA60 PO; +BUME1TAB3 PO; +CEFD300C PO; +FERR325T14 PO; +HYDR-2765 PO; +INSU100V8 SQ; +LEVO750T31 PO; +PANT40TA77 PO; +PRED-220 PO; +PRED20TA PO; +SITA50TA PO
--- NOTE | 2019-11-03 18:35 | RAD ---
CHEST PA LATERAL History: Shortness of breath Comparison: 09/20/2019 frontal view of the chest 08/29/2019 frontal view of the chest. Findings: Frontal and lateral views of the chest were obtained. The cardiomediastinal silhouette is normal. Pulmonary vasculature is normal decreasing interstitial infiltrate involving the right lower lung field is present. There is residual infiltrate still present however. No new infiltrates in the interval. Bony structures are unremarkable. IMPRESSION: Decreased right basilar infiltrate. Continued follow-up to assess resolution recommended. Electronically signed by: Gagandeep Sanchez MD (11/03/2019 6:32 PM) [id number]
== END | disposition home or self-care (01) ==
LOC: RAD 14:56
PROVIDERS: ATTEND Internal Medicine Pulmonary Disease
DX: R91.8 Other nonspecific abnormal finding of lung field (principal)
CPT/HCPCS: 71046